=== PATIENT | male | born 1980 | race Caucasian/White ===

== ENCOUNTER 2017-04-30 11:00 | Inpatient (IN) | payer MEDICARE, MEDICAID ==
[2017-04-30 11:40] LABS: Urine Bilirubin Negative (Negative); Urine Glucose Negative (Negative); Urine Nitrite Negative (Negative)
[2017-04-30 11:42] LABS: Hematocrit 49 % (42-52); Hemoglobin 16.7 g/dl (14.0-18.0); Mean Corpuscular HGB Conc 34 g/dl (31-36); Mean Corpuscular Hemoglobin 29 pg (27-31); Mean Corpuscular Volume 85 fL (80-94); Mean Platelet Volume 10 um3 (7.4-10.4); Red Blood Count 5.71 10^6/ul (4.0-5.4); Red Cell Distribution Width 14 % (10.5-15); White Blood Count 7.3 10^3/ul (3.5-10.8)
[2017-04-30 11:49] LABS: Comments Flag Yes
[2017-04-30 11:57] LABS: ALT 17 U/L (7-52); AST 20 U/L (13-39); Albumin 4.9 g/dL (3.2-5.2); Alkaline Phosphatase 32 U/L (34-104); Anion Gap 6 mmol/L (2-11); BUN/Creatinine Ratio 14.4 (8-20); Blood Urea Nitrogen 16 mg/dL (6-24); CO2 Carbon Dioxide 29 mmol/L (22-32); Calcium 9.7 mg/dL (8.6-10.3); Chloride 101 mmol/L (101-111); EGFR African American 97.5 (>60); EGFR Non-African American 75.8 (>60); Globulin 3.6 g/dL (2-4); Glucose 107 mg/dL (70-100); Potassium 3.9 mmol/L (3.5-5.0); Sodium 136 mmol/L (133-145); Total Protein 8.5 g/dL (6.4-8.9)
[2017-04-30 11:58] LABS: Benzodiazepine Urine Screen None Detected (None Detect)
[2017-04-30 11:59] LABS: Acetaminophen < 15 mcg/mL; Alcohol < 10 mg/dL (<10); Salicylate < 2.50 mg/dL (<30)
[2017-04-30 12:09] LABS: TSH (Thyroid Stimulating Horm) 4.55 mcIU/mL (0.34-5.60)
[2017-04-30] MEDS ORDERED: Acetaminophen TAB* 325 MG PO PRN (15:59)
[2017-04-30] MEDS ORDERED: Al Hydrox/Mg Hydrox/Simet LIQ* 30 ML UDC PO PRN (15:59)
[2017-04-30] MEDS: Divalproex ER TAB(*) 500 MG PO SCH (16:43)
--- NOTE | 2017-04-30 18:52 | ED ---
Sergo Zaragoza Benjamin, scribed for Sourav Carrera MD on 04/30/17 at 1119 . Psychiatric Complaint - HPI Summary HPI Summary: 36yo male c/o feeling depressed and hearing voices intermittently. Pt has hx of schizoaffective disorder and bipolar. Pt also reports SI with thoughts of cutting his wrist. SI comes and goes. Has been having trouble sleeping and eating lately. Medication he takes include Depakote and abilify shot, but pt reports missing his meds a few times in the last couple of days. - History Of Current Complaint Chief Complaint: EDPsychosocial Time Seen by Provider: 04/30/17 11:09 Hx Obtained From: Patient Onset/Duration: Gradual Onset, Lasting Hours, Still Present Timing: Intermittent Episode Lasting Severity Initially: Moderate Severity Currently: Moderate Character: Depressed Aggravating Factor(s): Nothing Alleviating Factor(s): Nothing Associated Signs And Symptoms: Positive: Negative Related History: Positive For: Prior Psychiatric Issues - schizoaffective and bipolar Has Suicidal: Reports: Thoughts, With A Plan - cutting his wrist - Allergies/Home Medications Allergies/Adverse Reactions: Allergies Allergy/AdvReac Type Severity Reaction Status Date / Time Ziprasidone [From New] Allergy See Comment Verified 04/30/17 11:07 Home Medications: Home Medications Aripiprazole Lauroxil [Aristada] 882 mg IM MONTHLY 04/30/17 [History Confirmed 04/30/17] Divalproex ER TAB(*) [Depakote ER TAB(*)] 1,500 mg PO DAILY 04/30/17 [History Confirmed 04/30/17] PMH/Surg Hx/FS Hx/Imm Hx Endocrine/Hematology History: Denies: Hx Diabetes, Hx Thyroid Disease Cardiovascular History: Denies: Hx Hypertension Respiratory History: Denies: Hx Asthma, Hx Chronic Obstructive Pulmonary Disease (COPD) GI History: Denies: Hx Ulcer Musculoskeletal History: Reports: Hx Orthopedic Injury - R Humerus fracture Psychiatric History: Reports: Hx Schizophrenia - schizoaffective D/O, Hx Bipolar Disorder, Hx of Violent Episodes Against Others Comment Only: Hx Eating Disorder - uncertain - Surgical History Surgery Procedure, Year, and Place: Right Fifth Finger Tendon Repair Hx Anesthesia Reactions: No Infectious Disease History: Denies: Hx Clostridium Difficile, Hx Hepatitis, Hx Human Immunodeficiency Virus (HIV), Hx of Known/Suspected MRSA, Hx Shingles, Hx Tuberculosis, Hx Known/ Suspected VRE, Hx Known/Suspected VRSA, History Other Infectious Disease, Traveled Outside the [place] in Last 30 Days - Family History Known Family History: Negative: Blood Disorder - Social History Occupation: Unemployed Lives: With Family Alcohol Use: Occasionally Substance Use Type: Reports: None, Other Smoking Status (MU): Never Smoked Tobacco Review of Systems Constitutional: Negative Negative: Fever, Chills Eyes: Negative ENT: Negative Cardiovascular: Negative Negative: Chest Pain Negative: Shortness Of Breath Gastrointestinal: Negative Genitourinary: Negative Musculoskeletal: Negative Skin: Negative Neurological: Negative Positive: Depressed, Other - SI with plan All Other Systems Reviewed And Are Negative: Yes Physical Exam Triage Information Reviewed: Yes Vital Signs On Initial Exam: Initial Vitals Temp Pulse Resp BP Pulse Ox 98.2 F 72 16 158/105 100 04/30/17 11:02 04/30/17 11:02 04/30/17 11:02 04/30/17 11:02 04/30/17 11:02 Vital Signs Reviewed: Yes Appearance: Positive: Well-Appearing, No Pain Distress, Well-Nourished Skin: Positive: Warm, Skin Color Reflects Adequate Perfusion, Dry Head/Face: Positive: Normal Head/Face Inspection Eyes: Positive: Normal ENT: Positive: Normal ENT inspection Neck: Positive: Supple, Nontender Respiratory/Lung Sounds: Positive: Clear to Auscultation, Breath Sounds Present Cardiovascular: Positive: RRR. Negative: Murmur Abdomen Description: Positive: Nontender, Soft Bowel Sounds: Positive: Present Musculoskeletal: Positive: Strength/ROM Intact Neurological: Positive: Sensory/Motor Intact, Alert, Oriented to Person Place, Time Psychiatric: Positive: Affect/Mood Appropriate Diagnostics - Vital Signs Vital Signs Temp Pulse Resp BP Pulse Ox 04/30/17 11:02 98.2 F 72 16 158/105 100 - Laboratory Lab Results: Lab Results 04/30/17 04/30/17 04/30/17 Range/Units 11:20 11:20 11:25 WBC 7.3 (3.5-10.8) 10^3/ul RBC 5.71 H (4.0-5.4) 10^6/ul Hgb 16.7 (14.0-18.0) g/dl Hct 49 (42-52) % MCV 85 (80-94) fL MCH 29 (27-31) pg MCHC 34 (31-36) g/dl RDW 14 (10.5-15) % Plt Count 199 (150-450) 10^3/ul MPV 10 (7.4-10.4) um3 Neut % (Auto) 77.7 (38-83) % Lymph % (Auto) 16.1 L (25-47) % [place] % (Auto) 5.2 (1-9) % Eos % (Auto) 0.7 (0-6) % Baso % (Auto) 0.3 (0-2) % Absolute Neuts (auto) 5.6 (1.5-7.7) 10^3/ul Absolute Lymphs (auto) 1.2 (1.0-4.8) 10^3/ul Absolute Monos (auto) 0.4 (0-0.8) 10^3/ul Absolute Eos (auto) 0.1 (0-0.6) 10^3/ul Absolute Basos (auto) 0 (0-0.2) 10^3/ul Absolute Nucleated RBC 0.01 10^3/ul Nucleated RBC % 0.1 Sodium (133-145) mmol/L Potassium (3.5-5.0) mmol/L Chloride (101-111) mmol/L Carbon Dioxide (22-32) mmol/L Anion Gap (2-11) mmol/L BUN (6-24) mg/dL Creatinine (0.67-1.17) mg/dL Est GFR ( Amer) (>60) Est GFR (Non-Af Amer) (>60) BUN/Creatinine Ratio (8-20) Glucose (70-100) mg/dL Calcium (8.6-10.3) mg/dL Total Bilirubin (0.2-1.0) mg/dL AST (13-39) U/L ALT (7-52) U/L Alkaline Phosphatase (34-104) U/L Total Protein (6.4-8.9) g/dL Albumin (3.2-5.2) g/dL Globulin (2-4) g/dL Albumin/Globulin Ratio (1-3) TSH (0.34-5.60) mcIU/mL Urine Color Colorless Urine Appearance Clear Urine pH 8.0 (5-9) Ur Specific [place] 1.003 L (1.010-1.030) Urine Protein Negative (Negative) Urine Ketones Negative (Negative) Urine Blood Negative (Negative) Urine Nitrate Negative (Negative) Urine Bilirubin Negative (Negative) Urine Urobilinogen Negative (Negative) Ur Leukocyte Esterase Negative (Negative) Urine Glucose Negative (Negative) Salicylates (<30) mg/dL Urine Opiates Screen None detected (None Detect) Acetaminophen mcg/mL Ur Barbiturates Screen None detected (None Detect) Valproic Acid (50-100) mcg/mL Ur Phencyclidine Scrn None detected (None Detect) Ur Amphetamines Screen None detected (None Detect) U Benzodiazepines Scrn None detected (None Detect) Urine Cocaine Screen None detected (None Detect) U Cannabinoids Screen None detected (None Detect) Serum Alcohol (<10) mg/dL 04/30/17 Range/Units 11:25 WBC (3.5-10.8) 10^3/ul RBC (4.0-5.4) 10^6/ul Hgb (14.0-18.0) g/dl Hct (42-52) % MCV (80-94) fL MCH (27-31) pg MCHC (31-36) g/dl RDW (10.5-15) % Plt Count (150-450) 10^3/ul MPV (7.4-10.4) um3 Neut % (Auto) (38-83) % Lymph % (Auto) (25-47) % [place] % (Auto) (1-9) % Eos % (Auto) (0-6) % Baso % (Auto) (0-2) % Absolute Neuts (auto) (1.5-7.7) 10^3/ul Absolute Lymphs (auto) (1.0-4.8) 10^3/ul Absolute Monos (auto) (0-0.8) 10^3/ul Absolute Eos (auto) (0-0.6) 10^3/ul Absolute Basos (auto) (0-0.2) 10^3/ul Absolute Nucleated RBC 10^3/ul Nucleated RBC % Sodium 136 (133-145) mmol/L Potassium 3.9 (3.5-5.0) mmol/L Chloride 101 (101-111) mmol/L Carbon Dioxide 29 (22-32) mmol/L Anion Gap 6 (2-11) mmol/L BUN 16 (6-24) mg/dL Creatinine 1.11 (0.67-1.17) mg/dL Est GFR ( Amer) 97.5 (>60) Est GFR (Non-Af Amer) 75.8 (>60) BUN/Creatinine Ratio 14.4 (8-20) Glucose 107 H (70-100) mg/dL Calcium 9.7 (8.6-10.3) mg/dL Total Bilirubin 0.70 (0.2-1.0) mg/dL AST 20 (13-39) U/L ALT 17 (7-52) U/L Alkaline Phosphatase 32 L (34-104) U/L Total Protein 8.5 (6.4-8.9) g/dL Albumin 4.9 (3.2-5.2) g/dL Globulin 3.6 (2-4) g/dL Albumin/Globulin Ratio 1.4 (1-3) TSH 4.55 (0.34-5.60) mcIU/mL Urine Color Urine Appearance Urine pH (5-9) Ur Specific [place] (1.010-1.030) Urine Protein (Negative) Urine Ketones (Negative) Urine Blood (Negative) Urine Nitrate (Negative) Urine Bilirubin (Negative) Urine Urobilinogen (Negative) Ur Leukocyte Esterase (Negative) Urine Glucose (Negative) Salicylates < 2.50 (<30) mg/dL Urine Opiates Screen (None Detect) Acetaminophen < 15 mcg/mL Ur Barbiturates Screen (None Detect) Valproic Acid 74.0 (50-100) mcg/mL Ur Phencyclidine Scrn (None Detect) Ur Amphetamines Screen (None Detect) U Benzodiazepines Scrn (None Detect) Urine Cocaine Screen (None Detect) U Cannabinoids Screen (None Detect) Serum Alcohol < 10 (<10) mg/dL Result Diagrams: 04/30/17 11:25 04/30/17 11:25 Lab Statement: Any lab studies that have been ordered have been reviewed, and results considered in the medical decision making process. Course/Dx - Course Course Of Treatment: Reviewed pts medication and allergy lists. Blood pressure noted. Pt is medically cleared for [facility] evaluation at 12:31. - Differential Dx/Clinical Impression Provider Diagnosis: Bipolar 1 disorder, depressed Discharge - Discharge Plan Condition: Stable Disposition: ADMITTED TO [facility] The documentation as recorded by the prateekibSergo puckett Benjamin accurately reflects the service I personally performed and the decisions made by me, Sourav Carrera MD.
[2017-05-01] MEDS: Divalproex ER TAB(*) 500 MG PO SCH (08:16)
--- NOTE | 2017-05-01 22:32 | HP ---
PSYCHIATRIC HISTORY AND PHYSICAL: DATE OF ADMISSION: 04/30/17 JUSTIFICATION FOR ADMISSION: The patient is in need of 24-hour supervision and care secondary to suicidal ideations. CHIEF COMPLAINT: "I think the voices came from the [employer], they are telling me to do things." HISTORY OF PRESENT ILLNESS: The patient is a 36-year-old, single, white male with a history of schizoaffective disorder, who was brought in by his parents on a voluntary basis secondary to vague passive suicidal ideations. The patient apparently has a history of sexual misconduct in the form of masturbating in public and when he gets manic, he tends to have sexualized symptoms. Within several days of this admission, he got into trouble after texting a 16-year-old female neighbor a sexually inappropriate message. Currently, the patient endorses auditory hallucinations as well as thought broadcasting and thought insertion stating "I talk to the [employer] and they told me it was okay to ask my neighbor to contact me when she turns 19." He has been fairly recently experiencing manic symptoms. He indicates that he missed several days' worth of his Depakote because he likes the feeling of being manic. I did check a valproic acid level in the emergency room, which was therapeutic at 74. The patient does present with fair amount of insight stating "I want to be a good person, not a bad one." He acknowledges having thoughts of suicide as well as hurting others, but denies any specific plans or urges to act on these. He feels at this point that he just needs a little more support and counseling. His parents indicated in our emergency facility that they feel he needs more intensive treatment including a day treatment program or perhaps a job. Currently, the patient is living with his parents and have joint custody of his 9-year-old daughter. PAST PSYCHIATRIC HISTORY: The patient's last admission here at [facility] was in June of 2013, at which time, he was sent to [facility]. He also had a hospitalization at [facility] in 2008, which was similarly followed by transfer to [facility]. In addition, he did have a psychiatric admission at [facility] in November of 2008. Outpatient treatment is with Dr. Alejandro Steiner at [facility] and he sees his counselor, Zaid López, approximately once per month. The patient used to receive case management services at the clinic; however, his director of casework services retired several years ago and he has been without these services since. Past psychiatric medications include trials of Invega, Thorazine, Ativan, and Geodon. His past diagnosis is schizoaffective disorder, bipolar type. SUBSTANCE ABUSE HISTORY: The patient used to be heavy cannabis smoker, but he has not done this in 7 to 8 years. He denies any other drug use. He is a nonsmoker and does not abuse alcohol. PAST MEDICAL HISTORY: He has a history of hypogonadism for which he used to take testosterone injections. CURRENT MEDICATIONS: Include: 1. Abilify. 2. Aristada, he takes 882 mg once monthly. 3. His last injection was administered on 04/09/17, with the next being due on 05/07/17. Other medications include Depakote 1500 mg p.o. daily. SOCIAL HISTORY: The patient is the oldest of 4 children with 2 younger brothers and 1 sister. He was born in [place], but moved to this area when he was 6 years old. He did get his associate's degree. He is currently and has a 9-year- old daughter. Often, he focuses on weightlifting. He has not worked since 2014 when he was laid off from [employer] in [place], [place]. LEGAL HISTORY: Indicates that he has been arrested for trespassing and public lewdness. He does have a history of masturbating in public as well as conflict with police and threatening others. At times, he has had potential association with white [employer] groups and has owned knives, although he minimizes this at this time. REVIEW OF SYSTEMS: The patient denies headache or double vision. He denies sore throat, chest pain, cough, or difficulty breathing. He denies abdominal pain, nausea, vomiting, diarrhea, or constipation. He denies difficulty ambulating, rashes, enlarged lymph nodes, fevers, or change in weight. PHYSICAL EXAMINATION VITAL SIGNS: Blood pressure elevated at 152/76, heart rate is 65, respiratory rate 16, temperature 97.5 degrees Fahrenheit, oxygen saturations are 100% on room air. HEENT: Head is normocephalic, atraumatic. NECK: Supple. CHEST: Clear to auscultation bilaterally. CARDIAC: Exam reveals normal heart sounds. ABDOMEN: Soft and nontender. MUSCULOSKELETAL: Exam reveals full range of motion in all 4 extremities. NEUROLOGICAL: He is grossly intact. SKIN: Warm and dry. MENTAL STATUS EXAM: The patient is a young white male, who is muscular, well built. He is balding, with eye glasses. He is calm, cooperative, makes good eye contact. I do note at times he peers over to the side as though responding to internal stimuli, but otherwise speech has a normal rate, tone, and volume. Mood appears to be euthymic with a somewhat flattened affect. Thought process is linear and goal directed. Thought content is significant for evidence of paranoia. He denies suicidal or homicidal ideations currently, although he has had these recently of a passive nature. He is endorsing auditory hallucinations , but denies visual hallucinations. He is also endorsing thought broadcasting and thought insertion. Insight and judgment appeared to be fair given his voluntary willingness to come here for treatment. Cognitively, he is awake and alert with what would appear to be an average intellect. LABORATORY DATA: Complete blood count is within normal limits as is his complete metabolic panel. Urinalysis is within normal limits. Urine drug screen is negative for all substances tested. His therapeutic valproic acid level is 74.0. DIAGNOSES: [place] I: Schizoaffective disorder, bipolar type. [place] II: Deferred. [place] III: Hypogonadism. [place] IV: Moderate primary support stressors. [place] V: At this time is 40. IMPRESSION: The patient is a 36-year-old white male with a history of schizoaffective disorder, who arrives voluntarily having been brought in by his parents due to a recent increase in manic and psychotic symptoms culminating in event in which he inappropriately text messaged his underage next door neighbor suggesting a sexual tryst. My understanding is that his neighbor's family is quite upset about this, although it is not clear that he has had legal ramifications as of yet. He is presenting with paranoia, auditory hallucinations, depressed mood, and an interest in changing his medications. PLAN: The patient is admitted to the adult behavioral health unit where he was placed on q.15-minute checks for his own safety. He has already resumed Depakote 1500 mg daily. He is wanting to switch back to the brand name of Abilify and so we will start a trial tomorrow of Abilify Maintena 400 mg monthly. I put in a phone call to his psychiatrist, Dr. Alejandro Steiner, seeking collateral information and we would certainly want to speak to his family members as well. While the patient is here, he is certainly encouraged to avail himself of all milieu activities including group and individual psychotherapies. There is some indiction that his parents perhaps will not allow him to come home and in that event, we would seek supportive housing in the community. [id number]/[facility] #: [id number] MTDSaul
[2017-05-02] MEDS: Divalproex ER TAB(*) 500 MG PO SCH (08:21)
--- NOTE | 2017-05-02 14:31 | PN ---
Subjective - Subjective Service Type: 00564 Hosp care 15 min low complexity Subjective: Osito appears in good spirits today with a reduction in paranoia and AH as well as reduced thought insertion and broadcasting. He tolerated the switch to Abilify Maintaina this AM and feels his symptoms are diminishing. He is future- oriented, talking about going back to college to get a bachelor's degree, and asking if a case-manager beverage through the clinic could help him with this. He has been safe on all checks with no inappropriate comments or behaviors noted. He requests d/c to his parents' home tomorrow. Objective - Appearance Appearance: Well Developed/Nourished Dysmorphic Features: No Hygiene: Normal Grooming: Well Kept - Behavior Psychomotor Activities: Normal Exhibits Abnormal Movement: No - Attitude and Relatedness Attitude and Relatedness: Cooperative Eye Contact: Good - Speech Quality: Unpressured Latencies: Normal Quantity: Appropriate - Mood Patient's Decription of Mood: "Good" - Affect Observed Affect: Unvariable Affect Consistent with: Euthymia - Thought Process Patient's Thought Process: Coherent Thought Content: No Passive Wish, No Suicidal Planning, No Homicidal Ideation, No Paranoid Ideation - Sensorium Experiencing Hallucinations: No, Sensorium is Clear Type of Hallucinations: Visual: No, Auditory: No, Command: No - Level of Consciousness Level of Consciousness: Alert Orientation: Yes Intact, Yes Orientated to Time, Yes Orientated to Place, Yes Orientated to Person - Impulse Control Impulse Control: Intact - Insight and Judgement Insight and Judgement: Good - Group Participation Particating in Group Activities: Yes - Medication Management Medication Management Adherence: Yes Assessment - Assessment Merits Inpatient Hospitalization: Consolidate Improvements, Pending Safe DC Plan Inpatient DSM-IV Dx: Schizoaffective, bipolar type Clinical Impression: 36 y.o. , white male with a history of schizoaffective disorder self- referred to the ED due to increased psychosis and inappropriate sexual behavior in the community. Acting on behalf of stanley he allegedly sent a minor female neighbor an invitation to have a sexual encounter with him. Plan - Plan Treatment Plan: Name: OSITO FERNANDEZ Birthdate: 1980 [id number] We have changed aripiprazole Aristada back to aripiprazole Maintaina, giving him the first dose of 400mg IM this AM. Spoke with outpatient psychiatrist, Dr. David Steiner at [facility], who is in support of the treatment plan. Will likely d/c to his parents' home tomorrow, Saturday, 05/03. Continued Medication Management: Different Medication Medications: Current Medications Acetaminophen (Tylenol Tab*) 650 mg PO Q4H PRN PRN Reason: for pain; or Temp >101 F Al Hydrox/Mg Hydrox/Simethicone (Maalox Plus*) 30 ml PO Q4H PRN PRN Reason: INDIGESTION Aripiprazole (Denisse Maintena (Nf)) 400 mg IM Q28D [facility] Last Admin: 05/02/17 09:52 Dose: 400 mg Divalproex Sodium (Depakote Er Tab(*)) 1,500 mg PO DAILY [facility] Last Admin: 05/02/17 08:21 Dose: 1,500 mg - Discharge Plan Discharge Plan: Outpatient Follow Up Outpatient Program: [facility]
--- NOTE | 2017-05-02 15:57 | PN ---
[facility]: Group Therapy Note - Service Type Service Type: 20135 Group Psychotherapy - Group Participation Patient Participating in Group: Yes Level of Group Participation: Attentive, Spontaneously Participate Relatedness to Group: Well Related
[2017-05-03] MEDS: Divalproex ER TAB(*) 500 MG PO SCH (07:37)
[2017-05-03 08:52] VITALS: BP 116/74
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
== END 2017-05-03 14:30 | disposition home or self-care (01) | DRG 885 ==
LOC: ED 11:00 → BSU 16:31
PROVIDERS: ADMIT Psychiatry & Neurology Psychiatry; ATTEND Psychiatry & Neurology Psychiatry
PROC: GZHZZZZ Group Psychotherapy (ICD-10-PCS; principal; 2017-04-30)
DX: F25.0 Schizoaffective disorder, bipolar type (principal); E23.0 Hypopituitarism; R45.851 Suicidal ideations; Z88.8 Allergy status to other drugs, medicaments and biological substances; Z72.89 Other problems related to lifestyle; Z56.0 Unemployment, unspecified
CPT/HCPCS: 36415; 80053; 80164; 80307; 80320; 80329; 81003; 84443; 85025; 90853; 99222; 99231; 99238; A9270-GY; G0480

== ENCOUNTER 2018-03-11 20:21 | Emergency (ER) | payer MEDICARE, MEDICAID ==
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
[2018-03-11 21:38] LABS: ABS Basophils 0 10^3/ul (0-0.2); ABS Eosinophils 0.2 10^3/ul (0-0.6); ABS Lymphocytes 2.2 10^3/ul (1.0-4.8); ABS Monocytes 0.4 10^3/ul (0-0.8); ABS Neutrophils 3.5 10^3/ul (1.5-7.7); ABS Nucleated RBC 0 10^3/ul; Eosinophil % 3.5 % (0-6); Hematocrit 45 % (42-52); Hemoglobin 16.1 g/dl (14.0-18.0); Lymphocyte % 34.9 % (25-47); Mean Corpuscular HGB Conc 36 g/dl (31-36); Mean Corpuscular Hemoglobin 30 pg (27-31); Mean Corpuscular Volume 84 fL (80-94); Mean Platelet Volume 9.9 um3 (7.4-10.4); Nucleated Red Blood Cells % 0.2; Platelet Count 215 10^3/ul (150-450); Red Blood Count 5.37 10^6/ul (4.00-5.40); Red Cell Distribution Width 14 % (10.5-15); White Blood Count 6.4 10^3/ul (3.5-10.8)
[2018-03-11 21:55] LABS: EGFR Non-African American 74.6 (>60)
--- NOTE | 2018-03-12 01:11 | ED ---
Luzma Zaragoza Rebecca, scribed for Paulette Turner MD on 03/12/18 at 0059 . Progress - Progress Note Progress Note: Pt was signed out by Dr. Garcia, pending dispo, awaiting MHE. Course/Dx - Course Course Of Treatment: Pt was signed out by Dr. Garcia, pending dispo, awaiting MHE. Upon completion of MHE and consultation with Dr. Son, it has been determined that the pt can be D/C to home with Dx of unspecified depression. - Diagnoses Provider Diagnoses: Depression Discharge - Sign-Out/Discharge Documenting (check all that apply): Discharge/Admit/Transfer - Discharge, Receiving Sign-Out Receiving patient FROM: Nick Garcia - Discharge Plan Condition: Stable Disposition: HOME Referrals: Rosas Osborn MD [Primary Care Provider] - The documentation as recorded by the Luzma rudolph Rebecca accurately reflects the service I personally performed and the decisions made by Yue fernandes Abdul, MD.
[2018-03-12 01:25] VITALS: BP 137/95
== END 2018-03-12 01:23 | disposition home or self-care (01) ==
LOC: ED 20:21
DX: F32.9 Major depressive disorder, single episode, unspecified (principal); F43.9 Reaction to severe stress, unspecified
CPT/HCPCS: 36415; 80053; 80320; 80329; 84443; 85025; 99285; G0480

== ENCOUNTER 2018-05-09 11:13 | Emergency (ER) | payer MEDICARE, MEDICAID ==
[2018-05-09 12:07] VITALS: BP 134/92
--- NOTE | 2018-05-09 13:24 | UC ---
Back Pain HPI - HPI Summary HPI Summary: c/o low back pain ever since he started working out, initially had pain on legs and started leaning forward to avoid pain there, then felt strain in lower back as he lifted weights. Devin radiation of pain to legs, denies numbness, sphincter control intact. - History of Current Complaint Chief Complaint: UCBackPain Stated Complaint: LOW BACK INJURY Time Seen by Provider: 05/09/18 13:08 Hx Obtained From: Patient Onset/Duration: Sudden Onset, Lasting Days Timing: Constant Severity Initially: Moderate Severity Currently: Moderate Pain Intensity: 7 Character: Dull, Aching Aggravating Factor(s): Movement, Lifting, Bending Alleviating Factor(s): Rest, Position Associated Signs And Symptoms: Positive: Negative - Risk Factors AAA Risk Factors: Negative TAD Risk Factors: Negative Cauda Equina Risk Factors: Negative Epidural Abscess Risk Factors: Negative - Allergies/Home Medications Allergies/Adverse Reactions: Allergies Allergy/AdvReac Type Severity Reaction Status Date / Time ziprasidone [From [facility]] Allergy Unknown Verified 05/09/18 12:02 Reaction Details PMH/Surg Hx/FS Hx/Imm Hx Previously Healthy: Yes Psychological History: Bipolar Disorder, Other - schizoaffective disorder Other Psychological History: schizoaffective disorder - Surgical History Surgical History: Yes Surgery Procedure, Year, and Place: Right Fifth Finger Tendon Repair, ~2002, [place] - Family History Known Family History: Positive: None Negative: Blood Disorder - Social History Alcohol Use: None Alcohol Amount: "once every ccouple of weeks" Substance Use Type: None Smoking Status (MU): Never Smoked Tobacco - Immunization History Most Recent Influenza Vaccination: this fall of 2012, unable to recall specific date. Most Recent Tetanus Shot: unable to recall Most Recent Pneumonia Vaccination: unable to recall Review of Systems Musculoskeletal: Arthralgia, Myalgia All Other Systems Reviewed And Are Negative: Yes Physical Exam Triage Information Reviewed: Yes Appearance: Well-Appearing, No Pain Distress, Well-Nourished Vital Signs: Initial Vital Signs Temp 97.4 F 05/09/18 11:58 Pulse 64 05/09/18 11:58 Resp 14 05/09/18 11:58 BP 134/92 05/09/18 11:58 Pulse Ox 100 05/09/18 11:58 Vital Signs Reviewed: Yes Eyes: Positive: Conjunctiva Clear ENT: Positive: Hearing grossly normal, Pharynx normal, TMs normal Neck: Positive: Supple, Nontender Respiratory: Positive: Chest non-tender Cardiovascular: Positive: Pulses Normal, Brisk Capillary Refill Abdomen Description: Positive: Nontender Bowel Sounds: Positive: Present Musculoskeletal: Positive: Strength Intact, ROM Intact, No Edema, Other: - DTR LE symmetric and present, SLR negative, sensory intact Neurological: Positive: Muscle Tone Normal Back Pain Course/Dx - Course Course Of Treatment: discussed with patient supervised exercises, referral to PT , ibuprofen and tizanidine as needed for pain, appropriate hydration - Differential Dx/Diagnosis Provider Diagnoses: low back strain Discharge - Sign-Out/Discharge Documenting (check all that apply): Patient Departure All imaging exams completed and their final reports reviewed: No Studies - Discharge Plan Condition: Stable Disposition: HOME Prescriptions: Ibuprofen TAB* [Motrin TAB* 600 MG] 600 mg PO Q6H PRN #30 tab PRN Reason: Pain tiZANidine TAB* [Zanaflex TAB*] 2 mg PO TID PRN 10 Days #30 tab PRN Reason: Pain Patient Education Materials: Ibuprofen (By mouth), Tizanidine (By mouth), Low Back Strain (ED), Core Strengthening Exercises (GEN), Lower Back Exercises (ED) Referrals: Rosas Osborn MD [Primary Care Provider] - - Billing Disposition and Condition Condition: STABLE Disposition: Home
== END 2018-05-09 13:47 | disposition home or self-care (01) ==
LOC: UCCORT 11:13
DX: S39.012A Strain of muscle, fascia and tendon of lower back, initial encounter (principal); X50.0XXA Overexertion from strenuous movement or load, initial encounter; Y93.B3 Activity, free weights; Y92.9 Unspecified place or not applicable; Z88.8 Allergy status to other drugs, medicaments and biological substances
CPT/HCPCS: 99212; G0463

== ENCOUNTER 2018-06-16 13:23 | Emergency (ER) | payer MEDICARE, MEDICAID ==
--- OUTSIDE RECORDS SUMMARY | 2018-06-16 13:48 | XMS REPORT ---
:1980 External Reference #:[id number] Author Organization [employer] Address [address] [place] [address] [place] [address] Phone [phone] Care Team Providers Name Role Phone Rosas Osborn MD Care Team Information Media Manager Unavailable Rosas Osborn MD Primary Care Physician Unavailable Payers Type Date Identification Numbers Payment Provider Subscriber Medicare Primary Effective: Policy Number: Medicare Osito Ayala 2010 [id number] PayID: [id number] [address] [place] [address] [facility] Policy Number: [id number] Medicaid Osito Ayala Group Name: [id number] [address] PayID: [id number] [place] [address] Problems Date Description Provider Status Onset: 04/12/2009 Bipolar disorder Rosas Osborn M.D.,FACP Active Onset: 10/03/2011 Iron deficiency anemia Inocencia Booth, N.P. Active Onset: 10/03/2011 Vitamin D deficiency Inocencia Booth, N.P. Active Onset: 10/03/2011 Allergic rhinitis Inocencia Booth, N.P. Active Onset: 10/03/2011 Pure hyperglyceridemia Inocencia Booth, N.P. Active Onset: 11/05/2012 Testicular hypofunction Rosas Osborn M.D.,FACP Active Family History Date Family Member(s) Problem(s) Comments General Lung Cancer Social History Type Date Description Comments Lives With Family Occupation Unemployed Cigarette Use Never Smoked Cigarettes ETOH Use 01/01/2016 Denies alcohol use Recreational Drug Use Denies Drug Use Smoking Patient has never smoked General Hx Text 1 daughter, 6 yo Allergies, Adverse Reactions, Alerts Date Description Reaction Status Severity Comments 03/30/2008 NKDA active Medications Medication Date Status Form Strength Qnty SIG Indications Ordering Provider Ciclopirox 02/24 Active Cream 0.77% 30gm apply to Rosas Olamine /2017 affected Dell Osborn, area every M.D.,FACP day as needed mixed w/ topical steroid Triamcinolone 02/24 Active Cream 0.025% 80gm topical to Rosas Acetonide /2017 face/neck Dell Osborn, qd prn M.D.,FACP Depakote Active Tablets DR 500mg 3 tabs po q Unknown / morning Abilify Maintena Active Suspension 500-600mg 1 injection Unknown / Rec per month Vitamin D Active Tablets 1000Unit by mouth Unknown / everyday Mometasone 01/23 Hx Suspension 50mcg/Act 17gm 1 spray Rosas Furoate /2016 each Dell Osborn, - nostril qd M.D.,FACP 01/24 Androderm 04/22 Hx Patches 4mg/24HR 30uni topical qd 257.2 Rosas 24HR ts Dell Osborn, - Ernst.Dell,[facility] 04/27 3ML 10/28 Hx Misc 22G X 1" 6unit use weekly 257.2 Rosas Syringe/Needle /2012 3 ML s for Sav Mayer Wall - ashely Ortega,[facility] Luer-[place] 22GX1" 06/08 e Im injections 3ML 10/07 Hx Misc 22G X 1" 12uni use weekly 257.2 Rosas Syringe/Needle /2012 3 ML ts for Dell Osborn Thin Wall - testosteron Shannon,[facility] Luer-[place] 22GX1" 10/07 e Im injections 3ML Luer-[place] 10/07 Hx Misc 21G X 1" 12uni im q 2 257.2 Rosas Syringe 20G /2012 3 ML ts weeks for Dell Osborn, X 1" - Ashely Ortega,[facility] 10/28 e injections Testosterone 10/03 Hx Oil 200mg/ml 10ml 1.5 ml im 257.2 [place] Cypionate /2012 q2wks Viridiana Andres M.D. 06/08 Testosterone 10/02 Hx Oil 100mg/ml 2ml 1 ml im q2 257.2 Rosas Cypionate /2012 weeks. Viridiana Mayer M.D.,[facility] 10/03 2-3ML 10/02 Hx Misc 3ml 12uni with needle 257.2 Rosas Syringe/Luer /2012 ts 18 gauge Dell Osborn, Lock Tip - 2x/mon Ernst.Dell,[facility] 10/07 Androderm 09/03 Hx Patches 4mg/24HR 30uni topical qd 257.2 24HR ts Viridiana Mayer M.D.,[facility] 11/05 Axiron 09/01 Hx Solution 30mg/Act 60dos 1 pump each 257.2 es underarm qd Viridiana Mayer M.D.,[facility] 09/03 Fluticasone 10/03 Hx Suspension 50mcg/Act 16gm Inhale 2 477.9 Inocencia Propionate sprays into [place]-[facility] - nostril atson, 09/01 daily in N.P. /2011 each nostril for allergic rhinitis Pramipexole 12/20 Hx Tablets 0.25mg 60tab take 1 to 2 333.94 Rosas Dihydrochloride /2010 s tablets at Dell Osborn, - bedtime if M.DPrimo,[facility] 10/03 needed Invega 07/28 Hx Tablets ER 9mg po qd 24HR Viridiana Mayer M.D.,[facility] 08/04 Mirapex 07/28 Hx Tablets 0.25mg 60tab take one to 333.94 Rosas s two tablet Dell Osborn, - at bedtime M.DPrimo,[facility] 12/20 as needed Invega 03/30 Hx Tablets ER ? 1 po qAM Rosas 24HR Viridiana Mayer M.D.,[facility] 07/28 Viagra 03/30 Hx Tablets 50mg 3tabs 1 po prn 607.84 Viridiana Mayer M.D.,[facility] 10/03 Vitamin D 01/23 Hx Capsules 400Unit 60cap 1 po bid s Viridiana Mayer M.D.,[facility] 09/01 Risperdal 09/20 Hx Tablets 3mg 1 po qpm Viridiana Mayer M.D.,[facility] 03/30 Depakote 05/[address] 250mg 2 po in evening Viridiana Mayer M.D.,[facility] 08/04 Depakote 05/[address] 500mg 3 po @ 6pm 300.00 nightly Viridiana Mayer M.D.,[facility] 10/03 Risperdal 05/04 Hx Tablets 4mg 30tab by mouth at s 8PM daily Viridiana Mayer M.D.,[facility] 09/20 Depakote ER 05/04 Hx Tablets ER 250mg 30tab 1 tab PO 24HR s q6pm with Dell Osborn - 500x3 Shannon,[facility] 05/10 depakote Lexapro 07/14 Hx Tablets 10mg 30tab 1 PO Every 300.00 s Day Viridiana Mayer M.D.,[facility] 04/12 samples Risperdal Hx Tablets 30tab 1 po at 6PM Unknown /0000 s - 05/04 Depakote ER Hx Tablets ER 500mg 90tab 3 tabs PO 300.00 24HR s at 6PM Viridiana Mayer M.D.,[facility] 05/10 Testosterone 00 Hx Injections - 06/12 Invega Sustenna Hx Suspension 117mg/0.7 Im every 4 Unknown /0000 5ML weeks. - 06/07 Paxil Hx Tablets 40mg 1 po qd Unknown / - 06/07 Abilify Hx Tablets 20mg 30tab 1 by mouth / s every day - 12/18 Vitamin D 00/ Hx Liquid 400Unit/M Unknown /0000 L - 02/24 Immunizations CPT Code Status Date Vaccine Lot # [id number] Given 05/20/2016 Flu Vaccine [place] [id number] Given 06/07/2014 Influenza Virus Vaccine, Quadrivalent, Split, [id number] Preservative Free [id number] Given 06/12/2013 Flu Vaccine Split Virus Preservative Free For [id number] Indiv 3Yr Older [id number] Given 09/01/2012 Fluvirin Im 3Yrs And Older [id number] Q2038 Given 07/26/2011 Fluzone Vaccine 20137 Given 07/21/2010 Influenza Virus 3Yrs & Over [id number] Vital Signs Date Vital Result Comment 05/21/2018 Height 69 inches 5'9" Weight 203.00 lb Heart Rate 64 /min BP Systolic Sitting 120 mmHg BP Diastolic Sitting 88 mmHg O2 % BldC Oximetry 99 % BMI (Body Mass Index) 30.0 kg/m2 02/24/2018 Height 69 inches 5'9" Weight 207.00 lb Heart Rate 64 /min BP Systolic Sitting 126 mmHg BP Diastolic Sitting 80 mmHg Body Temperature 96.0 F O2 % BldC Oximetry 98 % BMI (Body Mass Index) 30.6 kg/m2 11/20/2017 Weight 216.25 lb Heart Rate 68 /min BP Systolic 130 mmHg BP Diastolic 85 mmHg Body Temperature 98.9 F O2 % BldC Oximetry 98 % 01/23/2017 Weight 209.38 lb Heart Rate 72 /min BP Systolic Sitting 150 mmHg BP Diastolic Sitting 100 mmHg BP Systolic Recheck 148 mmHg BP Diastolic Recheck 95 mmHg Body Temperature 97.1 F O2 % BldC Oximetry 99 % 12/19/2015 Height 68.5 inches 5'8.50" Weight 208.25 lb Heart Rate 60 /min BP Systolic Sitting 139 mmHg BP Diastolic Sitting 83 mmHg Body Temperature 97.0 F O2 % BldC Oximetry 99 % BMI (Body Mass Index) 31.2 kg/m2 10/10/2015 Height 68.5 inches 5'8.50" Weight 208.00 lb Heart Rate 56 /min BP Systolic 117 mmHg BP Diastolic 68 mmHg Body Temperature 97.2 F O2 % BldC Oximetry 100 % BMI (Body Mass Index) 31.2 kg/m2 06/21/2014 Height 68.5 inches 5'8.50" Weight 213.50 lb Heart Rate 72 /min BP Systolic Sitting 128 mmHg BP Diastolic Sitting 84 mmHg Body Temperature 97.5 F BMI (Body Mass Index) 32.0 kg/m2 06/07/2014 Height 69 inches 5'9" Weight 222.25 lb Heart Rate 88 /min BP Systolic Sitting 160 mmHg BP Diastolic Sitting 80 mmHg Body Temperature 97.7 F O2 % BldC Oximetry 98 % BMI (Body Mass Index) 32.8 kg/m2 04/22/2014 Height 69 inches 5'9" Weight 211.00 lb Heart Rate 108 /min BP Systolic Sitting 134 mmHg BP Diastolic Sitting 88 mmHg Body Temperature 96.9 F BMI (Body Mass Index) 31.2 kg/m2 03/17/2014 Height 69 inches 5'9" Weight 205.00 lb Heart Rate 80 /min BP Systolic Sitting 126 mmHg BP Diastolic Sitting 80 mmHg BMI (Body Mass Index) 30.3 kg/m2 06/12/2013 Weight 188.50 lb Heart Rate 86 /min BP Systolic Sitting 170 mmHg BP Diastolic Sitting 82 mmHg 12/31/2012 Height 69 inches 5'9" Weight 200.50 lb Heart Rate 80 /min BP Systolic Sitting 118 mmHg BP Diastolic Sitting 74 mmHg BMI (Body Mass Index) 29.6 kg/m2 11/05/2012 Height 68.5 inches 5'8.50" Weight 201.00 lb Heart Rate 88 /min BP Systolic Sitting 122 mmHg BP Diastolic Sitting 84 mmHg BMI (Body Mass Index) 30.1 kg/m2 10/02/2012 Weight 204.00 lb Heart Rate 76 /min BP Systolic Sitting 146 mmHg BP Diastolic Sitting 86 mmHg 09/01/2012 Height 68.50 inches 5'8.50" Weight 195.00 lb BMI (Body Mass Index) 29.2 kg/m2 10/03/2011 Height 68.50 inches 5'8.50" Weight 220.00 lb Heart Rate 89 /min BP Systolic Sitting 135 mmHg BP Diastolic Sitting 95 mmHg Body Temperature 96.1 F BMI (Body Mass Index) 33.0 kg/m2 09/01/2010 Weight 248.00 lb Heart Rate 90 /min BP Systolic Sitting 132 mmHg BP Diastolic Sitting 86 mmHg 07/28/2010 Weight 240.00 lb Heart Rate 80 /min BP Systolic Sitting 140 mmHg BP Diastolic Sitting 90 mmHg 03/30/2010 Weight 234.00 lb Heart Rate 80 /min BP Systolic Sitting 136 mmHg BP Diastolic Sitting 82 mmHg 01/23/2010 Weight 241.00 lb Heart Rate 80 /min BP Systolic 136 mmHg BP Diastolic 80 mmHg 09/20/2009 Weight 232.00 lb Heart Rate 76 /min BP Systolic Sitting 115 mmHg BP Diastolic Sitting 75 mmHg 08/03/2009 Weight 221.00 lb Heart Rate 70 /min BP Systolic Sitting 130 mmHg BP Diastolic Sitting 90 mmHg 05/04/2009 Weight 213.00 lb Heart Rate 90 /min BP Systolic Sitting 120 mmHg BP Diastolic Sitting 70 mmHg 04/12/2009 Weight 197.50 lb Heart Rate 130 /min BP Systolic Sitting 142 mmHg BP Diastolic Sitting 80 mmHg Respiratory Rate 24 /min 07/14/2008 Height 69 inches 5'9" Weight 182.00 lb Heart Rate 68 /min BP Systolic Sitting 128 mmHg BP Diastolic Sitting 76 mmHg BMI (Body Mass Index) 26.9 kg/m2 03/30/2008 Height 69 inches 5'9" Weight 173.00 lb Heart Rate 68 /min BP Systolic Sitting 164 mmHg BP Diastolic Sitting 80 mmHg BMI (Body Mass Index) 25.5 kg/m2 Results Test Date Test Result H/L Range Note CBC Auto Diff 03/11/2018 White Blood Count 6.4 10^3/uL 3.5-10.8 Red Blood Count 5.37 10^6/uL 4.00-5.40 Hemoglobin 16.1 g/dL 14.0-18.0 Hematocrit 45 % 42-52 Mean Corpuscular Volume 84 fL 80-94 Mean Corpuscular Hemoglobin 30 pg 27-31 Mean Corpuscular HGB Conc 36 g/dL 31-36 Red Cell Distribution Width 14 % 10.5-15 Platelet Count 215 10^3/uL 150-450 Mean Platelet Volume 9.9 um3 7.4-10.4 Abs Neutrophils 3.5 10^3/uL 1.5-7.7 Abs Lymphocytes 2.2 10^3/uL 1.0-4.8 Abs Monocytes 0.4 10^3/uL 0-0.8 Abs Eosinophils 0.2 10^3/uL 0-0.6 Abs Basophils 0 10^3/uL 0-0.2 Abs Nucleated RBC 0 10^3/uL Granulocyte % 54.4 % 38-83 Lymphocyte % 34.9 % 25-47 Monocyte % 6.7 % 0-7 Eosinophil % 3.5 % 0-6 Basophil % 0.5 % 0-2 Nucleated Red Blood Cells % 0.2 Comp Metabolic Panel 03/11/2018 Sodium 139 mmol/L 135-145 Chloride 102 mmol/L 101-111 Co2 Carbon Dioxide 30 mmol/L 22-32 Glucose 101 mg/dL High 70-100 Blood Urea Nitrogen 14 mg/dL 6-24 Creatinine 1.12 mg/dL 0.67-1.17 BUN/Creatinine Ratio 12.5 8-20 Calcium 9.6 mg/dL 8.6-10.3 Total Protein 7.8 g/dL 6.4-8.9 Albumin 4.5 g/dL 3.2-5.2 Globulin 3.3 g/dL 2-4 Albumin/Globulin Ratio 1.4 1-3 Total Bilirubin 0.40 mg/dL 0.2-1.0 Alkaline Phosphatase 34 U/L 34-104 Alt 18 U/L 7-52 Egfr Non- 74.6 >60 Egfr 90.3 >60 1 Potassium TNP mmol/L 3.5-5.0 2 Anion Gap 7 mmol/L 2-11 Ast TNP U/L 13-39 3 Laboratory test finding 03/11/2018 Acetaminophen < 15 g/mL 4 Alcohol < 10 mg/dL <10 Salicylate < 2.50 mg/dL <30 TSH (Thyroid Stim Horm) 2.87 mcIU/mL 0.34-5.60 Urinalysis Profile 04/30/2017 Urine Color Colorless Urine Appearance Clear Urine Specific [place] 1.003 Low 1.010-1.030 Urine pH 8.0 5-9 Urine Urobilinogen Negative Negative Urine Ketones Negative Negative Urine Protein Negative Negative Urine Leukocytes Negative Negative Urine Blood Negative Negative Urine Nitrite Negative Negative Urine Bilirubin Negative Negative Urine Glucose Negative Negative Urine Drug SCR ED & 04/30/2017 Amphetamine Ur Screen None Detected None Detect Pain Clinic Barbiturates Urine Screen None Detected None Detect Benzodiazepine Urine Screen None Detected None Detect Urine Cannabinoids Screen None Detected None Detect Urine Cocaine Screen None Detected None Detect Urine Opiates Screen None Detected None Detect Urine Phencyclidine Screen None Detected None Detect 5 Comp Metabolic Panel 04/30/2017 Sodium 136 mmol/L 133-145 Potassium 3.9 mmol/L 3.5-5.0 Chloride 101 mmol/L 101-111 Co2 Carbon Dioxide 29 mmol/L 22-32 Anion Gap 6 mmol/L 2-11 Glucose 107 mg/dL High 70-100 Blood Urea Nitrogen 16 mg/dL 6-24 Creatinine 1.11 mg/dL 0.67-1.17 BUN/Creatinine Ratio 14.4 8-20 Calcium 9.7 mg/dL 8.6-10.3 Total Protein 8.5 g/dL 6.4-8.9 Albumin 4.9 g/dL 3.2-5.2 Globulin 3.6 g/dL 2-4 Albumin/Globulin Ratio 1.4 1-3 Total Bilirubin 0.70 mg/dL 0.2-1.0 Alkaline Phosphatase 32 U/L Low 34-104 Alt 17 U/L 7-52 Ast 20 U/L 13-39 Egfr Non- 75.8 >60 Egfr 97.5 >60 6 Laboratory test finding 04/30/2017 Valproic Acid (Depakene) 74.0 g/mL 50-100 Acetaminophen < 15 g/mL 7 Alcohol < 10 mg/dL <10 Salicylate < 2.50 mg/dL <30 TSH (Thyroid Stim Horm) 4.55 mcIU/mL 0.34-5.60 CBC Auto Diff 04/30/2017 White Blood Count 7.3 10^3/uL 3.5-10.8 Red Blood Count 5.71 10^6/uL High 4.0-5.4 Hemoglobin 16.7 g/dL 14.0-18.0 Hematocrit 49 % 42-52 Mean Corpuscular Volume 85 fL 80-94 Mean Corpuscular Hemoglobin 29 pg 27-31 Mean Corpuscular HGB Conc 34 g/dL 31-36 Red Cell Distribution Width 14 % 10.5-15 Platelet Count 199 10^3/uL 150-450 Mean Platelet Volume 10 um3 7.4-10.4 Abs Neutrophils 5.6 10^3/uL 1.5-7.7 Abs Lymphocytes 1.2 10^3/uL 1.0-4.8 Abs Monocytes 0.4 10^3/uL 0-0.8 Abs Eosinophils 0.1 10^3/uL 0-0.6 Abs Basophils 0 10^3/uL 0-0.2 Abs Nucleated RBC 0.01 10^3/uL Granulocyte % 77.7 % 38-83 Lymphocyte % 16.1 % Low 25-47 Monocyte % 5.2 % 1-9 Eosinophil % 0.7 % 0-6 Basophil % 0.3 % 0-2 Nucleated Red Blood Cells % 0.1 Testosterone Free & Total 12/19/2015 Free Testosterone ng/dl 11.4 ng/dL 4.85-19.0 8 Testosterone 367 ng/dL 240-950 9 CBC Auto Diff 12/19/2015 White Blood Count 5.4 10^3/uL 3.5-10.8 Red Blood Count 5.30 10^6/uL 4.0-5.4 Hemoglobin 15.8 g/dL 14.0-18.0 Hematocrit 46 % 42-52 Mean Corpuscular Volume 86 fL 80-94 Mean Corpuscular Hemoglobin 30 pg 27-31 Mean Corpuscular HGB Conc 35 g/dL 31-36 Red Cell Distribution Width 14 % 10.5-15 Platelet Count 208 10^3/uL 150-450 Mean Platelet Volume 10 um3 7.4-10.4 Abs Neutrophils 3.3 10^3/uL 1.5-7.7 Abs Lymphocytes 1.5 10^3/uL 1.0-4.8 Abs Monocytes 0.5 10^3/uL 0-0.8 Abs Eosinophils 0.2 10^3/uL 0-0.6 Abs Basophils 0 10^3/uL 0-0.2 Abs Nucleated RBC 0 10^3/uL Granulocyte % 60.0 % 38-83 Lymphocyte % 27.3 % 25-47 Monocyte % 8.8 % 1-9 Eosinophil % 3.5 % 0-6 Basophil % 0.4 % 0-2 Nucleated Red Blood Cells % 0.1 FSH And LH 12/19/2015 FSH (Follicle Stim Hormone) 2.4 mIU/mL 1-20 LH (Lutenizing Hormone) 3.0 ?IU/mL 2-12 Laboratory test finding 09/06/2014 Testosterone 341.52 ng/dL 240-950 Laboratory test finding 06/21/2014 Testosterone 247.99 ng/dL 240-950 10 , 11 Comp Metabolic Panel 06/21/2014 Sodium 136 mmol/L 133-145 10 Potassium 4.2 mmol/L 3.7-5.6 10 Chloride 101 mmol/L 101-111 10 Co2 Carbon Dioxide 29 mmol/L 22-32 10 Anion Gap 6 mmol/L 2-11 10 Glucose 86 mg/dL 70-100 10 Blood Urea Nitrogen 13 mg/dL 6-24 10 Creatinine 0.91 mg/dL 0.67-1.17 10 BUN/Creatinine Ratio 14.3 8-20 10 Calcium 9.6 mg/dL 8.6-10.3 10 Total Protein 7.4 g/dL 6.4-8.9 10 Albumin 4.3 g/dL 3.2-5.2 10 Globulin 3.1 g/dL 2-4 10 Albumin/Globulin Ratio 1.4 1-3 10 Total Bilirubin 0.40 mg/dL 0.2-1.0 10 Alkaline Phosphatase 38 U/L 34-104 10 Alt 17 U/L 7-52 10 Ast 15 U/L 13-39 10 Egfr Non- 97.2 >60 10 Egfr 125.0 >60 10, 12 CBC With Manual Diff 06/21/2014 White Blood Count 6.0 10^3/uL 4.8-10.8 10 Red Blood Count 4.72 10^6/uL 4.0-5.4 10 Hemoglobin 13.8 g/dL Low 14.0-18.0 10 Hematocrit 40 % Low 42-52 10 Mean Corpuscular Volume 84 fL 80-94 10 Mean Corpuscular Hemoglobin 29 pg 27-31 10 Mean Corpuscular HGB Conc 35 g/dL 31-36 10 Red Cell Distribution Width 13 % 10.5-15 10 Platelet Count 269 10^3/uL 150-450 10 Mean Platelet Volume 9 um3 7.4-10.4 10 Abs Neutrophils 3.7 10^3/uL 1.5-7.7 10 Abs Lymphocytes 1.6 10^3/uL 1.0-4.8 10 Abs Monocytes 0.6 10^3/uL 0-0.8 10 Abs Eosinophils 0.1 10^3/uL 0-0.6 10 Abs Basophils 0 10^3/uL 0-0.2 10 Abs Nucleated RBC 0 10^3/uL 10 Neutrophil % 66 % 38-83 10 Band % 1 % 0-8 10 Lymphocytes % 20 % Low 25-47 10 Monocytes % 12 % 0-13 10 Eosinophils % 1 % 0-6 10 RBC Morphology Normal Normal 10 Laboratory test finding 06/21/2014 PSA Screening 0.764 ng/mL 0-4.000 10 , 13 LDL Cholesterol Direct 52 mg/dL 10, 14 Valproic Acid 52 g/mL 50.0-100.0 10, 15 Lipid Profile (Trig/Chol/HDL) 06/21/2014 Triglycerides 207 mg/dL 10, 16 Cholesterol 98 mg/dL 10, 17 HDL Cholesterol 24.6 mg/dL 10, 18 LDL Cholesterol 32 mg/dL 10, 19 Laboratory test finding 04/09/2014 Testosterone 258.44 ng/dL 240-950 Throat-Beta Strept 01/25/2014 Throat Beta Strep Culture (SEE NOTE) 20 Urinalysis 06/25/2013 Urine Color Yellow Urine Appearance Clear Urine Specific [place] 1.022 1.010-1.030 Urine Esterase Negative Negative Urine Nitrate Negative Negative Urine Urobilinogen Negative E.U./dL Negative Urine Protein Negative mg/dL Negative Urine pH 7.0 5-9 Urine Blood Negative Negative Urine Ketones Negative mg/dL Negative Urine Bilirubin Negative Negative Urine Glucose Negative mg/dL Negative Laboratory test finding 06/25/2013 Acetaminophen < 10 g/mL Low 10-30 21 Alcohol < 10 mg/dL Less Than 10 22 Salicylate < 4.0 Less Than 30 TSH (Thyroid Stimulating Horm) 4.47 miu/mL 0.34-5.60 Comp Metabolic Panel 06/25/2013 Sodium 138 mmol/L 133-145 Potassium 3.5 mmol/L 3.5-5.0 Chloride 106 mmol/L 101-111 Co2 Carbon Dioxide 26.0 mmol/L 22-32 Anion Gap 6.0 mmol/L 2-11 Glucose 97 mg/dL 70-100 Blood Urea Nitrogen 27 mg/dL High 6-24 Creatinine 1.00 mg/dL 0.50-1.40 BUN/Creatinine Ratio 27.0 High 8-20 Calcium 9.1 mg/dL 8.1-9.9 Total Protein 6.8 g/dL 6.2-8.1 Albumin 3.9 g/dL 3.6-5.4 Globulin 2.9 g/dL 2-4 Albumin/Globulin Ratio 1.3 1-3 Total Bilirubin 0.5 mg/dL 0.4-1.5 Alkaline Phosphatase 39 U/L 30-110 Alt 26 U/L 14-54 Ast 26 U/L 12-42 Egfr Non- 87.7 >60 Egfr 112.8 >60 23 Urine Drug SCR ED & 06/25/2013 Amphetamine Ur Screen None Detected None Detect Pain Clinic Barbiturates Urine Screen None Detected None Detect Benzodiazepine Urine Screen None Detected None Detect Urine Cannabinoids Screen None Detected None Detect Urine Cocaine Screen None Detected None Detect Urine Opiates Screen None Detected None Detect Urine Phencyclidine Screen None Detected None Detect 24 CBC Auto Diff 06/25/2013 White Blood Count 7.5 10^3/uL 4.8-10.8 Red Blood Count 5.26 10^6/uL 4.0-5.4 Hemoglobin 15.7 g/dL 14.0-18.0 Hematocrit 45 % 42-52 Mean Corpuscular Volume 86 fL 80-94 Mean Corpuscular Hemoglobin 30 pg 27-31 Mean Corpuscular HGB Conc 35 g/dL 31-36 Red Cell Distribution Width 15 % 10.5-15 Platelet Count 223 10^3/uL 150-450 Mean Platelet Volume 10 um3 7.4-10.4 Abs Neutrophils 4.3 10^3/uL 1.5-7.7 Abs Lymphocytes 2.1 10^3/uL 1.0-4.8 Abs Monocytes 0.8 10^3/uL 0-0.8 Abs Eosinophils 0.2 10^3/uL 0-0.6 Abs Basophils 0 10^3/uL 0-0.2 Abs Nucleated RBC 0 10^3/uL Granulocyte % 57.4 % 38-83 Lymphocyte % 28.2 % 25-47 Monocyte % 11.1 % High 1-9 Eosinophil % 3.0 % 0-6 Basophil % 0.3 % 0-2 Nucleated Red Blood Cells % 0 CBC Auto Diff 01/23/2013 White Blood Count 9.6 10^3/uL 4.8-10.8 Red Blood Count 5.39 10^6/uL 4.0-5.4 Hemoglobin 15.2 g/dL 14.0-18.0 Hematocrit 45 % 42-52 Mean Corpuscular Volume 83 fL 80-94 Mean Corpuscular Hemoglobin 28 pg 27-31 Mean Corpuscular HGB Conc 34 g/dL 31-36 Red Cell Distribution Width 15 % 10.5-15 Platelet Count 295 10^3/uL 150-450 Mean Platelet Volume 9 um3 7.4-10.4 Abs Neutrophils 6.4 10^3/uL 1.5-7.7 Abs Lymphocytes 1.8 10^3/uL 1.0-4.8 Abs Monocytes 1.0 10^3/uL High 0-0.8 Abs Eosinophils 0.3 10^3/uL 0-0.6 Abs Basophils 0 10^3/uL 0-0.2 Abs Nucleated RBC 0 10^3/uL Manual Differential 01/23/2013 Neutrophil % 76 % 38-83 Band % 5 % 0-8 Lymphocytes % 12 % Low 25-47 Monocytes % 7 % 0-13 RBC Morphology Normal Normal Liver Function Panel 01/23/2013 Total Protein 7.1 g/dL 6.2-8.1 Albumin 3.9 g/dL 3.6-5.4 Globulin 3.2 g/dL 2-4 Albumin/Globulin Ratio 1.2 1-3 Total Bilirubin 0.5 mg/dL 0.4-1.5 Direct Bilirubin 0.1 mg/dL 0.1-0.5 Indirect Bilirubin 0.4 mg/dL 0.3-1.0 Alkaline Phosphatase 55 U/L 30-110 Alt 50 U/L 14-54 Ast 37 U/L 12-42 Laboratory test finding 01/23/2013 Testosterone 543.9 ng/dL 175-781 Laboratory test finding 12/31/2012 Hepatitis C Antibody Nonreactive Nonreactive Liver Function Panel 12/31/2012 Total Protein 7.4 g/dL 6.2-8.1 Albumin 4.2 g/dL 3.6-5.4 Globulin 3.2 g/dL 2-4 Albumin/Globulin Ratio 1.3 1-3 Total Bilirubin 0.8 mg/dL 0.4-1.5 Direct Bilirubin 0.1 mg/dL 0.1-0.5 Indirect Bilirubin 0.7 mg/dL 0.3-1.0 Alkaline Phosphatase 59 U/L 30-110 Alt 39 U/L 14-54 Ast 35 U/L 12-42 Hepatitis B Mahesh AB 12/31/2012 Hepatitis B Surface AB Nonreactive Nonreactive Titer Hep B Surf AB Index < 0.10 25 Laboratory test finding 12/31/2012 Hepatitis B Surface Nonreactive Nonreactive Antigen Testosterone 405.4 ng/dL 175-781 Laboratory test finding 11/03/2012 PSA Screening 0.6 ng/mL 0-4.0 26 Testosterone 268.3 ng/dL 175-781 27 CBC Auto Diff 11/03/2012 White Blood Count 6.9 10^3/uL 4.8-10.8 Red Blood Count 5.29 10^6/uL 4.0-5.4 Hemoglobin 15.3 g/dL 14.0-18.0 Hematocrit 45 % 42-52 Mean Corpuscular Volume 85 fL 80-94 Mean Corpuscular Hemoglobin 29 pg 27-31 Mean Corpuscular HGB Conc 34 g/dL 31-36 Red Cell Distribution Width 14 % 10.5-15 Platelet Count 197 10^3/uL 150-450 Mean Platelet Volume 10 um3 7.4-10.4 Abs Neutrophils 4.5 10^3/uL 1.5-7.7 Abs Lymphocytes 1.6 10^3/uL 1.0-4.8 Abs Monocytes 0.7 10^3/uL 0-0.8 Abs Eosinophils 0.2 10^3/uL 0-0.6 Abs Basophils 0 10^3/uL 0-0.2 Abs Nucleated RBC 0.01 10^3/uL Granulocyte % 64.6 % 38-83 Lymphocyte % 23.1 % Low 25-47 Monocyte % 9.6 % High 1-9 Eosinophil % 2.4 % 0-6 Basophil % 0.3 % 0-2 Nucleated Red Blood Cells % 0.1 Lipid Profile (Trig/Chol/HDL) 11/03/2012 Triglycerides 97 mg/dL 40-200 Cholesterol 142 mg/dL Less than 200 HDL Cholesterol 37 mg/dL Low 40-60 28 Cholesterol/HDL Ratio 3.8 Average 1-4.44 LDL Cholesterol 85.6 mg/dL Less Than 100 29 Liver Function Panel 11/03/2012 Total Protein 7.3 g/dL 6.2-8.1 Albumin 4.3 g/dL 3.6-5.4 Globulin 3.0 g/dL 2-4 Albumin/Globulin Ratio 1.4 1-3 Total Bilirubin 0.8 mg/dL 0.4-1.5 Direct Bilirubin 0.1 mg/dL 0.1-0.5 Indirect Bilirubin 0.7 mg/dL 0.3-1.0 Alkaline Phosphatase 46 U/L 30-110 Alt 53 U/L 14-54 Ast 54 U/L High 12-42 Laboratory test finding 09/30/2012 Testosterone 293.0 ng/dL 175-781 HIV 1/2 AB Evaluation 09/01/2012 HIV 1 2 Antibody Nonreactive Nonreactive 30 CBC W/Electronic Diff 02/02/2011 White Blood Count 5.8 CUMM 4.8-10.8 Red Cell Count 4.67 CUMM 4.6-6.2 Hemoglobin 13.5 g/dL Low 14.0-18.0 Hematocrit 39 % Low 42-52 Mean Corpuscular Volume 84 um3 80-94 Mean Corpuscular Hemoglob 29 pg 27-31 Mean Corpuscular HGB Cone 34 g/dL 32-36 Redcell Distribution WDTH 14 % 10.5-15 Platelet Count 230 CUMM 150-450 Mean Platelet Volume 9.6 um3 7.4-10.4 Gran % 57.5 % 38-83 Lymph % 26.5 % 25-47 Mononuclear % 11.6 % High 1-9 Eosinophil % 4.0 % 0-6 Basophil % 0.4 % 0-2 Abs Lymphs 1.5 1.0-4.8 Abs Mononuclear 0.7 0-0.8 Absolute Neutrophil Count 3.3 1.5-7.7 Abs Eosinophils 0.2 0-0.6 Abs Basophils 0 0-0.2 Lipid Panel 02/02/2011 Triglyceride 362 mg/dL High 40-200 Cholesterol 154 mg/dL Less Than 200 31 High Density Lipoprotein 23 mg/dL Low 40-60 32 Cholesterol/HDL Ratio 6.70 AVERAGE High 1-4.97 Low Density Lipoprotein 59 mg/dL Less Than 100 33 Laboratory test finding 02/02/2011 Valproic Acid 19.8 g/mL Low 50-100 34 (Depakene) CMP Panel 02/02/2011 Sodium 138 mmol/L 135-145 Potassium 4.7 mmol/L 3.5-5.0 Chloride 105 mmol/L 101-111 Co2 (Carbon Dioxide) 27.0 mmol/L 22-32 Anion Gap 6.0 mmol/L 2-11 35 Glucose 77 mg/dL 70-100 BUN 9 mg/dL 6-24 Creatinine 0.90 mg/dL 0.50-1.40 One Over Creatinine 1.10 BUN/Creatinine Ratio 10.0 8-20 Calcium 9.7 mg/dL 8.1-9.9 Total Protein 7.5 GM/DL 6.2-8.1 Albumin 3.9 GM/DL 3.6-5.4 Globulin 3.6 GM/DL 2-4 Albumin/Globulin Ratio 1.1 1-3 Bilirubin Total 0.8 mg/dL 0.4-1.5 36 Alkaline Phosphatase 48 U/L 39-117 Alt (SGPT) 109 U/L High 17-63 Ast (Sgot) 55 U/L High 12-42 eGFR Non- 100.5 > 60 eGFR 129.2 > 60 37 CBC With Electronic Diff 07/25/2010 White Blood Count 6.7 CUMM 4.8-10.8 Red Cell Count 4.46 CUMM Low 4.6-6.2 Hemoglobin 13.1 g/dL Low 14.0-18.0 Hematocrit 37 % Low 42-52 Mean Corpuscular Volume 84 um3 80-94 Mean Corpuscular Hemoglob 29 pg 27-31 Mean Corpuscular HGB Cone 35 g/dL 32-36 Redcell Distribution WDTH 14 % 10.5-15 Platelet Count 225 CUMM 150-450 Mean Platelet Volume 7.8 um3 7.4-10.4 Gran % 60.6 % 38-83 Lymph % 23.2 % Low 25-47 Mononuclear % 12.7 % High 1-9 Eosinophil % 3.2 % 0-6 Basophil % 0.3 % 0-2 Abs Lymphs 1.5 1.0-4.8 Abs Mononuclear 0.8 0-0.8 Absolute Neutrophil Count 4.0 1.5-7.7 Abs Eosinophils 0.2 0-0.6 Abs Basophils 0 0-0.2 Comp Metabolic Panel 07/25/2010 Sodium 135 mmol/L 135-145 Potassium 3.8 mmol/L 3.5-5.0 Chloride 104 mmol/L 101-111 Co2 (Carbon Dioxide) 27.0 mmol/L 22-32 Anion Gap 4.0 mmol/L 2-11 38 Glucose 93 mg/dL 70-100 39 BUN 9 mg/dL 6-24 Creatinine 0.90 mg/dL 0.50-1.40 One Over Creatinine 1.10 BUN/Creatinine Ratio 10.0 8-20 Calcium 9.5 mg/dL 8.1-9.9 Total Protein 7.1 GM/DL 6.2-8.1 Albumin 3.8 GM/DL 3.6-5.4 Globulin 3.3 GM/DL 2-4 Albumin/Globulin Ratio 1.2 1-3 Bilirubin Total 0.7 mg/dL 0.4-1.5 40 Alkaline Phosphatase 48 U/L 39-117 Alt (SGPT) 63 U/L 17-63 Ast (Sgot) 32 U/L 12-42 eGFR Non- 107.6 > 60 eGFR 130.2 > 60 41 Vitamin D, 25 Hydroxy 07/25/2010 25-Hydroxy Vitamin D2 <4.0 ng/mL () 25-Hydroxy Vitamin D3 36 ng/mL () 25-Hydroxy Vitamin D Total 36 ng/mL () 42 Iron & Iron Binding Capacity 07/25/2010 Iron Total 58 g/dL 45-182 Unsaturated Iron Binding 260 g/dL Total Iron Binding Capacity 318 g/dL 250-450 % Iron Saturation 18 % 15-55 Laboratory test finding 04/25/2010 Valproic Acid (Depakene) 53.3 g/mL 50-100 43 Vitamin D, 25 Hydroxy 09/23/2009 25-Hydroxy Vitamin D2 <4.0 ng/mL () 44 25-Hydroxy Vitamin D3 22 ng/mL () 44 25-Hydroxy Vitamin D Total 22 ng/mL () 44, 45 Vitamin B12 And Folate Serum 09/23/2009 Vitamin B12 534 pg/mL 180-914 44 Folic Acid 10.2 NG/ML 2-16 44 Laboratory test finding 09/23/2009 Glucose 81 mg/dL 70-100 44, 46 Valproic Acid (Depakene) 98.2 g/mL 50-100 44, 47 Lipid Profile (Trig/Chol/HDL) 09/23/2009 Triglyceride 286 mg/dL High 40- 200 44 Cholesterol 185 mg/dL Less Than 200 44, 48 High Density Lipoprotein 20 mg/dL Low 40-60 44, 49 Cholesterol/HDL Ratio 9.25 AVERAGE High 1-4.97 44 Low Density Lipoprotein 108 mg/dL High Less Than 100 44, 50 Laboratory test finding 09/23/2009 Syphilis IgG NON-REACTIVE Nonreactive 44, 51 Laboratory test finding 05/10/2009 Glucose 81 mg/dL 70-100 52 Lipid Profile 05/10/2009 Triglyceride 203 mg/dL High 40-200 (Trig/Chol/HDL) Cholesterol 182 mg/dL Less Than 200 53 High Density Lipoprotein 25 mg/dL Low 40-60 54 Cholesterol/HDL Ratio 7.28 AVERAGE High 1-4.97 Low Density Lipoprotein 116 mg/dL High Less Than 100 55 Liver Function Panel 05/10/2009 Total Protein 7.1 GM/DL 6.2-8.1 Albumin 3.8 GM/DL 3.6-5.4 Globulin 3.3 GM/DL 2-4 Albumin/Globulin Ratio 1.2 1-3 Bilirubin Total 0.6 mg/dL 0.4-1.5 56 Bilirubin Direct 0.0 mg/dL Low 0.1-0.5 Indirect Bilirubin (SEE NOTE) mg/dL 0.1-0.75 57 Alkaline Phosphatase 40 U/L 39-117 Alt (SGPT) 53 U/L 17-63 Ast (Sgot) 33 U/L 12-42 Laboratory test 05/10/2009 Valproic Acid 98.0 g/mL 50-100 58 finding (Depakene) DS3 09/17/2008 Amphetamines Urine NONE DETECTED None Detect Screen Barbituates Urine Screen NONE DETECTED None Detect Benzodiazepine Ur Screen NONE DETECTED None Detect Cannabinoid Urine Screen NONE DETECTED None Detect Cocaine Metabolites Urine NONE DETECTED None Detect Opiates Urine Screen NONE DETECTED None Detect PCP Urine Screen NONE DETECTED None Detect 59 CBC With Manual Diff Stat 09/17/2008 White Blood Count 8.9 CUMM 4.8-10.8 Red Cell Count 5.24 CUMM 4.6-6.2 Hemoglobin 15.3 g/dL 14.0-18.0 Hematocrit 43 % 42-52 Mean Corpuscular Volume 82 um3 80-94 Mean Corpuscular Hemoglob 29 pg 27-31 Mean Corpuscular HGB Cone 35 g/dL 32-36 Redcell Distribution WDTH 13 % 10.5-15 Platelet Count 306 CUMM 150-450 Mean Platelet Volume 8.5 um3 7.4-10.4 Polysegmented Neutrophil 76 % 38-83 Lymphocyte 13 % Low 25-47 Monocyte 11 % 0-13 Absolute Neutrophil Count 6.7 RBC Morphology NORMAL Laboratory test finding 09/17/2008 Alcohol Stat < 10.0 mg/dL None Detected 60 TSH 2.16 MIU/ML 0.34-5.60 Basic Metabolic Panel Stat 09/17/2008 Sodium 136 mmol/L 135-145 Potassium 3.9 mmol/L 3.5-5.0 Chloride 107 mmol/L 101-111 Co2 (Carbon Dioxide) 24.0 mmol/L 22-32 Anion Gap 5.0 mmol/L 2-11 61 Glucose 99 mg/dL 70-100 62 BUN 10 mg/dL 6-24 Creatinine 0.90 mg/dL 0.50-1.40 One Over Creatinine 1.10 BUN/Creatinine Ratio 11.1 8-20 Calcium 9.6 mg/dL 8.1-9.9 63 1 Because ethnic data is not always readily available, this report includes an eGFR for both -Americans and non- Americans. The National Kidney Disease Education Program (NKDEP) does not endorse the use of the MDRD equation for patients that are not between the ages of 18 and 70, are , have extremes of body size, muscle mass, or nutritional status, or are non- or non-. According to the National Kidney Foundation, irrespective of diagnosis, the stage of the disease is based on the level of kidney function: Stage Description GFR(mL/min/1.73 m(2)) 1 Kidney damage with normal or decreased GFR 90 2 Kidney damage with mild decrease in GFR 60-89 3 Moderate decrease in GFR 30-59 4 Severe decrease in GFR 15-29 5 Kidney failure <15 (or dialysis) 2 Specimen hemolyzed, spoke to Lucie for recollect. 3 Specimen hemolyzed, spoke to Lucie for recollect. 4 Therapeutic concentration: <50 ug/mL Toxic concentration: >120 ug/mL 5 The urine specimen was tested at the listed cutoffs: Drug class test level (ng/mL) Amphetamines 500 Barbiturates 200 Benzodiazepine metabolites 200 Cocaine metabolites 150 Cannabinoids 50 Opiates 300 Pcp 25 Specimen was received without chain of custody. Results should be used for medical purposes only. 6 Because ethnic data is not always readily available, this report includes an eGFR for both -Americans and non- Americans. The National Kidney Disease Education Program (NKDEP) does not endorse the use of the MDRD equation for patients that are not between the ages of 18 and 70, are , have extremes of body size, muscle mass, or nutritional status, or are non- or non-. According to the National Kidney Foundation, irrespective of diagnosis, the stage of the disease is based on the level of kidney function: Stage Description GFR(mL/min/1.73 m(2)) 1 Kidney damage with normal or decreased GFR 90 2 Kidney damage with mild decrease in GFR 60-89 3 Moderate decrease in GFR 30-59 4 Severe decrease in GFR 15-29 5 Kidney failure <15 (or dialysis) 7 Therapeutic concentration: <50 ug/mL Toxic concentration: >120 ug/mL 8 ADDITIONAL INFORMATION Testing performed by [facility]. 9 ADDITIONAL INFORMATION Testing performed by Liquid Chromatography-Tandem Mass Spectrometry (LC-MS/MS). Test Performed by: [address] [address] Human Resources Operations Specialist: Trino Eugene II, M.D., Ph.D. 10 FASTING 10 HOUR 11 FASTING 10 HOUR 12 Because ethnic data is not always readily available, this report includes an eGFR for both -Americans and non- Americans. The National Kidney Disease Education Program (NKDEP) does not endorse the use of the MDRD equation for patients that are not between the ages of 18 and 70, are , have extremes of body size, muscle mass, or nutritional status, or are non- or non-. According to the National Kidney Foundation, irrespective of diagnosis, the stage of the disease is based on the level of kidney function: Stage Description GFR(mL/min/1.73 m(2)) 1 Kidney damage with normal or decreased GFR 90 2 Kidney damage with mild decrease in GFR 60-89 3 Moderate decrease in GFR 30-59 4 Severe decrease in GFR 15-29 5 Kidney failure <15 (or dialysis) 13 Serum levels of PSA measured using the [employer] [place] DXI Hybritech immunoassay should not be interpreted as absolute evidence of the presence or absence of disease. The PSA value should be used in conjunction with other pertinent clinical diagnostic procedures. The values obtained with different assay methods or kits cannot be used interchangeably. 14 Desirable <100 Near Optimal 100-129 Borderline high 130-159 High 160-189 Very High >189 15 FASTING 10 HOUR 16 Desirable <150 Borderline high 150-199 High 200-499 Very High >500 17 Desirable <200 Borderline high 200-239 High >239 18 Low <40 Desirable: 40-60 High: >60 19 Desirable <100 Near Optimal 100-129 Borderline high 130-159 High 160-189 Very High >189 20 RUN DATE: 01/28/14 [facility] LAB LIVE PAGE 1 RUN TIME: [address] [place] [address] Specimen Inquiry Name: OSITO AYALA : [address]: Ani Knutson MD Acct: [id number] Unit: [id number] AGE: 33 Location: [facility] Re01/25/14 SEX: M Status: DEP ER SPEC: [id number] MELANIE: 01/25/[address] [facility] [address]: Ani Knutson MD REQ: [id number] RECD: 01/26/14 STATUS: KULDEEP MEYER DR: Rosas Osborn MD _ SOURCE: THROAT SPDESC: ORDERED: Throat Beta Str Procedure Result Verified Site Throat Beta Strep Culture Final 01/28/14- 0858 ML Negative For Group A Beta Streptococcus END OF REPORT * ML=Testing performed at Main Lab DEPARTMENT OF PATHOLOGY, [address] [place] [address] John Fowler M.D. Director [facility] # [id number] 21 Toxic levels: greater than 150 mcg/ml @ 4hr post ingest Greater than 50 mcg/ml @ 12hr post ingest The detection limit for acetaminophen is 10.0 mcg/ml . Values less than 10.0 mcg/ml cannot be accurately measured. 22 The detection limit for Ethanol is 10.0 mg/dl . Values less than 10.0 mg/dl cannot be accurately measured. 23 Because ethnic data is not always readily available, this report includes an eGFR for both -Americans and non- Americans. The National Kidney Disease Education Program (NKDEP) does not endorse the use of the MDRD equation for patients that are not between the ages of 18 and 70, are , have extremes of body size, muscle mass, or nutritional status, or are non- or non-. According to the National Kidney Foundation, irrespective of diagnosis, the stage of the disease is based on the level of kidney function: Stage Description GFR(mL/min/1.73 m(2)) 1 Kidney damage with normal or decreased GFR 90 2 Kidney damage with mild decrease in GFR 60-89 3 Moderate decrease in GFR 30-59 4 Severe decrease in GFR 15-29 5 Kidney failure <15 (or dialysis) 24 The urine specimen was tested at the listed cutoffs: Drug class test level (ng/ml) Amphetamines 300 Barbituates 200 Benzodiazepine metabolites 200 Cocaine metabolites 300 Cannabinoids 25 Opiates 200 Pcp 25 This is a screening procedure. Positive results are not confirmed. Specimen was received without chain of custody. Results should be used for medical purposes only. 25 The World Health Organization (WHO) Hepatitis B Immunoglobulin 1st International Reference Preparation (1976): The accepted criteria for immunity to HBV is anti-HBs activity greater than or equal to 10 mIU/mL. An Index Value of 1.00 is equivalent to 10 mIU/mL. Samples with an Index Value of 1.00 or greater are considered reactive (protective) in accordance with the CDC guidelines. 26 Serum levels of PSA measured using the [employer] DXI Hybritech immunoassay should not be interpreted as absolute evidence of the presence or absence of disease. The PSA value should be used in conjunction with other pertinent clinical diagnostic procedures. A PSA value in the range of 0.1 to 0.6 ng/ml is indeterminate if being used as an indicator of recurrent or residual disease. The values obtained with different assay methods or kits cannot be used interchangeably. 27 PT IS FASTING 28 HDL Interpretation: Undesirable: High Risk: Less than 40 MG/DL Desirable: Low Risk: Greater than 60 MG/DL 29 LDL Interpretation: Low Risk Optimal Level: LDL Less than 100 MG/DL Near or Above Optimal: LDL 100-129 MG/DL Borderline High Risk: LDL 130-159 MG/DL High Risk: LDL 160-189 MG/DL Very High Risk: LDL Greater than 189 MG/DL 30 It is recognized that currently available assays for the detection of antibodies to HIV-1 and/or HIV-2 may not detect all infected individuals. HIV antibodies may be undetectable in some stages of the infection and in some clinical conditions. The performance of this assay has not been established for populations of infants or children. Assayed by Chemiluminescence Microparticle Immunoassay on the Siemens Advia Centaur CP. Values obtained with different methods or kits cannot be used interchangeably.The diagnostic specificity of the ADVIA Centaur 1/O/2 Enhanced assay in the low risk population was 99.90% (6052/6058) with a 95% confidence interval of 99.78 to 99.96%. 31 CHOLESTEROL INTERPRETATION: Desirable: Less than 200 MG/DL Borderline-High Risk: 200-239 MG/DL High-Risk: 240 MG/DL and over 32 HDL INTERPRETATION: Undesirable: High Risk: Less than 40 MG/DL Desirable: Low Risk: Greater than 60 MG/DL 33 LDL INTERPRETATION: Low Risk Optimal Level: LDL Less than 100 MG/DL Near or Above Optimal: LDL 100-129 MG/DL Borderline High Risk: LDL 130-159 MG/DL High Risk: LDL 160-189 MG/DL Very High Risk: LDL Greater than 189 MG/DL 34 The detection limit for VALPROIC ACID is 10.0 mcg/ml . Values less than 10.0 mcg/ml cannot be accurately measured. . 35 Anion gap measurement may be of limited value in the presence of any alkalosis, especially in a combined acid base disorder. . 36 A metabolite of Naproxen, O-desmethylnaproxen, has been shown to interfere with the Jendrassik-Birney method for measuring total bilirubin. Samples from patients who have taken Naproxen have shown spurious elevation in total bilirubin levels. 37 Because ethnic data is not always readily available, this report includes an eGFR for both -Americans and non- Americans. The National Kidney Disease Education Program (NKDEP) does not endorse the use of the MDRD equation for patients that are not between the ages of 18 and 70, are , have extremes of body size, muscle mass, or nutritional status, or are non- or non-. According to the National Kidney Foundation, irrespective of diagnosis, the stage of the disease is based on the level of kidney function: Stage Description GFR(mL/min/1.73 m(2)) 1 Kidney damage with normal or decreased GFR 90 2 Kidney damage with mild decrease in GFR 60-89 3 Moderate decrease in GFR 30-59 4 Severe decrease in GFR 15-29 5 Kidney failure <15 (or dialysis) 38 Anion gap measurement may be of limited value in the presence of any alkalosis, especially in a combined acid base disorder. . 39 Note change in reference range as of 05/06/08. The change was based on recommendations from the [place] [employer]. 40 A metabolite of Naproxen, O-desmethylnaproxen, has been shown to interfere with the Jendrassik-Francine method for measuring total bilirubin. Samples from patients who have taken Naproxen have shown spurious elevation in total bilirubin levels. 41 Because ethnic data is not always readily available, this report includes an eGFR for both -Americans and non- Americans. The National Kidney Disease Education Program (NKDEP) does not endorse the use of the MDRD equation for patients that are not between the ages of 18 and 70, are , have extremes of body size, muscle mass, or nutritional status, or are non- or non-. According to the National Kidney Foundation, irrespective of diagnosis, the stage of the disease is based on the level of kidney function: Stage Description GFR(mL/min/1.73 m(2)) 1 Kidney damage with normal or decreased GFR 90 2 Kidney damage with mild decrease in GFR 60-89 3 Moderate decrease in GFR 30-59 4 Severe decrease in GFR 15-29 5 Kidney failure <15 (or dialysis) 42 -- REFERENCE VALUE -- 25-HYDROXY D TOTAL (D2+D3) Optimum levels in the normal population are 25-80 Test Performed by: [facility] Dpt of Lab Med and Pathology [address] [place] [address] Human Resources Operations Specialist: Waqar Arredondo III, M.D. 43 The detection limit for VALPROIC ACID is 10.0 mcg/ml . Values less than 10.0 mcg/ml cannot be accurately measured. . 44 FASTING 45 Interpretation: 10-24 (mild to moderate deficiency) -- REFERENCE VALUE -- 25-HYDROXY D TOTAL (D2+D3) Optimum levels in the normal population are 25-80 Test Performed by: [facility] D[facility] of Lab Med and Pathology [address] [place] [address] Human Resources Operations Specialist: Waqar Arredondo III, M.D. 46 Note change in reference range as of 05/06/08. The change was based on recommendations from the [place] [employer]. 47 The detection limit for VALPROIC ACID is 10.0 mcg/ml . Values less than 10.0 mcg/ml cannot be accurately measured. . 48 CHOLESTEROL INTERPRETATION: Desirable: Less than 200 MG/DL Borderline-High Risk: 200-239 MG/DL High-Risk: 240 MG/DL and over 49 HDL INTERPRETATION: Undesirable: High Risk: Less than 40 MG/DL Desirable: Low Risk: Greater than 60 MG/DL 50 LDL INTERPRETATION: Low Risk Optimal Level: LDL Less than 100 MG/DL Near or Above Optimal: LDL 100-129 MG/DL Borderline High Risk: LDL 130-159 MG/DL High Risk: LDL 160-189 MG/DL Very High Risk: LDL Greater than 189 MG/DL 51 Warning: A positive result is not useful for establishing a diagnosis of syphilis. In most situations, such a result may reflect a prior treated infection; a negative result can exclude a diagnosis of syphilis except for incubating or early primary disease. 52 Note change in reference range as of 05/06/08. The change was based on recommendations from the [place] [employer]. 53 CHOLESTEROL INTERPRETATION: Desirable: Less than 200 MG/DL Borderline-High Risk: 200-239 MG/DL High-Risk: 240 MG/DL and over 54 HDL INTERPRETATION: Undesirable: High Risk: Less than 40 MG/DL Desirable: Low Risk: Greater than 60 MG/DL 55 LDL INTERPRETATION: Low Risk Optimal Level: LDL Less than 100 MG/DL Near or Above Optimal: LDL 100-129 MG/DL Borderline High Risk: LDL 130-159 MG/DL High Risk: LDL 160-189 MG/DL Very High Risk: LDL Greater than 189 MG/DL 56 A metabolite of Naproxen, O-desmethylnaproxen, has been shown to interfere with the Jendralfredik-Francine method for measuring total bilirubin. Samples from patients who have taken Naproxen have shown spurious elevation in total bilirubin levels. 57 UNABLE TO CALCULATE IND.BILI D.BILI IS <0.1 58 The detection limit for VALPROIC ACID is 10.0 mcg/ml . Values less than 10.0 mcg/ml cannot be accurately measured. . 59 THE URINE SPECIMEN WAS TESTED AT THE LISTED CUTOFFS: DRUG CLASS TEST LEVEL (NG/ML) AMPHETAMINES 300 BARBITUATES 200 BENZODIAZEPINE METABOLITES 200 COCAINE METABOLITES 300 CANNABINOIDS 25 OPIATES 200 PCP 25 THIS IS A SCREENING PROCEDURE. POSITIVE RESULTS ARE NOT CONFIRMED. SPECIMEN WAS RECEIVED WITHOUT CHAIN OF CUSTODY. RESULTS SHOULD BE USED FOR MEDICAL PURPOSES ONLY. . 60 The detection limit for ETHANOL is 10.0 mg/dl . Values less than 10.0 mg/dl cannot be accurately measured. . 61 Anion gap measurement may be of limited value in the presence of any alkalosis, especially in a combined acid base disorder. . 62 Note change in reference range as of 05/06/08. The change was based on recommendations from the [place] [employer]. 63 Please note change in reference range effective 08 . Procedures Date CPT Code Description Status 07/01/2013 53141 ECHO Transthorasic Realtime 2D W Doppler & Color Flow Completed Hosp Encounters Type Date Location Provider CPT E/M Dx Office Visit 02/24/2018 10:10a [facility] Rosas Osborn, [address] L21.9 - [place] Praful Ortega,FACP Office Visit 11/20/2017 3:40p [facility] Dom Bubba, [facility] [address] E66.[address] Z13.220 Office Visit 01/23/2017 3:00p [facility] Rosas Osborn, [address]97[address] J34.2 - [place] Praful Ortega,FACP I10 D50.8 Office Visit 12/19/2015 8:50a [facility] Rosas Osborn, 18309 E29.1 - [place] Praful Ortega,FACP F31.81 Office Visit 10/10/2015 1:00p [facility] Crow Andres, 16201 M25.561 - Ephraim Ortega Office Visit 06/21/2014 2:00p [facility] Rosas Osborn, 77197 257.2 - Ephraim Ortega,FACP 296.89 272.0 V76.44 Office Visit 06/07/2014 4:00p [facility] Rosas Osborn, 53805 257.2 - Ephraim Ortega,FACP 783.1 v04.81 Office Visit 04/22/2014 4:00p [facility] Rosas Osborn, 33743 257.2 - Ephraim Ortega,FACP Office Visit 03/17/2014 2:30p [facility] Jennifer Mahoney, [address] 842.13 [facility] 06/12/2013 3:00p [facility] Yashira Bettencourt, N.P. 7[address] 296.89 - [place] 257.2 v04.81 Office Visit 12/31/2012 1:00p [facility] Rosas Osborn, 23295 257.2 - Ephraim Ortega,FACP 573.3 Office Visit 11/05/2012 9:10a [facility] Rosas Osborn, 20591 257.2 - Ephraim Ortega,FACP 573.3 Office Visit 10/07/2012 9:50a [facility] - Nurse Visit [place] [address] 257.2 [place] Office Visit 10/02/2012 2:40p [facility] - Rosas Osborn, 56128 257.2 Ephraim Ortega,FACP 472.0 Office Visit 09/01/2012 3:00p [facility] Rosas Osborn, 70727 257.2 - Ephraim Ortega,FACP V58.83 v04.81 Office Visit 10/03/2011 1:00p [facility] Inocencia Booth, 96488 V70.8 [facility] [place] 296.89 280.9 268.9 477.9 272.1 Office Visit 09/01/2010 1:40p DO Not Use [facility], 23801 680.3 [place] M.Saul.,FACP Office Visit 07/28/2010 10:40a DO Not Use [facility], 99307 333.94 [facility] M.D.,FACP 268.9 280.9 Office Visit 03/30/2010 9:40a DO Not Use [facility], 23995 786.59 [facility] M.Saul.,FACP 327.27 296.89 607.84 Office Visit 01/23/2010 9:40a DO Not Use [facility], 70667 812.40 [facility] M.Saul.,FACP 268.9 Office Visit 09/20/2009 9:40a DO Not Use [facility], 84845 780.93 [facility] M.D.,FACP 278.00 Office Visit 08/03/2009 11:40a DO Not Use [facility], 69395 278.00 [place] M.D.,FACP 296.62 Office Visit 05/04/2009 3:00p DO Not Use [facility], 94353 296.62 [facility] M.D.,FACP 812.21 278.00 Office Visit 04/12/2009 11:20a DO Not Use [facility], 01586 723.1 [place] M.Saul.,FACP 296.89 Office Visit 07/14/2008 3:00p DO Not Use [facility], 64417 300.00 [place] M.D.,FACP 297.8 Office Visit 03/30/2008 2:00p DO Not Use [facility] [address] 847.0 [facility] 300.00 Plan of Care Future Appointment(s):08/01/2018 10:20 am - Rosas Osborn M.D.,FACP at [facility] - [address]05/21/2018 - Crow Andres M.D.M54.5 Low back painNew Therapy:Physical Therapy
--- NOTE | 2018-06-16 15:13 | ED ---
Medical Screening - HPI Summary HPI Summary: Pt has been taking testosterone x 3 weeks and wants advice on how to wean down as he doesn't want to take this any longer. Admits to mood swings, mild acne and has had chest pain but none this week and not now. BP was elevated in triage and he admits he's anxious to be here. Denies REEDER, change in vision, CP, SOB, fatigue, sweating, nausea, arm pain. Follows w/ both Rosas Cardenas and another PCP at [facility] who he does not recall. Has not contacted either of them - was afraid to contact Dr. Cardenas as he was dx'd w/ low testosterone in the past and they had a disagreement about his treatment plan. - History of Current Complaint Chief Complaint: EDSubstanceAbuse Stated Complaint: SUBSTANCE WITHDRAWL Time Seen by Provider: 06/16/18 14:20 PMH/Surg Hx/FS Hx/Imm Hx Previously Healthy: Yes Endocrine/Hematology History: Reports: Other Endocrine/Hematological Disorders - on testosterone for recreational use Denies: Hx Diabetes, Hx Thyroid Disease Cardiovascular History: Denies: Hx Hypertension Respiratory History: Denies: Hx Asthma, Hx Chronic Obstructive Pulmonary Disease (COPD) GI History: Denies: Hx Ulcer Musculoskeletal History: Reports: Hx Orthopedic Injury - R Humerus fracture Sensory History: Reports: Hx Contacts or Glasses Denies: Hx Cataracts, Hx Deafness, Hx Hearing Aid Opthamlomology History: Reports: Hx Contacts or Glasses Denies: Hx Cataracts Psychiatric History: Reports: Hx Schizophrenia - schizoaffective D/O, Hx Bipolar Disorder, Hx of Violent Episodes Against Others Comment Only: Hx Eating Disorder - uncertain - Surgical History Surgery Procedure, Year, and Place: Right Fifth Finger Tendon Repair, ~2002, [place] Hx Anesthesia Reactions: No Infectious Disease History: No Infectious Disease History: Denies: Hx Clostridium Difficile, Hx Hepatitis, Hx Human Immunodeficiency Virus (HIV), Hx of Known/Suspected MRSA, Hx Shingles, Hx Tuberculosis, Hx Known/ Suspected VRE, Hx Known/Suspected VRSA, History Other Infectious Disease, Traveled Outside the [place] in Last 30 Days - Family History Known Family History: Positive: None Negative: Blood Disorder - Social History Alcohol Use: Occasionally Alcohol Amount: "once every couple of weeks" Substance Use Type: Reports: Marijuana Hx Tobacco Use: No Smoking Status (MU): Never Smoked Tobacco Review of Systems Constitutional: Negative Negative: Fatigue Cardiovascular: Negative Negative: Palpitations, Chest Pain Respiratory: Negative Negative: Shortness Of Breath Positive: no symptoms reported Musculoskeletal: Negative Skin: Negative Neurological: Negative Positive: Anxious All Other Systems Reviewed And Are Negative: Yes Physical Exam Triage Information Reviewed: Yes Vital Signs On Initial Exam: Initial Vitals Temp Pulse Resp BP Pulse Ox 98.5 F 72 20 165/102 99 06/16/18 13:30 06/16/18 13:30 06/16/18 13:30 06/16/18 13:30 06/16/18 13:30 Vital Signs Reviewed: Yes Appearance: Positive: Well-Appearing, No Pain Distress, Well-Nourished Skin: Positive: Warm, Skin Color Reflects Adequate Perfusion, Dry - no acne Head/Face: Positive: Normal Head/Face Inspection Eyes: Positive: Normal, EOMI, Conjunctiva Clear ENT: Positive: Normal ENT inspection, Hearing grossly normal, Pharynx normal - mucosa moist Respiratory/Lung Sounds: Positive: Clear to Auscultation, Breath Sounds Present Cardiovascular: Positive: Normal, RRR, S1, S2 Musculoskeletal: Positive: Normal, Strength/ROM Intact Neurological: Positive: Normal, Sensory/Motor Intact, Alert, Oriented to Person Place, Time, CN Intact II-III Psychiatric: Positive: Normal Diagnostics - Vital Signs Vital Signs Temp Pulse Resp BP Pulse Ox 06/16/18 13:30 98.5 F 72 20 165/102 99 - Laboratory Lab Statement: Any lab studies that have been ordered have been reviewed, and results considered in the medical decision making process. Course/Dx - Diagnoses Provider Diagnoses: Long-term current use of testosterone cypionate, Hypertension Discharge - Sign-Out/Discharge Documenting (check all that apply): Patient Departure - Discharge Plan Condition: Stable Disposition: HOME Referrals: Rosas Osborn MD [Primary Care Provider] - [facility] [Outside] Additional Instructions: It is important that you follow-up with your PCP this week to discuss tapering down your testosterone. Call today to schedule an appointment. If you cannot get an appointment this week with your PCP, Call [facility] for a quick follow-up appointment and then link back into your PCP. *If in the meantime you develop chest pain, shortness of breath, jaw pain, fatigue, sweating, arm pain, headache, change in vision, return to the ED - Billing Disposition and Condition Condition: STABLE Disposition: Home
[2018-06-16 15:36] VITALS: BP 143/97
== END 2018-06-16 15:35 | disposition home or self-care (01) ==
LOC: ED 13:23
DX: I10 Essential (primary) hypertension (principal); Z79.890 Hormone replacement therapy
CPT/HCPCS: 99281

== ENCOUNTER 2018-10-24 19:29 | Emergency (ER) | payer MEDICARE, MEDICAID ==
[2018-10-24 20:13] LABS: ABS Basophils 0 10^3/ul (0-0.2); ABS Eosinophils 0.2 10^3/ul (0-0.6); ABS Monocytes 0.6 10^3/ul (0-0.8); ABS Neutrophils 5.7 10^3/ul (1.5-7.7); ABS Nucleated RBC 0 10^3/ul; Eosinophil % 2.6 %; Hematocrit 43 % (42-52); Hemoglobin 15.1 g/dl (14.0-18.0); Lymphocyte % 23.1 %; Mean Corpuscular HGB Conc 35 g/dl (31-36); Mean Corpuscular Hemoglobin 30 pg (27-31); Mean Corpuscular Volume 85 fL (80-94); Mean Platelet Volume 9.7 fL (7.4-10.4); Nucleated Red Blood Cells % 0.3; Platelet Count 227 10^3/ul (150-450); Red Cell Distribution Width 14 % (10.5-15); White Blood Count 8.6 10^3/ul (3.5-10.8)
[2018-10-24 20:25] LABS: Urine Appearance Clear; Urine Bilirubin Negative (Negative); Urine Blood Negative (Negative); Urine Color Straw; Urine Glucose Negative (Negative); Urine Ketones Negative (Negative); Urine Nitrite Negative (Negative); Urine Protein Negative (Negative); Urine Specific Gravity 1.013 (1.010-1.030); Urine Urobilinogen Negative (Negative)
[2018-10-24 20:34] LABS: ALT 22 U/L (7-52); AST 22 U/L (13-39); Albumin 4.5 g/dL (3.2-5.2); Albumin/Globulin Ratio 1.7 (1-3); Alkaline Phosphatase 34 U/L (34-104); Anion Gap 5 mmol/L (2-11); Blood Urea Nitrogen 23 mg/dL (6-24); CO2 Carbon Dioxide 28 mmol/L (22-32); Calcium 9.7 mg/dL (8.6-10.3); Chloride 105 mmol/L (101-111); Globulin 2.7 g/dL (2-4); Glucose 87 mg/dL (70-100); Potassium 4.3 mmol/L (3.5-5.0); Sodium 138 mmol/L (135-145); Total Protein 7.2 g/dL (6.4-8.9)
[2018-10-24 20:35] LABS: Acetaminophen < 15 mcg/mL; Alcohol < 10 mg/dL (<10); Salicylate < 2.50 mg/dL (<30)
[2018-10-24 20:45] LABS: Barbiturates Urine Screen None Detected (None Detect); Benzodiazepine Urine Screen None Detected (None Detect); Urine Cannabinoids Screen None Detected (None Detect)
[2018-10-24 20:49] LABS: TSH (Thyroid Stimulating Horm) 2.12 mcIU/mL (0.34-5.60)
[2018-10-24 21:04] LABS: BUN/Creatinine Ratio 17.6 (8-20); EGFR African American 74.9 (>60); EGFR Non-African American 61.9 (>60)
--- NOTE | 2018-10-24 21:23 | ED ---
Psychiatric Complaint - HPI Summary HPI Summary: Patient is a 38 y/o M presenting to ED with complaints of possible manic episode , depression. He states that he had a manic episode two days ago and is concerned that another episode is starting. He also notes that he feels unwelcomed at home by his parents and his neighbors (patient lives with his parents). He states, "I just don't feel good mentally." He reports that he had SI with a plan a day ago, no SI, no HI at present. PMHx of bipolar disorder, schizoaffective disorder. Patient is on depakote, claims that he did not take his medication during one of these past days. He also notes that he gets abilify shots monthly, last dosage was 10/16/18. No PMHx, no PSHx, no cigarette, drugs, alcohol usage. FMHx of HTN and CA. Per triage, "States he has been hearing voices again, denies that the voices are telling him to hurt himself or others. States he has been having thoughts of hurting himself when he had his manic episode a couple of nights ago." On triage, associated severity is rated 5 /10, nothing is noted to aggravate/alleviate Sx. Home medications and allergies are reviewed. - History Of Current Complaint Chief Complaint: EDMentalHealth Time Seen by Provider: 10/24/18 19:42 Hx Obtained From: Patient Onset/Duration: Still Present Timing: Constant Severity Currently: Moderate - 5/10 Character: Manic, Depressed Aggravating Factor(s): Nothing Alleviating Factor(s): Nothing Has Suicidal: Denies: Thoughts - at present Has Homicidal: Denies: Thoughts - at present - Allergies/Home Medications Allergies/Adverse Reactions: Allergies Allergy/AdvReac Type Severity Reaction Status Date / Time ziprasidone [From New] Allergy Unknown Verified 07/30/18 17:48 Reaction Details PMH/Surg Hx/FS Hx/Imm Hx Endocrine/Hematology History: Denies: Hx Diabetes, Hx Thyroid Disease Cardiovascular History: Denies: Hx Hypertension Respiratory History: Denies: Hx Asthma, Hx Chronic Obstructive Pulmonary Disease (COPD) GI History: Denies: Hx Ulcer Musculoskeletal History: Reports: Hx Orthopedic Injury - R Humerus fracture Sensory History: Reports: Hx Contacts or Glasses Denies: Hx Cataracts, Hx Deafness, Hx Hearing Aid Opthamlomology History: Reports: Hx Contacts or Glasses Denies: Hx Cataracts Psychiatric History: Reports: Hx Schizophrenia - schizoaffective D/O, Hx Bipolar Disorder, Hx of Violent Episodes Against Others Comment Only: Hx Eating Disorder - uncertain - Surgical History Surgery Procedure, Year, and Place: Right Fifth Finger Tendon Repair, ~2002, [place] Hx Anesthesia Reactions: No Infectious Disease History: No Infectious Disease History: Denies: Hx Clostridium Difficile, Hx Hepatitis, Hx Human Immunodeficiency Virus (HIV), Hx of Known/Suspected MRSA, Hx Shingles, Hx Tuberculosis, Hx Known/ Suspected VRE, Hx Known/Suspected VRSA, History Other Infectious Disease, Traveled Outside the US in Last 30 Days - Family History Known Family History: Positive: Cardiac Disease, Hypertension Negative: Diabetes, Blood Disorder - Social History Alcohol Use: Occasionally Alcohol Amount: "once every ccouple of weeks" Substance Use Type: Reports: None Hx Tobacco Use: No Smoking Status (MU): Never Smoked Tobacco Type: eCigarettes Review of Systems Negative: Fever - on vitals, temp is 98.2 F Psychological: Other - possible manic episode, no SI, no HI Positive: Depressed All Other Systems Reviewed And Are Negative: Yes Physical Exam - Summary Physical Exam Summary: VITAL SIGNS: Reviewed. GENERAL: Patient is a well-developed and nourished male who is lying comfortable in the stretcher. Patient is not in any acute respiratory distress. HEAD AND FACE: No signs of trauma. No ecchymosis, hematomas or skull depressions. No sinus tenderness. EYES: PERRLA, EOMI x 2, No injected conjunctiva, no nystagmus. EARS: Hearing grossly intact. Ear canals and tympanic membranes are within normal limits. MOUTH: Oropharynx within normal limits. NECK: Supple, trachea is midline, no adenopathy, no JVD, no carotid bruit, no c- spine tenderness, neck with full ROM. CHEST: Symmetric, no tenderness at palpation LUNGS: Clear to auscultation bilaterally. No wheezing or crackles. CVS: Regular rate and rhythm, S1 and S2 present, no murmurs or gallops appreciated. ABDOMEN: Soft, non-tender. No signs of distention. No rebound no guarding, and no masses palpated. Bowel sounds are normal. EXTREMITIES: FROM in all major joints, no edema, no cyanosis or clubbing. NEURO: Alert and oriented x 3. No acute neurological deficits. Speech is normal and follows commands. SKIN: Dry and warm PSYCH: Depressed, quiet, and denies any suicidal thoughts or plan. No homicidal thoughts or plan. No signs of psychosis or pressure speech. No tangential speech. Triage Information Reviewed: Yes Vital Signs On Initial Exam: Initial Vitals Temp Pulse Resp BP Pulse Ox 98.2 F 71 18 162/96 100 10/24/18 19:33 10/24/18 19:33 10/24/18 19:33 10/24/18 19:33 10/24/18 19:33 Vital Signs Reviewed: Yes Diagnostics - Vital Signs Vital Signs Temp Pulse Resp BP Pulse Ox 10/24/18 19:33 98.2 F 71 18 162/96 100 - Laboratory Lab Results: Lab Results 10/24/18 10/24/18 10/24/18 Range/Units 19:59 19:59 20:15 WBC 8.6 (3.5-10.8) 10^3/ul RBC 5.10 (4.00-5.40) 10^6/ul Hgb 15.1 (14.0-18.0) g/dl Hct 43 (42-52) % MCV 85 (80-94) fL MCH 30 (27-31) pg MCHC 35 (31-36) g/dl RDW 14 (10.5-15) % Plt Count 227 (150-450) 10^3/ul MPV 9.7 (7.4-10.4) fL Neut % (Auto) 66.9 % Lymph % (Auto) 23.1 % [place]uther[place] % (Auto) 7.0 % Eos % (Auto) 2.6 % Baso % (Auto) 0.4 % Absolute Neuts (auto) 5.7 (1.5-7.7) 10^3/ul Absolute Lymphs (auto) 2.0 (1.0-4.8) 10^3/ul Absolute Monos (auto) 0.6 (0-0.8) 10^3/ul Absolute Eos (auto) 0.2 (0-0.6) 10^3/ul Absolute Basos (auto) 0 (0-0.2) 10^3/ul Absolute Nucleated RBC 0 10^3/ul Nucleated RBC % 0.3 Sodium 138 (135-145) mmol/L Potassium 4.3 (3.5-5.0) mmol/L Chloride 105 (101-111) mmol/L Carbon Dioxide 28 (22-32) mmol/L Anion Gap 5 (2-11) mmol/L BUN 23 (6-24) mg/dL Creatinine 1.31 H (0.67-1.17) mg/dL Est GFR ( Amer) 74.9 (>60) Est GFR (Non-Af Amer) 61.9 (>60) BUN/Creatinine Ratio 17.6 (8-20) Glucose 87 (70-100) mg/dL Calcium 9.7 (8.6-10.3) mg/dL Total Bilirubin 0.40 (0.2-1.0) mg/dL AST 22 (13-39) U/L ALT 22 (7-52) U/L Alkaline Phosphatase 34 (34-104) U/L Total Protein 7.2 (6.4-8.9) g/dL Albumin 4.5 (3.2-5.2) g/dL Globulin 2.7 (2-4) g/dL Albumin/Globulin Ratio 1.7 (1-3) TSH 2.12 (0.34-5.60) mcIU/mL Urine Color Straw Urine Appearance Clear Urine pH 6.0 (5-9) Ur Specific [place] 1.013 (1.010-1.030) Urine Protein Negative (Negative) Urine Ketones Negative (Negative) Urine Blood Negative (Negative) Urine Nitrate Negative (Negative) Urine Bilirubin Negative (Negative) Urine Urobilinogen Negative (Negative) Ur Leukocyte Esterase Negative (Negative) Urine Glucose Negative (Negative) Salicylates < 2.50 (<30) mg/dL Urine Opiates Screen (None Detect) Acetaminophen < 15 mcg/mL Ur Barbiturates Screen (None Detect) Ur Phencyclidine Scrn (None Detect) Ur Amphetamines Screen (None Detect) U Benzodiazepines Scrn (None Detect) Urine Cocaine Screen (None Detect) U Cannabinoids Screen (None Detect) Serum Alcohol < 10 (<10) mg/dL 10/24/18 Range/Units 20:15 WBC (3.5-10.8) 10^3/ul RBC (4.00-5.40) 10^6/ul Hgb (14.0-18.0) g/dl Hct (42-52) % MCV (80-94) fL MCH (27-31) pg MCHC (31-36) g/dl RDW (10.5-15) % Plt Count (150-450) 10^3/ul MPV (7.4-10.4) fL Neut % (Auto) % Lymph % (Auto) % [place] % (Auto) % Eos % (Auto) % Baso % (Auto) % Absolute Neuts (auto) (1.5-7.7) 10^3/ul Absolute Lymphs (auto) (1.0-4.8) 10^3/ul Absolute Monos (auto) (0-0.8) 10^3/ul Absolute Eos (auto) (0-0.6) 10^3/ul Absolute Basos (auto) (0-0.2) 10^3/ul Absolute Nucleated RBC 10^3/ul Nucleated RBC % Sodium (135-145) mmol/L Potassium (3.5-5.0) mmol/L Chloride (101-111) mmol/L Carbon Dioxide (22-32) mmol/L Anion Gap (2-11) mmol/L BUN (6-24) mg/dL Creatinine (0.67-1.17) mg/dL Est GFR ( Amer) (>60) Est GFR (Non-Af Amer) (>60) BUN/Creatinine Ratio (8-20) Glucose (70-100) mg/dL Calcium (8.6-10.3) mg/dL Total Bilirubin (0.2-1.0) mg/dL AST (13-39) U/L ALT (7-52) U/L Alkaline Phosphatase (34-104) U/L Total Protein (6.4-8.9) g/dL Albumin (3.2-5.2) g/dL Globulin (2-4) g/dL Albumin/Globulin Ratio (1-3) TSH (0.34-5.60) mcIU/mL Urine Color Urine Appearance Urine pH (5-9) Ur Specific [place] (1.010-1.030) Urine Protein (Negative) Urine Ketones (Negative) Urine Blood (Negative) Urine Nitrate (Negative) Urine Bilirubin (Negative) Urine Urobilinogen (Negative) Ur Leukocyte Esterase (Negative) Urine Glucose (Negative) Salicylates (<30) mg/dL Urine Opiates Screen None detected (None Detect) Acetaminophen mcg/mL Ur Barbiturates Screen None detected (None Detect) Ur Phencyclidine Scrn None detected (None Detect) Ur Amphetamines Screen None detected (None Detect) U Benzodiazepines Scrn None detected (None Detect) Urine Cocaine Screen None detected (None Detect) U Cannabinoids Screen None detected (None Detect) Serum Alcohol (<10) mg/dL Result Diagrams: 10/24/18 19:59 10/24/18 19:59 Lab Statement: Any lab studies that have been ordered have been reviewed, and results considered in the medical decision making process. Course/Dx - Course Assessment/Plan: Patient is a 38 y/o M presenting to ED with complaints of possible manic episode, depression. He states that he had a manic episode two days ago and is concerned that another episode is starting. He also notes that he feels unwelcomed at home by his parents and his neighbors (patient lives with his parents). He states, "I just don't feel good mentally." He reports that he had SI with a plan a day ago, no SI, no HI at present. PMHx of bipolar disorder, schizoaffective disorder. Patient is on depakote, claims that he did not take his medication during one of these past days. He also notes that he gets abilify shots monthly, last dosage was 10/16/18. No PMHx, no PSHx, no cigarette, drugs, alcohol usage. FMHx of HTN and CA. Blood work w/o a significant abnormality. He is medically cleared. He is awaiting for a MHE. Patient is hemodynamically stable and A+O x 3. Patient will be signed out to Dr. Turner at shift change. - Differential Dx/Clinical Impression Differential Diagnosis/HQI/PQRI: Positive: Anxiety, Depression, Suicidal Ideation Provider Diagnosis: Bipolar disorder Discharge - Sign-Out/Discharge Documenting (check all that apply): Sign-Out Patient Signing out patient TO: Paulette Turner - Discharge Plan Condition: Stable Disposition: HOME Patient Education Materials: Bipolar Disorder (DC) Forms: *Gen. Provider Communication Referrals: No Primary Care Phys,NOPCP [Primary Care Provider] - - Billing Disposition and Condition Condition: STABLE - Attestation Statements Document Initiated by Scribe: Yes Documenting Scribe: ALESHA MIRANDA Provider For Whom Scribe is Documenting (Include Credential): BELTRAN THURMAN MD Scribe Attestation: I, ALESHA MIRANDA , scribed for BELTRAN THURMAN MD on 10/25/18 at 1051. Scribe Documentation Reviewed: Yes Provider Attestation: The documentation as recorded by the prateekibALESHA puckett accurately reflects the service I personally performed and the decisions made by me, BELTRAN THURMAN MD Status of Scribe Document: Viewed
[2018-10-25 01:28] VITALS: BP 149/76
--- NOTE | 2018-10-25 01:50 | ED ---
Progress - Consult/PCP Time Called: 22:00 Course/Dx - Course Course Of Treatment: Patient was signed out by Dr. Keenan at end of shift, pending MHE. Patient, per Dr. Son (Psych), will be diagnosed with bipolar disorder and discharged. Patient is agreeable to this plan. - Diagnoses Provider Diagnoses: Bipolar disorder Discharge - Sign-Out/Discharge Documenting (check all that apply): Patient Departure - Discharge Plan Condition: Stable Disposition: HOME Patient Education Materials: Bipolar Disorder (DC) Forms: *Gen. Provider Communication Referrals: No Primary Care Phys,NOPCP [Primary Care Provider] - - Attestation Statements Document Initiated by Scribe: Yes Documenting Scribe: Narayan Bird Provider For Whom Scribe is Documenting (Include Credential): Paulette Turner MD Scribe Attestation: Narayan Zaragoza, scribed for Paulette Turner MD on 10/25/18 at 0150. Status of Scribe Document: Ready
== END 2018-10-25 01:27 | disposition home or self-care (01) ==
LOC: ED 19:29
DX: F31.9 Bipolar disorder, unspecified (principal)
CPT/HCPCS: 36415; 80053; 80307; 80320; 80329; 81003; 84443; 85025; 99285; G0480

== ENCOUNTER 2019-02-15 21:25 | Emergency (ER) | payer MEDICARE, MEDICAID ==
--- NOTE | 2019-02-15 22:10 | ED ---
Medical Screening - HPI Summary HPI Summary: Patient complains of depression and intermittent SI 2 weeks. Patient states he lives with his parents as they help take care of his daughter, but he does not like living with them. States increased SI yesterday and today. Negative plan, has not take action on SI. Denies EtOH or record for additional drug use today. Denies any symptoms of illness or pain. - History of Current Complaint Chief Complaint: EDMentalHealth Stated Complaint: MHE PER PT Time Seen by Provider: 02/15/19 21:50 Onset/Duration: Started Days Ago Severity: moderate PMH/Surg Hx/FS Hx/Imm Hx Endocrine/Hematology History: Denies: Hx Diabetes, Hx Thyroid Disease Cardiovascular History: Denies: Hx Hypertension Respiratory History: Denies: Hx Asthma, Hx Chronic Obstructive Pulmonary Disease (COPD) GI History: Denies: Hx Ulcer History: Denies: Hx Dialysis Musculoskeletal History: Reports: Hx Orthopedic Injury - R Humerus fracture Sensory History: Reports: Hx Contacts or Glasses Denies: Hx Cataracts, Hx Deafness, Hx Hearing Aid Opthamlomology History: Reports: Hx Contacts or Glasses Denies: Hx Cataracts EENT History: Denies: Hx Deafness Neurological History: Denies: Hx Dementia Psychiatric History: Reports: Hx Schizophrenia - schizoaffective D/O, Hx Bipolar Disorder, Hx of Violent Episodes Against Others Comment Only: Hx Eating Disorder - uncertain - Surgical History Surgery Procedure, Year, and Place: Right Fifth Finger Tendon Repair, ~2002, [place] Hx Anesthesia Reactions: No Infectious Disease History: No Infectious Disease History: Denies: Hx Clostridium Difficile, Hx Hepatitis, Hx Human Immunodeficiency Virus (HIV), Hx of Known/Suspected MRSA, Hx Shingles, Hx Tuberculosis, Hx Known/ Suspected VRE, Hx Known/Suspected VRSA, History Other Infectious Disease, Traveled Outside the [place] in Last 30 Days - Family History Known Family History: Positive: None, Cardiac Disease, Hypertension Negative: Diabetes, Blood Disorder - Social History Alcohol Use: Occasionally Alcohol Amount: "once every ccouple of weeks" Substance Use Type: Reports: None Hx Tobacco Use: No Smoking Status (MU): Never Smoked Tobacco Type: eCigarettes Review of Systems Constitutional: Negative Eyes: Negative ENT: Negative Cardiovascular: Negative Respiratory: Negative Gastrointestinal: Negative Genitourinary: Negative Musculoskeletal: Negative Skin: Negative Neurological: Negative Positive: Depressed All Other Systems Reviewed And Are Negative: Yes Physical Exam Triage Information Reviewed: Yes Vital Signs On Initial Exam: Initial Vitals Temp Pulse Resp BP Pulse Ox 98.0 F 70 16 159/98 97 02/15/19 21:26 02/15/19 21:26 02/15/19 21:26 02/15/19 21:26 02/15/19 21:26 Vital Signs Reviewed: Yes Appearance: Positive: Well-Appearing Skin: Positive: Warm, Skin Color Reflects Adequate Perfusion Head/Face: Positive: Normal Head/Face Inspection Eyes: Positive: Normal ENT: Positive: Normal ENT inspection Neck: Positive: Supple Respiratory/Lung Sounds: Positive: Clear to Auscultation Cardiovascular: Positive: Normal Abdomen Description: Positive: Nontender Musculoskeletal: Positive: Normal Neurological: Positive: Normal Psychiatric: Positive: Normal AVPU Assessment: Alert - Eugenie Coma Scale Best Eye Response: 4 - Spontaneous Best Motor Response: 6 - Obeys Commands Best Verbal Response: 5 - Oriented Coma Scale Total: 15 Diagnostics - Vital Signs Vital Signs Temp Pulse Resp BP Pulse Ox 02/15/19 21:26 98.0 F 70 16 159/98 97 - Laboratory Result Diagrams: 02/15/19 22:05 02/15/19 22:05 Lab Statement: Any lab studies that have been ordered have been reviewed, and results considered in the medical decision making process. Course/Dx - Course Course Of Treatment: Patient complains of depression and intermittent SI 2 weeks. Patient states he lives with his parents as they help take care of his daughter, but he does not like living with them. States increased SI yesterday and today. Negative plan, has not take action on SI. Denies EtOH or record for additional drug use today. Denies any symptoms of illness or pain. Vital signs within normal limits. Labs unremarkable. - Diagnoses Provider Diagnoses: Adjustment disorder Discharge - Sign-Out/Discharge Documenting (check all that apply): Sign-Out Patient Signing out patient TO: Sourav Pandya Patient Received Moderate/Deep Sedation with Procedure: No - Discharge Plan Condition: Stable Disposition: HOME Patient Education Materials: Stress (ED) Referrals: [facility] [Outside] Additional Instructions: Per completion of a mental health evaluation, you are cleared for release and do not require inpatient psychiatric hospitalization at this time. Please go to nearest emergency room or call 911 if safety concerns arise or condition worsens. You need to follow up with outpatient counseling services: [facility] [phone] [place] [id number] Walk-in hours are Saturday - Saturday, 9am - 2:30pm. Important Phone Numbers: [facility] ph:[phone] Suicide Prevention and Crisis Services ph:[phone] National Suicide Prevention Lifeline ph:926-682-EWHL (8699) [facility] ph:[phone] [facility] ph:[phone] Alcohol and Drug [facility] Recovery Operator ([facility]) ph:[phone] Alcoholics Anonymous ph:[phone] [facility] ph:[phone] [place] [employer] ph:[phone] - Billing Disposition and Condition Condition: STABLE Disposition: Home
[2019-02-15 22:13] LABS: ABS Eosinophils 0.3 10^3/ul (0-0.6); ABS Lymphocytes 2.4 10^3/ul (1.0-4.8); ABS Monocytes 0.6 10^3/ul (0-0.8); ABS Neutrophils 3.8 10^3/ul (1.5-7.7); Eosinophil % 4.3 %; Hematocrit 44 % (42-52); Hemoglobin 15.2 g/dL (14.0-18.0); Lymphocyte % 33.3 %; Mean Corpuscular HGB Conc 34 g/dL (31-36); Mean Corpuscular Hemoglobin 29 pg (27-31); Mean Corpuscular Volume 85 fL (80-94); Mean Platelet Volume 9.4 fL (7.4-10.4); Nucleated Red Blood Cells % 0.1; Platelet Count 228 10^3/uL (150-450); Red Cell Distribution Width 14 % (10.5-15); White Blood Count 7.2 10^3/uL (3.5-10.8)
[2019-02-15 22:14] LABS: Urine Appearance Clear; Urine Bilirubin Negative (Negative); Urine Blood Negative (Negative); Urine Color Yellow; Urine Glucose Negative (Negative); Urine Ketones Trace (Negative); Urine Nitrite Negative (Negative); Urine Protein Negative (Negative); Urine Specific Gravity 1.012 (1.010-1.030); Urine Urobilinogen Negative (Negative)
[2019-02-15 22:29] LABS: ALT 23 U/L (7-52); AST 19 U/L (13-39); Albumin 4.3 g/dL (3.2-5.2); Albumin/Globulin Ratio 1.5 (1-3); Alkaline Phosphatase 36 U/L (34-104); Anion Gap 6 mmol/L (2-11); BUN/Creatinine Ratio 12.6 (8-20); Blood Urea Nitrogen 13 mg/dL (6-24); CO2 Carbon Dioxide 28 mmol/L (22-32); Calcium 9.3 mg/dL (8.6-10.3); Chloride 104 mmol/L (101-111); EGFR African American 98.9 (>60); EGFR Non-African American 81.7 (>60); Globulin 2.8 g/dL (2-4); Glucose 107 mg/dL (70-100); Potassium 3.8 mmol/L (3.5-5.0); Sodium 138 mmol/L (135-145); Total Protein 7.1 g/dL (6.4-8.9)
[2019-02-15 22:31] LABS: Urine Benzodiazepine Screen None Detected (None Detect); Urine Opiates Screen None Detected (None Detect)
--- OUTSIDE RECORDS SUMMARY | 2019-02-15 22:32 | XMS REPORT | Continuity of Care Document ---
:1980 External Reference #:[id number] Author Name Josseline Sharp Care Team Providers Name Role Phone Charles Forrester NP Primary Care Physician Unavailable Payers Date Identification Numbers Payment Provider Subscriber Effective: 2010 Policy Number: [id number] Medicare Osito Fernandez PayID: [id number] [address] [place] [address] Policy Number: [id number] Medicaid Osito Fernandez Group Name: [id number] [address] PayID: [id number] [place] [address] Advance Directives Description No Information Available Problems Active Problems Provider Date Bipolar disorder Rosas Osborn M.D.,FACP Onset: 04/12/2009 Iron deficiency anemia Inocencia Booth, N.P. Onset: 10/03/2011 Vitamin D deficiency Inocencia Booth, N.P. Onset: 10/03/2011 Allergic rhinitis Inocencia Booth, N.P. Onset: 10/03/2011 Pure hyperglyceridemia Inocencia Booth, N.P. Onset: 10/03/2011 Testicular hypofunction Rosas Osborn M.D.,FACP Onset: 11/05/2012 Family History Date Family Member(s) Observation Comments General Lung Cancer Mother Hypertension Siblings 3 2 brothers 1 brother with Hypertension. , 1 sister Social History Type Date Description Comments Sex Unknown Lives With Family Occupation Unemployed Tobacco Use Start: Unknown Never Smoked Cigarettes ETOH Use Occasionally consumes every couple of alcohol weeks Tobacco Use Start: Unknown Patient has never pt vaped for aprox smoked 3 months and has since quit. Recreational Drug Use Sporadically uses Marijuana Smoking Status Reviewed: 01/23/19 Patient has never pt vaped for aprox smoked 3 months and has since quit. Exercise Type/Frequency Exercises regularly weight lifting and running daily. Allergies, Adverse Reactions, Alerts Description No Known Drug Allergies Medications Active Medications SIG Qnty Indications Ordering Provider Date Depakote 12/08/18 reports Unknown 500mg Tablets taking 2 per day. 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 Ibuprofen 1 by mouth three 90tabs M76.821 Armando Dukes 07/31/2018 - 800mg Tablets times a day w aditi Baltazar MD 12/07/2018 as needed pain and swelling Ciclopirox Olamine apply to affected 30gm Rosas Sharpe 02/24/2018 - 0.77% area every day as [place]on, 07/31/2018 Cream needed mixed w/ Shannon,FACP topical steroid Triamcinolone topical to 80gm Rosas Sharpe 02/24/2018 - Acetonide face/neck qd prn [place]on, 07/31/2018 0.025% Cream Ernst.DPrimo,FACP Mometasone Furoate 1 spray each 17gm Rosas Sharpe 01/23/2017 - nostril qd [place], 01/24/2017 50mcg/Act Suspension Ernst.Dell,FACP Androderm topical qd 30units 257.2 Rosas Sharpe 04/22/2014 - 4mg/24HR [place], 04/27/2014 Patches 24HR Shannon,FACP 3ML Syringe/Needle use weekly for 6units 257.2 Rosas Sharpe 10/28/2012 - Thin Wall [place] testosterone Afton, 06/08/2013 22GX1" Im injections M.Dell,FACP 22G X 1" 3 ML Misc 3ML Syringe/Needle use weekly for 12units 257.2 Rosas Sharpe 10/07/2012 - Thin Wall Lu[place] testosterone Afton, 10/07/2012 22GX1" Im injections Shannon,FACP 22G X 1" 3 ML Misc 3ML Luer-[place] Syringe im q 2 weeks for 12units 257.2 Rosas Sharpe 2012 - 20G X 1" Testosterone Afton, 10/28/2012 21G X 1" 3 ML injections Shannon,FACP Misc Testosterone Cypionate 1.5 ml im q2wks 10ml 257.2 [place] 10/03/2012 - Shannon Andres 06/08/2013 200mg/ml Oil Testosterone Cypionate 1 ml im q2 weeks. 2ml 257.2 Rosas Sharpe 2012 - [place], 10/03/2012 100mg/ml Oil Shannon,FACP 2-3ML Syringe/Luer with needle 18 12units 257.2 Rosas Sharpe 10/02/2012 - Lock Tip gauge 2x/mon Afton, 10/07/2012 3ml Misc Shannon,FACP Androderm topical qd 30units 257.2 Rosas Sharpe 09/03/2012 - 4mg/24HR [place]on, 11/05/2012 Patches 24HR Shannon,FACP Axiron 1 pump each 60doses 257.2 Rosas Sharpe 09/01/2012 - 30mg/Act Solution underarm qd [place]on, 09/03/2012 Shannon,FACP Fluticasone Propionate Inhale 2 sprays 16gm 477.9 Inocencia 10/03/2011 - into nostril daily [place] 09/01/2012 50mcg/Act Suspension in each nostril n, N.P. for allergic rhinitis Pramipexole take 1 to 2 60tabs 333.94 Rosas Sharpe 12/20/2010 - Dihydrochloride tablets at bedtime Afton, 10/03/2011 0.25mg if needed Shannon,FACP Tablets Invega po qd Rosas Sharpe 07/28/2010 - 9mg Tablets ER [place]on, 08/04/2013 24HR Shannon,FACP Mirapex take one to two 60tabs 333.94 Rosas Sharpe 07/28/2010 - 0.25mg Tablets tablet at bedtime Anurag, 12/20/2010 as needed Shannon,FACP Invega 1 po qAM Rosas Sharpe 03/30/2010 - ? Tablets ER 24HR Anurag, 07/28/2010 Shannon,FACP Viagra 1 po prn 3tabs 607.84 Rosas Sharpe 03/30/2010 - 50mg Tablets Anurag, 10/03/2011 Shannon,FACP Vitamin D 1 po bid 60caps Rosas Sharpe 01/23/2010 - 400Unit Anurag, 09/01/2012 Capsules Shannon,FACP Risperdal 1 po qpm Rosas Sharpe 09/20/2009 - 3mg Tablets Anurag, 03/30/2010 Shannon,FACP Depakote 2 po in evening Rosas Sharpe 05/10/2009 - 250mg Tablets DR Osborn, 08/04/2013 Shannon,FACP Depakote 3 po @ 6pm nightly 300.00 Rosas Sharpe 05/10/2009 - 500mg Tablets DR Osborn, 10/03/2011 Shannon,FACP Depakote ER 1 tab PO q6pm with 30tabs Rosas Sharpe 05/04/2009 - 250mg Tablets 500x3 depak[address] Osborn, 05/10/2009 ER 24HR Shannon,FACP Risperdal by mouth at 8PM 30tabs Rosas Sharpe 05/04/2009 - 4mg Tablets daily Anurag, 09/20/2009 Shannon,FACP Lexapro 1 PO Every Day 30tabs 300.00 Rosas Sharpe 07/14/2008 - 10mg Tablets Anurag, 04/12/2009 samples Shannon,FACP Risperdal 1 po at 6PM 30tabs Unknown - Tablets 05/04/2009 Depakote ER 3 tabs PO at 6PM 90tabs 300.00 Rossa Sharpe - 500mg Tablets nightly [place]on, 05/10/2009 ER 24HR Shannon,FACP Testosterone Unknown - Injections 06/12/2013 Invega Sustenna Im every 4 weeks. Unknown - 06/07/2014 117mg/0.75ML Suspension Paxil 1 po qd Unknown - 40mg Tablets 06/07/2014 Abilify 1 by mouth every 30tabs Unknown - 20mg Tablets day 12/19/2015 Vitamin D Unknown - 400Unit/ML 02/24/2018 Liquid Vitamin D by mouth everyday Unknown - 1000Unit 12/07/2018 Tablets Immunizations CPT Code Status Date Vaccine Lot # [id number] Given 09/19/2018 Influ Vacc Quadrivalent Preser/Antibiotic Free Im Use [id number] Given 05/20/2016 Flu Vaccine NOS [id number] Given 06/07/2014 Influenza Virus Vaccine, Quadrivalent, Split, [id number] Preservative Free [id number] Given 06/12/2013 Flu Vaccine Split Virus Preservative Free For [id number] Indiv 3Yr Older Q2037 Given 09/01/2012 Fluvirin Im 3Yrs And Older [id number] Given 07/26/2011 Fluzone Vaccine 66053 Given 07/21/2010 Influenza Virus 3Yrs & Over [id number] Vital Signs Date Vital Result Comment 01/23/2019 4:15pm Height 68.0 inches 5'8" Weight 206.00 lb Heart Rate 70 /min BP Systolic 133 mmHg BP Diastolic 84 mmHg Body Temperature 97.8 F O2 % BldC Oximetry 99 % BMI (Body Mass Index) 31.3 kg/m2 12/08/2018 4:24pm Height 68.0 inches 5'8" Weight 209.50 lb Heart Rate 83 /min BP Systolic 144 mmHg BP Diastolic 93 mmHg Body Temperature 97.3 F O2 % BldC Oximetry 97 % BMI (Body Mass Index) 31.9 kg/m2 07/31/2018 10:57am Height 68.0 inches 5'8" Weight 214.00 lb BP Systolic 130 mmHg BP Diastolic 100 mmHg Pain Level 6 BMI (Body Mass Index) 32.5 kg/m2 06/24/2018 7:35am Height 69 inches 5'9" Weight 214.00 lb w/ shoes Heart Rate 74 /min BP Systolic Sitting 138 mmHg BP Diastolic Sitting 91 mmHg BMI (Body Mass Index) 31.6 kg/m2 06/18/2018 8:21am Height 69 inches 5'9" Weight 214.00 lb Heart Rate 69 /min BP Systolic Sitting 128 mmHg BP Diastolic Sitting 76 mmHg O2 % BldC Oximetry 97 % BMI (Body Mass Index) 31.6 kg/m2 05/21/2018 9:55am Height 69 inches 5'9" Weight 203.00 lb Heart Rate 64 /min BP Systolic Sitting 120 mmHg BP Diastolic Sitting 88 mmHg O2 % BldC Oximetry 99 % BMI (Body Mass Index) 30.0 kg/m2 02/24/2018 10:07am Height 69 inches 5'9" Weight 207.00 lb Heart Rate 64 /min BP Systolic Sitting 126 mmHg BP Diastolic Sitting 80 mmHg Body Temperature 96.0 F O2 % BldC Oximetry 98 % BMI (Body Mass Index) 30.6 kg/m2 11/20/2017 4:15pm Weight 216.25 lb Heart Rate 68 /min BP Systolic 130 mmHg BP Diastolic 85 mmHg Body Temperature 98.9 F O2 % BldC Oximetry 98 % 01/23/2017 3:02pm Weight 209.38 lb Heart Rate 72 /min BP Systolic Sitting 150 mmHg BP Diastolic Sitting 100 mmHg BP Systolic Recheck 148 mmHg BP Diastolic Recheck 95 mmHg Body Temperature 97.1 F O2 % BldC Oximetry 99 % 12/19/2015 8:33am Height 68.5 inches 5'8.50" Weight 208.25 lb Heart Rate 60 /min BP Systolic Sitting 139 mmHg BP Diastolic Sitting 83 mmHg Body Temperature 97.0 F O2 % BldC Oximetry 99 % BMI (Body Mass Index) 31.2 kg/m2 10/10/2015 12:55pm Height 68.5 inches 5'8.50" Weight 208.00 lb Heart Rate 56 /min BP Systolic 117 mmHg BP Diastolic 68 mmHg Body Temperature 97.2 F O2 % BldC Oximetry 100 % BMI (Body Mass Index) 31.2 kg/m2 06/21/2014 2:07pm Height 68.5 inches 5'8.50" Weight 213.50 lb Heart Rate 72 /min BP Systolic Sitting 128 mmHg BP Diastolic Sitting 84 mmHg Body Temperature 97.5 F BMI (Body Mass Index) 32.0 kg/m2 06/07/2014 3:45pm Height 69 inches 5'9" Weight 222.25 lb Heart Rate 88 /min BP Systolic Sitting 160 mmHg BP Diastolic Sitting 80 mmHg Body Temperature 97.7 F O2 % BldC Oximetry 98 % BMI (Body Mass Index) 32.8 kg/m2 04/22/2014 3:16pm Height 69 inches 5'9" Weight 211.00 lb Heart Rate 108 /min BP Systolic Sitting 134 mmHg BP Diastolic Sitting 88 mmHg Body Temperature 96.9 F BMI (Body Mass Index) 31.2 kg/m2 03/17/2014 2:30pm Height 69 inches 5'9" Weight 205.00 lb Heart Rate 80 /min BP Systolic Sitting 126 mmHg BP Diastolic Sitting 80 mmHg BMI (Body Mass Index) 30.3 kg/m2 06/12/2013 3:06pm Weight 188.50 lb Heart Rate 86 /min BP Systolic Sitting 170 mmHg BP Diastolic Sitting 82 mmHg 12/31/2012 1:04pm Height 69 inches 5'9" Weight 200.50 lb Heart Rate 80 /min BP Systolic Sitting 118 mmHg BP Diastolic Sitting 74 mmHg BMI (Body Mass Index) 29.6 kg/m2 11/05/2012 8:58am Height 68.5 inches 5'8.50" Weight 201.00 lb Heart Rate 88 /min BP Systolic Sitting 122 mmHg BP Diastolic Sitting 84 mmHg BMI (Body Mass Index) 30.1 kg/m2 10/02/2012 2:57pm Weight 204.00 lb Heart Rate 76 /min BP Systolic Sitting 146 mmHg BP Diastolic Sitting 86 mmHg 09/01/2012 2:46pm Height 68.50 inches 5'8.50" Weight 195.00 lb BMI (Body Mass Index) 29.2 kg/m2 10/03/2011 1:02pm Height 68.50 inches 5'8.50" Weight 220.00 lb Heart Rate 89 /min BP Systolic Sitting 135 mmHg BP Diastolic Sitting 95 mmHg Body Temperature 96.1 F BMI (Body Mass Index) 33.0 kg/m2 09/01/2010 1:48pm Weight 248.00 lb Heart Rate 90 /min BP Systolic Sitting 132 mmHg BP Diastolic Sitting 86 mmHg 07/28/2010 10:38am Weight 240.00 lb Heart Rate 80 /min BP Systolic Sitting 140 mmHg BP Diastolic Sitting 90 mmHg 03/30/2010 10:00am Weight 234.00 lb Heart Rate 80 /min BP Systolic Sitting 136 mmHg BP Diastolic Sitting 82 mmHg 01/23/2010 9:45am Weight 241.00 lb Heart Rate 80 /min BP Systolic 136 mmHg BP Diastolic 80 mmHg 09/20/2009 9:42am Weight 232.00 lb Heart Rate 76 /min BP Systolic Sitting 115 mmHg BP Diastolic Sitting 75 mmHg 08/03/2009 11:46am Weight 221.00 lb Heart Rate 70 /min BP Systolic Sitting 130 mmHg BP Diastolic Sitting 90 mmHg 05/04/2009 2:50pm Weight 213.00 lb Heart Rate 90 /min BP Systolic Sitting 120 mmHg BP Diastolic Sitting 70 mmHg 04/12/2009 11:30am Weight 197.50 lb Heart Rate 130 /min BP Systolic Sitting 142 mmHg BP Diastolic Sitting 80 mmHg Respiratory Rate 24 /min 07/14/2008 3:14pm Height 69 inches 5'9" Weight 182.00 lb Heart Rate 68 /min BP Systolic Sitting 128 mmHg BP Diastolic Sitting 76 mmHg BMI (Body Mass Index) 26.9 kg/m2 03/30/2008 2:10pm Height 69 inches 5'9" Weight 173.00 lb Heart Rate 68 /min BP Systolic Sitting 164 mmHg BP Diastolic Sitting 80 mmHg BMI (Body Mass Index) 25.5 kg/m2 Results Test Date Facility Test Result H/L Range Note CBC Auto Diff 10/24/2018 [facility] White Blood 8.6 10^3/uL N 3.5-10.[address] [place] [address] [phone] Red Blood Count 5.10 10^6/uL N 4.00-5.40 Hemoglobin 15.1 g/dL N 14.0-18.0 Hematocrit 43 % N 42-52 Mean Corpuscular Volume 85 fL N 80-94 Mean Corpuscular Hemoglobin 30 pg N 27-31 Mean Corpuscular HGB Conc 35 g/dL N 31-36 Red Cell Distribution Width 14 % N 10.5-15 Platelet Count 227 10^3/uL N 150-450 Mean Platelet Volume 9.7 fL N 7.4-10.4 Abs Neutrophils 5.7 10^3/uL N 1.5-7.7 Abs Lymphocytes 2.0 10^3/uL N 1.0-4.8 Abs Monocytes 0.6 10^3/uL N 0-0.8 Abs Eosinophils 0.2 10^3/uL N 0-0.6 Abs Basophils 0 10^3/uL N 0-0.2 Abs Nucleated RBC 0 10^3/uL Granulocyte % 66.9 % Lymphocyte % 23.1 % Monocyte % 7.0 % Eosinophil % 2.6 % Basophil % 0.4 % Nucleated Red Blood Cells % 0.3 Urinalysis Profile 10/24/2018 [facility] Urine Color Straw [address] [place] [address] [phone] Urine Appearance Clear Urine Specific Walker 1.013 N 1.010-1.030 Urine pH 6.0 N 5-9 Urine Urobilinogen Negative Negative Urine Ketones Negative Negative Urine Protein Negative Negative Urine Leukocytes Negative Negative Urine Blood Negative Negative Urine Nitrite Negative Negative Urine Bilirubin Negative Negative Urine Glucose Negative Negative Urine Drug 10/24/2018 [facility] Amphetamine Ur None Detected None Detect SCR ED [address] [place] [address] [phone] Barbiturates Urine Screen None Detected None Detect Benzodiazepine Urine Screen None Detected None Detect Urine Cannabinoids Screen None Detected None Detect Urine Cocaine Screen None Detected None Detect Urine Opiates Screen None Detected None Detect Urine Phencyclidine Screen None Detected None Detect 1 Comp Metabolic Panel 10/24/2018 [facility] Sodium 138 mmol/L N 135-145 [address] [place] [address] [phone] Potassium 4.3 mmol/L N 3.5-5.0 Chloride 105 mmol/L N 101-111 Co2 Carbon Dioxide 28 mmol/L N 22-32 Anion Gap 5 mmol/L N 2-11 Glucose 87 mg/dL N 70-100 Blood Urea Nitrogen 23 mg/dL N 6-24 Calcium 9.7 mg/dL N 8.6-10.3 Total Protein 7.2 g/dL N 6.4-8.9 Albumin 4.5 g/dL N 3.2-5.2 Globulin 2.7 g/dL N 2-4 Albumin/Globulin Ratio 1.7 N 1-3 Total Bilirubin 0.40 mg/dL N 0.2-1.0 Alkaline Phosphatase 34 U/L N 34-104 Alt 22 U/L N 7-52 Ast 22 U/L N 13-39 Creatinine 1.31 mg/dL High 0.67-1.17 BUN/Creatinine Ratio 17.6 N 8-20 Egfr Non- 61.9 >60 Egfr 74.9 >60 2 Laboratory test 10/24/2018 [facility] Acetaminophen < 15 g/mL [address] [place] [address] [phone] Alcohol < 10 mg/dL N <10 Salicylate < 2.50 mg/dL <30 TSH (Thyroid Stim Horm) 2.12 mcIU/mL N 0.34-5.60 Laboratory test 06/24/2018 [facility] Testosterone 458.97 N 240-[address] Total ng/[place] [address] [phone] CBC Auto Diff 06/24/2018 [facility] White Blood Count 6.7 N 3.5-10.[address] 10^3/[place] [address] [phone] Red Blood Count 5.45 10^6/uL High 4.00-5.40 Hemoglobin 16.1 g/dL N 14.0-18.0 Hematocrit 47 % N 42-52 Mean Corpuscular Volume 86 fL N 80-94 Mean Corpuscular Hemoglobin 30 pg N 27-31 Mean Corpuscular HGB Conc 34 g/dL N 31-36 Red Cell Distribution Width 14 % N 10.5-15 Platelet Count 242 10^3/uL N 150-450 Mean Platelet Volume 9.2 um3 N 7.4-10.4 Abs Neutrophils 4.2 10^3/uL N 1.5-7.7 Abs Lymphocytes 1.6 10^3/uL N 1.0-4.8 Abs Monocytes 0.7 10^3/uL N 0-0.8 Abs Eosinophils 0.2 10^3/uL N 0-0.6 Abs Basophils 0 10^3/uL N 0-0.2 Abs Nucleated RBC 0 10^3/uL Granulocyte % 63.1 % N 38-83 Lymphocyte % 24.0 % Low 25-47 Monocyte % 9.9 % High 0-7 Eosinophil % 2.5 % N 0-6 Basophil % 0.5 % N 0-2 Nucleated Red Blood Cells % 0.1 Laboratory test 06/24/2018 [facility] Prolactin 3.0 ng/mL N 1.0-20.[address] [place] [address] [phone] TSH (Thyroid Stim Horm) 4.26 mcIU/mL N 0.34-5.60 Vitamin D Total 25(Oh) 31.7 ng/mL N 20-50 FSH And LH 06/24/2018 [facility] FSH (Follicle < 0.2 mIU/mL Low 1-[address] Stim Hormone) [place] [address] [phone] LH (Lutenizing Hormone) < 0.2 mcIU/mL Low 2-12 CBC Auto Diff 03/11/2018 [facility] White Blood 6.4 10^3/uL N 3.5-10.[address] [place] [address] [phone] Red Blood Count 5.37 10^6/uL N 4.00-5.40 Hemoglobin 16.1 g/dL N 14.0-18.0 Hematocrit 45 % N 42-52 Mean Corpuscular Volume 84 fL N 80-94 Mean Corpuscular Hemoglobin 30 pg N 27-31 Mean Corpuscular HGB Conc 36 g/dL N 31-36 Red Cell Distribution Width 14 % N 10.5-15 Platelet Count 215 10^3/uL N 150-450 Mean Platelet Volume 9.9 um3 N 7.4-10.4 Abs Neutrophils 3.5 10^3/uL N 1.5-7.7 Abs Lymphocytes 2.2 10^3/uL N 1.0-4.8 Abs Monocytes 0.4 10^3/uL N 0-0.8 Abs Eosinophils 0.2 10^3/uL N 0-0.6 Abs Basophils 0 10^3/uL N 0-0.2 Abs Nucleated RBC 0 10^3/uL Granulocyte % 54.4 % N 38-83 Lymphocyte % 34.9 % N 25-47 Monocyte % 6.7 % N 0-7 Eosinophil % 3.5 % N 0-6 Basophil % 0.5 % N 0-2 Nucleated Red Blood Cells % 0.2 Comp Metabolic Panel 03/11/2018 [facility] Sodium 139 mmol/L N 135-[address] [place] [address] [phone] Chloride 102 mmol/L N 101-111 Co2 Carbon Dioxide 30 mmol/L N 22-32 Glucose 101 mg/dL High 70-100 Blood Urea Nitrogen 14 mg/dL N 6-24 Creatinine 1.12 mg/dL N 0.67-1.17 BUN/Creatinine Ratio 12.5 N 8-20 Calcium 9.6 mg/dL N 8.6-10.3 Total Protein 7.8 g/dL N 6.4-8.9 Albumin 4.5 g/dL N 3.2-5.2 Globulin 3.3 g/dL N 2-4 Albumin/Globulin Ratio 1.4 N 1-3 Total Bilirubin 0.40 mg/dL N 0.2-1.0 Alkaline Phosphatase 34 U/L N 34-104 Alt 18 U/L N 7-52 Egfr Non- 74.6 >60 Egfr 90.3 >60 4 Potassium TNP mmol/L 3.5-5.0 5 Anion Gap 7 mmol/L N 2-11 Ast TNP U/L 13-39 6 Laboratory test 03/11/2018 [facility] Acetaminophen < 15 g/mL 7 finding [address] [place] [address] [phone] Alcohol < 10 mg/dL N <10 Salicylate < 2.50 mg/dL <30 TSH (Thyroid Stim Horm) 2.87 mcIU/mL N 0.34-5.60 Urinalysis Profile 04/30/2017 [facility] Urine Color Colorless N [address] [place] [address] [phone] Urine Appearance Clear N Urine Specific Walker 1.003 Low 1.010-1.030 Urine pH 8.0 N 5-9 Urine Urobilinogen Negative N Negative Urine Ketones Negative N Negative Urine Protein Negative N Negative Urine Leukocytes Negative N Negative Urine Blood Negative N Negative Urine Nitrite Negative N Negative Urine Bilirubin Negative N Negative Urine Glucose Negative N Negative Urine Drug 04/30/2017 [facility] Amphetamine Ur None Detected N None Detect SCR ED & [address] [place] [address] [phone] Barbiturates Urine Screen None Detected N None Detect Benzodiazepine Urine Screen None Detected N None Detect Urine Cannabinoids Screen None Detected N None Detect Urine Cocaine Screen None Detected N None Detect Urine Opiates Screen None Detected N None Detect Urine Phencyclidine Screen None Detected N None Detect 8 Comp Metabolic Panel 04/30/2017 [facility] Sodium 136 mmol/L N 133-145 [address] [place] [address] [phone] Potassium 3.9 mmol/L N 3.5-5.0 Chloride 101 mmol/L N 101-111 Co2 Carbon Dioxide 29 mmol/L N 22-32 Anion Gap 6 mmol/L N 2-11 Glucose 107 mg/dL High 70-100 Blood Urea Nitrogen 16 mg/dL N 6-24 Creatinine 1.11 mg/dL N 0.67-1.17 BUN/Creatinine Ratio 14.4 N 8-20 Calcium 9.7 mg/dL N 8.6-10.3 Total Protein 8.5 g/dL N 6.4-8.9 Albumin 4.9 g/dL N 3.2-5.2 Globulin 3.6 g/dL N 2-4 Albumin/Globulin Ratio 1.4 N 1-3 Total Bilirubin 0.70 mg/dL N 0.2-1.0 Alkaline Phosphatase 32 U/L Low 34-104 Alt 17 U/L N 7-52 Ast 20 U/L N 13-39 Egfr Non- 75.8 N >60 Egfr 97.5 N >60 9 Laboratory test 04/30/2017 [facility] Valproic Acid 74.0 g/mL N 50-[address] (Depakene) [place] [address] [phone] Acetaminophen < 15 g/mL N 10 Alcohol < 10 mg/dL N <10 Salicylate < 2.50 mg/dL N <30 TSH (Thyroid Stim Horm) 4.55 mcIU/mL N 0.34-5.60 CBC Auto Diff 04/30/2017 [facility] White Blood 7.3 10^3/uL N 3.5-10.[address] [place] [address] [phone] Red Blood Count 5.71 10^6/uL High 4.0-5.4 Hemoglobin 16.7 g/dL N 14.0-18.0 Hematocrit 49 % N 42-52 Mean Corpuscular Volume 85 fL N 80-94 Mean Corpuscular Hemoglobin 29 pg N 27-31 Mean Corpuscular HGB Conc 34 g/dL N 31-36 Red Cell Distribution Width 14 % N 10.5-15 Platelet Count 199 10^3/uL N 150-450 Mean Platelet Volume 10 um3 N 7.4-10.4 Abs Neutrophils 5.6 10^3/uL N 1.5-7.7 Abs Lymphocytes 1.2 10^3/uL N 1.0-4.8 Abs Monocytes 0.4 10^3/uL N 0-0.8 Abs Eosinophils 0.1 10^3/uL N 0-0.6 Abs Basophils 0 10^3/uL N 0-0.2 Abs Nucleated RBC 0.01 10^3/uL N Granulocyte % 77.7 % N 38-83 Lymphocyte % 16.1 % Low 25-47 Monocyte % 5.2 % N 1-9 Eosinophil % 0.7 % N 0-6 Basophil % 0.3 % N 0-2 Nucleated Red Blood Cells % 0.1 N Testosterone 12/19/2015 [facility] Free 11.4 N 4.85-19.0 11 Free & Total [address] Testosterone ng/[place] [address] ng/dl [phone] Testosterone 367 ng/dL N 240-950 12 CBC Auto Diff 12/19/2015 [facility] White Blood 5.4 10^3/uL N 3.5-10.[address] [place] [address] [phone] Red Blood Count 5.30 10^6/uL N 4.0-5.4 Hemoglobin 15.8 g/dL N 14.0-18.0 Hematocrit 46 % N 42-52 Mean Corpuscular Volume 86 fL N 80-94 Mean Corpuscular Hemoglobin 30 pg N 27-31 Mean Corpuscular HGB Conc 35 g/dL N 31-36 Red Cell Distribution Width 14 % N 10.5-15 Platelet Count 208 10^3/uL N 150-450 Mean Platelet Volume 10 um3 N 7.4-10.4 Abs Neutrophils 3.3 10^3/uL N 1.5-7.7 Abs Lymphocytes 1.5 10^3/uL N 1.0-4.8 Abs Monocytes 0.5 10^3/uL N 0-0.8 Abs Eosinophils 0.2 10^3/uL N 0-0.6 Abs Basophils 0 10^3/uL N 0-0.2 Abs Nucleated RBC 0 10^3/uL N Granulocyte % 60.0 % N 38-83 Lymphocyte % 27.3 % N 25-47 Monocyte % 8.8 % N 1-9 Eosinophil % 3.5 % N 0-6 Basophil % 0.4 % N 0-2 Nucleated Red Blood Cells % 0.1 N FSH And LH 12/19/2015 [facility] FSH (Follicle Stim 2.4 mIU/mL N 1-[address] Hormone) [place] [address] [phone] LH (Lutenizing Hormone) 3.0 ?IU/mL N 2-12 Laboratory test 09/06/2014 [facility] Testosterone 341.52 N 240-[address] ng/[place] [address] [phone] Laboratory test 06/21/2014 [facility] Testosterone 247.99 N 240-950 13, [address] ng/[place] [address] [phone] Comp Metabolic 06/21/2014 [facility] Sodium 136 mmol/L N 133- [address] [place] [address] [phone] Potassium 4.2 mmol/L N 3.7-5.6 Chloride 101 mmol/L N 101-111 Co2 Carbon Dioxide 29 mmol/L N 22-32 Anion Gap 6 mmol/L N 2-11 Glucose 86 mg/dL N 70-100 Blood Urea Nitrogen 13 mg/dL N 6-24 Creatinine 0.91 mg/dL N 0.67-1.17 BUN/Creatinine Ratio 14.3 N 8-20 Calcium 9.6 mg/dL N 8.6-10.3 Total Protein 7.4 g/dL N 6.4-8.9 Albumin 4.3 g/dL N 3.2-5.2 Globulin 3.1 g/dL N 2-4 Albumin/Globulin Ratio 1.4 N 1-3 Total Bilirubin 0.40 mg/dL N 0.2-1.0 Alkaline Phosphatase 38 U/L N 34-104 Alt 17 U/L N 7-52 Ast 15 U/L N 13-39 Egfr Non- 97.2 N >60 Egfr 125.0 N >60 15 CBC With 06/21/2014 [facility] White Blood 6.0 10^3/uL N 4.8- 10.8 Manual Diff [address] [place] [address] [phone] Red Blood Count 4.72 10^6/uL N 4.0-5.4 Hemoglobin 13.8 g/dL Low 14.0-18.0 Hematocrit 40 % Low 42-52 Mean Corpuscular Volume 84 fL N 80-94 Mean Corpuscular Hemoglobin 29 pg N 27-31 Mean Corpuscular HGB Conc 35 g/dL N 31-36 Red Cell Distribution Width 13 % N 10.5-15 Platelet Count 269 10^3/uL N 150-450 Mean Platelet Volume 9 um3 N 7.4-10.4 Abs Neutrophils 3.7 10^3/uL N 1.5-7.7 Abs Lymphocytes 1.6 10^3/uL N 1.0-4.8 Abs Monocytes 0.6 10^3/uL N 0-0.8 Abs Eosinophils 0.1 10^3/uL N 0-0.6 Abs Basophils 0 10^3/uL N 0-0.2 Abs Nucleated RBC 0 10^3/uL N Neutrophil % 66 % N 38-83 Band % 1 % N 0-8 Lymphocytes % 20 % Low 25-47 Monocytes % 12 % N 0-13 Eosinophils % 1 % N 0-6 RBC Morphology Normal N Normal Laboratory test 06/21/2014 [facility] PSA Screening 0.764 ng/mL N 0-4.000 16 finding [address] [place] [address] [phone] LDL Cholesterol Direct 52 mg/dL N 17 Valproic Acid 52 g/mL N 50.0-100.0 18 Lipid Profile 06/21/2014 [facility] Triglycerides 207 mg/dL N 19 (Trig/Chol/HDL) [address] [place] [address] [phone] Cholesterol 98 mg/dL N 20 HDL Cholesterol 24.6 mg/dL N 21 LDL Cholesterol 32 mg/dL N 22 Laboratory 04/09/2014 [facility] Testosterone 258.44 N 240- 950 test finding [address] ng/[place] [address] [phone] Throat-Beta 01/25/2014 [facility] Throat Beta Strep (SEE NOTE) [address] [place] [address] [phone] Laboratory 06/25/2013 [facility] Acetaminophen < 10 Low 10-30 24 test finding [address] g/[place] [address] [phone] Alcohol < 10 mg/dL Less Than 10 25 Salicylate < 4.0 Less Than 30 TSH (Thyroid Stimulating Horm) 4.47 miu/mL 0.34-5.60 Comp Metabolic Panel 06/25/2013 [facility] Sodium 138 mmol/L 133-[address] [place] [address] [phone] Potassium 3.5 mmol/L 3.5-5.0 Chloride 106 mmol/L [...] Egfr Non- 87.7 >60 Egfr 112.8 >60 26 Urine Drug 06/25/2013 [facility] Amphetamine Ur None Detected None Detect SCR ED & [address] [place] [address] [phone] Barbiturates Urine Screen None Detected None Detect Benzodiazepine Urine Screen None Detected None Detect Urine Cannabinoids Screen None Detected None Detect Urine Cocaine Screen None Detected None Detect Urine Opiates Screen None Detected None Detect Urine Phencyclidine Screen None Detected None Detect 27 CBC Auto Diff 06/25/2013 [facility] White Blood 7.5 10^3/uL 4.8-10.[address] [place] [address] [phone] Red Blood Count 5.26 10^6/uL 4.0-5.4 Hemoglobin [...] 0-2 Nucleated Red Blood Cells % 0 Urinalysis 06/25/2013 [facility] Urine Color Yellow [address] [place] [address] [phone] Urine Appearance Clear Urine Specific Walker 1.022 1.010-1.030 Urine Esterase Negative Negative Urine Nitrate Negative Negative Urine Urobilinogen Negative E.U./dL Negative Urine Protein Negative mg/dL Negative Urine pH 7.0 5-9 Urine Blood Negative Negative Urine Ketones Negative mg/dL Negative Urine Bilirubin Negative Negative Urine Glucose Negative mg/dL Negative Laboratory test 01/23/2013 [facility] Testosterone 543.9 ng/dL 175-781 finding [address] [place] [address] [phone] Liver Function 01/23/2013 [facility] Total Protein 7.1 g/dL 6.2-8.1 Panel [address] [place] [address] [phone] Albumin 3.9 g/dL 3.6-5.4 Globulin 3.2 g/dL 2-4 Albumin/Globulin Ratio 1.2 1-3 Total Bilirubin 0.5 mg/dL 0.4-1.5 Direct Bilirubin 0.1 mg/dL 0.1-0.5 Indirect Bilirubin 0.4 mg/dL 0.3-1.0 Alkaline Phosphatase 55 U/L 30-110 Alt 50 U/L 14-54 Ast 37 U/L 12-42 CBC Auto Diff 01/23/2013 [facility] White Blood 9.6 10^3/uL 4.8-10.[address] [place] [address] [phone] Red Blood Count 5.39 10^6/uL 4.0-5.4 Hemoglobin [...] Nucleated RBC 0 10^3/uL Manual Differential 01/23/2013 [facility] Neutrophil % 76 % 38-83 [address] [place] [address] [phone] Band % 5 % 0-8 Lymphocytes % 12 % Low 25-47 Monocytes % 7 % 0-13 RBC Morphology Normal Normal Laboratory 12/31/2012 [facility] Hepatitis C Nonreactive Nonreactive test finding [address] [place] [address] [phone] Liver Function 12/31/2012 [facility] Total Protein 7.4 g/dL 6.2-8.1 Panel [address] [place] [address] [phone] Albumin 4.2 g/dL 3.6-5.4 Globulin 3.2 g/dL 2-4 Albumin/Globulin Ratio 1.3 1-3 Total Bilirubin 0.8 mg/dL 0.4-1.5 Direct Bilirubin 0.1 mg/dL 0.1-0.5 Indirect Bilirubin 0.7 mg/dL 0.3-1.0 Alkaline Phosphatase 59 U/L 30-110 Alt 39 U/L 14-54 Ast 35 U/L 12-42 Hepatitis B 12/31/2012 [facility] Hepatitis B Nonreactive Nonreactive Mahesh AB Titer [address] [place] [address] [phone] Hep B Surf AB Index < 0.10 28 Laboratory 12/31/2012 [facility] Hepatitis B Nonreactive Nonreactive test finding [address] [place] [address] Antigen [phone] Testosterone 405.4 ng/dL 175-781 CBC Auto Diff 11/03/2012 [facility] White Blood 6.9 10^3/uL 4.8-10.[address] [place] [address] [phone] Red Blood Count 5.29 10^6/uL 4.0-5.4 Hemoglobin [...] Red Blood Cells % 0.1 Lipid Profile 11/03/2012 [facility] Triglycerides 97 mg/dL 40 -200 (Trig/Chol/HDL) [address] [place] [address] [phone] Cholesterol 142 mg/dL Less than 200 HDL Cholesterol 37 mg/dL Low 40-60 29 Cholesterol/HDL Ratio 3.8 Average 1-4.44 LDL Cholesterol 85.6 mg/dL Less Than 100 30 Liver Function 11/03/2012 [facility] Total Protein 7.3 g/dL 6.2-8.1 Panel [address] [place], [place] [phone] Albumin 4.3 g/dL 3.6-5.4 Globulin 3.0 g/dL 2-4 Albumin/Globulin Ratio 1.4 1-3 Total Bilirubin 0.8 mg/dL 0.4-1.5 Direct Bilirubin 0.1 mg/dL 0.1-0.5 Indirect Bilirubin 0.7 mg/dL 0.3-1.0 Alkaline Phosphatase 46 U/L 30-110 Alt 53 U/L 14-54 Ast 54 U/L High 12-42 Laboratory test 11/03/2012 [facility] PSA Screening 0.6 ng/mL 0-4.0 [address] [place], [place] [id number] [phone] Testosterone 268.3 ng/dL 175-781 32 Laboratory 09/30/2012 [facility] Testosterone 293.0 ng/dL 175 -781 test finding [address] [place] [address] [phone] HIV 1/2 AB 09/01/2012 [facility] HIV 1 2 Nonreactive Nonreactive [address] [place] [address] [phone] CBC 02/02/2011 [facility] White Blood 5.8 CUMM 4.8-10.8 W/Electronic [address] [place] [address] [phone] Red Cell Count 4.67 CUMM 4.6-6.2 Hemoglobin [...] Abs Basophils 0 0-0.2 Lipid Panel 02/02/2011 [facility] Triglyceride 362 mg/dL High 40-[address] [place] [address] [phone] Cholesterol 154 mg/dL Less Than 200 34 High Density Lipoprotein 23 mg/dL Low 40-60 35 Cholesterol/HDL Ratio 6.70 AVERAGE High 1-4.97 Low Density Lipoprotein 59 mg/dL Less Than 100 36 Laboratory test 02/02/2011 [facility] Valproic Acid 19.8 Low 50-[address] (Depakene) g/[place] [address] [phone] CMP Panel 02/02/2011 [facility] Sodium 138 mmol/L 135-[address] [place] [address] [phone] Potassium 4.7 mmol/L 3.5-5.0 Chloride 105 mmol/L 101-111 Co2 (Carbon Dioxide) 27.0 mmol/L 22-32 Anion Gap 6.0 mmol/L 2-11 38 Glucose 77 mg/dL 70-100 BUN 9 mg/dL 6-24 Creatinine 0.90 mg/dL 0.50-1.40 One Over Creatinine 1.10 BUN/Creatinine Ratio 10.0 8-20 Calcium 9.7 mg/dL 8.1-9.9 Total Protein 7.5 GM/DL 6.2-8.1 Albumin 3.9 GM/DL 3.6-5.4 Globulin 3.6 GM/DL 2-4 Albumin/Globulin Ratio 1.1 1-3 Bilirubin Total 0.8 mg/dL 0.4-1.5 39 Alkaline Phosphatase 48 U/L 39-117 Alt (SGPT) 109 U/L High 17-63 Ast (Sgot) 55 U/L High 12-42 eGFR Non- 100.5 > 60 eGFR 129.2 > 60 40 CBC With 07/25/2010 [facility] White Blood 6.7 CUMM 4.8-10.8 Electronic Diff [address] [place] [address] [phone] Red Cell Count 4.46 CUMM Low 4.6-6.2 [...] Basophils 0 0-0.2 Comp Metabolic Panel 07/25/2010 [facility] Sodium 135 mmol/L 135-[address] [place] [address] [phone] Potassium 3.8 mmol/L 3.5-5.0 Chloride 104 mmol/L 101-111 Co2 (Carbon Dioxide) 27.0 mmol/L 22-32 Anion Gap 4.0 mmol/L 2-11 41 Glucose 93 mg/dL 70-100 42 BUN 9 mg/dL 6-24 Creatinine 0.90 mg/dL 0.50-1.40 One Over Creatinine 1.10 BUN/Creatinine Ratio 10.0 8-20 Calcium 9.5 mg/dL 8.1-9.9 Total Protein 7.1 GM/DL 6.2-8.1 Albumin 3.8 GM/DL 3.6-5.4 Globulin 3.3 GM/DL 2-4 Albumin/Globulin Ratio 1.2 1-3 Bilirubin Total 0.7 mg/dL 0.4-1.5 43 Alkaline Phosphatase 48 U/L 39-117 Alt (SGPT) 63 U/L 17-63 Ast (Sgot) 32 U/L 12-42 eGFR Non- 107.6 > 60 eGFR 130.2 > 60 44 Vitamin D, 25 07/25/2010 [facility] 25-Hydroxy Vitamin <4.0 ng/ mL () Hydroxy [address] [place] [address] [phone] 25-Hydroxy Vitamin D3 36 ng/mL () 25-Hydroxy Vitamin D Total 36 ng/mL () 45 Iron & Iron Binding 07/25/2010 [facility] Iron Total 58 g/dL 45-[address] [place] [address] [phone] Unsaturated Iron Binding 260 g/dL Total Iron Binding Capacity 318 g/dL 250-450 % Iron Saturation 18 % 15-55 Laboratory test 04/25/2010 [facility] Valproic Acid 53.3 g/mL 50-[address] (Depakene) [place] [address] [phone] Vitamin B12 And 09/23/2009 [facility] Vitamin B12 534 pg/mL 180-914 47 Folate Serum [address] [place] [address] [phone] Folic Acid 10.2 NG/ML 2-16 Vitamin D, 25 09/23/2009 [facility] 25-Hydroxy Vitamin <4.0 ng/ mL () Hydroxy [address] [place] [address] [phone] 25-Hydroxy Vitamin D3 22 ng/mL () 25-Hydroxy Vitamin D Total 22 ng/mL Abnormal () 48 Laboratory test finding 09/23/2009 [facility] Glucose 81 mg/dL 70-100 49 [address] [place] [address] [phone] Valproic Acid (Depakene) 98.2 g/mL 50-100 50 Lipid Profile 09/23/2009 [facility] Triglyceride 286 mg/dL High 40-200 (Trig/Chol/HDL) [address] [place] [address] [phone] Cholesterol 185 mg/dL Less Than 200 51 High Density Lipoprotein 20 mg/dL Low 40-60 52 Cholesterol/HDL Ratio 9.25 AVERAGE High 1-4.97 Low Density Lipoprotein 108 mg/dL High Less Than 100 53 Laboratory 09/23/2009 [facility] Syphilis IgG NON-REACTIVE Nonreactive [address] [place], [place] [address] [phone] Laboratory 05/10/2009 [facility] Glucose 81 mg/dL 70-100 55 test finding [address] [place] [address] [phone] Lipid 05/10/2009 [facility] Triglyceride 203 mg/dL High 40- [address] (Trig/Chol/[place] [address] DL) [phone] Cholesterol 182 mg/dL Less Than 200 56 High Density Lipoprotein 25 mg/dL Low 40-60 57 Cholesterol/HDL Ratio 7.28 AVERAGE High 1-4.97 Low Density Lipoprotein 116 mg/dL High Less Than 100 58 Liver Function 05/10/2009 [facility] Total Protein 7.1 GM/DL 6.2-8.[address] [place] [address] [phone] Albumin 3.8 GM/DL 3.6-5.4 Globulin 3.3 GM/DL 2-4 Albumin/Globulin Ratio 1.2 1-3 Bilirubin Total 0.6 mg/dL 0.4-1.5 59 Bilirubin Direct 0.0 mg/dL Low 0.1-0.5 Indirect Bilirubin (SEE NOTE) mg/dL 0.1-0.75 60 Alkaline Phosphatase 40 U/L 39-117 Alt (SGPT) 53 U/L 17-63 Ast (Sgot) 33 U/L 12-42 Laboratory 05/10/2009 [facility] Valproic Acid 98.0 g/mL 50 -[address] (Depakene) [place] [address] [phone] DS3 09/17/2008 [facility] Amphetamines NONE None [address] Urine [place] [address] [phone] Barbituates Urine Screen NONE DETECTED None Detect Benzodiazepine Ur Screen NONE DETECTED None Detect Cannabinoid Urine Screen NONE DETECTED None Detect Cocaine Metabolites Urine NONE DETECTED None Detect Opiates Urine Screen NONE DETECTED None Detect PCP Urine Screen NONE DETECTED None Detect 62 CBC With Manual 09/17/2008 [facility] White Blood 8.9 CUMM 4.8-10.[address] [place] [address] [phone] Red Cell Count 5.24 CUMM 4.6-6.2 Hemoglobin [...] Count 6.7 RBC Morphology NORMAL Laboratory test 09/17/2008 [facility] Alcohol Stat < 10.0 None Detected [address] mg/[place] [address] [phone] TSH 2.16 MIU/ML 0.34-5.60 Basic Metabolic Panel 09/17/2008 [facility] Sodium 136 mmol/L 135-[address] [place] [address] [phone] Potassium 3.9 mmol/L 3.5-5.0 Chloride 107 mmol/L 101-111 Co2 (Carbon Dioxide) 24.0 mmol/L 22-32 Anion Gap 5.0 mmol/L 2-11 64 Glucose 99 mg/dL 70-100 65 BUN 10 mg/dL 6-24 Creatinine 0.90 mg/dL 0.50-1.40 One Over Creatinine 1.10 BUN/Creatinine Ratio 11.1 8-20 Calcium 9.6 mg/dL 8.1-9.9 66 1 The urine specimen was tested at the listed cutoffs: Drug class test level (ng/mL) Amphetamines 500 Barbiturates 200 Benzodiazepine metabolites 200 Cocaine metabolites 150 Cannabinoids 50 Opiates 300 Pcp 25 Specimen was received without chain of custody. Results should be used for medical purposes only. 2 Because ethnic data is not always readily [...] 15-29 5 Kidney failure <15 (or dialysis) 3 Therapeutic concentration: <50 ug/mL Toxic concentration: >120 ug/mL 4 Because ethnic data is not always readily [...] 15-29 5 Kidney failure <15 (or dialysis) 5 Specimen hemolyzed, spoke to Lucie for recollect. 6 Specimen hemolyzed, spoke to Lucie for recollect. 7 Therapeutic concentration: <50 ug/mL Toxic concentration: >120 ug/mL 8 The urine specimen was tested at the listed cutoffs: Drug class test level (ng/mL) Amphetamines 500 Barbiturates 200 Benzodiazepine metabolites 200 Cocaine metabolites 150 Cannabinoids 50 Opiates 300 Pcp 25 Specimen was received without chain of custody. Results should be used for medical purposes only. 9 Because ethnic data is not always readily [...] 15-29 5 Kidney failure <15 (or dialysis) 10 Therapeutic concentration: <50 ug/mL Toxic concentration: >120 ug/mL 11 ADDITIONAL INFORMATION Testing performed by [facility]. 12 ADDITIONAL INFORMATION Testing performed by Liquid Chromatography-Tandem Mass Spectrometry (LC-MS/MS). Test Performed by: [address] [address] Calculus Tutor: Trino Eugene II, M.D., Ph.D. 13 FASTING 10 HOUR 14 FASTING 10 HOUR 15 Because ethnic data is not always readily [...] 15-29 5 Kidney failure <15 (or dialysis) 16 Serum levels of PSA measured using the [employer] DXI Hybritech immunoassay should not be interpreted as absolute evidence of the presence or absence of disease. The PSA value should be used in conjunction with other pertinent clinical diagnostic procedures. The values obtained with different assay methods or kits cannot be used interchangeably. 17 Desirable <100 Near Optimal 100-129 Borderline high 130-159 High 160-189 Very High >189 18 FASTING 10 HOUR 19 Desirable <150 Borderline high 150-199 High 200-499 Very High >500 20 Desirable <200 Borderline high 200-239 High >239 21 Low <40 Desirable: 40-60 High: >60 22 Desirable <100 Near Optimal 100-129 Borderline high 130-159 High 160-189 Very High >189 23 RUN DATE: 01/28/14 [facility] LAB LIVE PAGE 1 RUN TIME: [address] [place] [id number] Specimen Inquiry Name: OSITO FERNANDEZ : [address]: Ani Knutson MD Acct: [id number] Unit: [id number] AGE: 33 Location: [facility] Re01/25/14 SEX: M Status: DEP ER SPEC: [id number] MELANIE: 01/25/[address] [facility] [address]: Ani Knutson MD REQ: [id number] RECD: 01/26/14 STATUS: KULDEEP MEYER DR: Rosas Osborn MD _ SOURCE: THROAT SPDESC: ORDERED: Throat Beta Str Procedure Result Verified Site Throat Beta Strep Culture Final 01/28/14- 0858 ML Negative For Group A Beta Streptococcus END OF REPORT * ML=Testing performed at Main Lab DEPARTMENT OF PATHOLOGY, [address] [place] [address] John Fowler M.D. Director [facility] # [id number] 24 Toxic levels: greater than 150 mcg/ml @ 4hr post ingest Greater than 50 mcg/ml @ 12hr post ingest The detection limit for acetaminophen is 10.0 mcg/ml . Values less than 10.0 mcg/ml cannot be accurately measured. 25 The detection limit for Ethanol is 10.0 mg/dl . Values less than 10.0 mg/dl cannot be accurately measured. 26 Because ethnic data is not always readily [...] 15-29 5 Kidney failure <15 (or dialysis) 27 The urine specimen was tested at the listed cutoffs: Drug class test level (ng/ml) Amphetamines 300 Barbituates 200 Benzodiazepine metabolites 200 Cocaine metabolites 300 Cannabinoids 25 Opiates 200 Pcp 25 This is a screening procedure. Positive results are not confirmed. Specimen was received without chain of custody. Results should be used for medical purposes only. 28 The World Health Organization (WHO) Hepatitis B Immunoglobulin 1st International Reference Preparation (1976): The accepted criteria for immunity to HBV is anti-HBs activity greater than or equal to 10 mIU/mL. An Index Value of 1.00 is equivalent to 10 mIU/mL. Samples with an Index Value of 1.00 or greater are considered reactive (protective) in accordance with the CDC guidelines. 29 HDL Interpretation: Undesirable: High Risk: Less than 40 MG/DL Desirable: Low Risk: Greater than 60 MG/DL 30 LDL Interpretation: Low Risk Optimal Level: LDL Less than 100 MG/DL Near or Above Optimal: LDL 100-129 MG/DL Borderline High Risk: LDL 130-159 MG/DL High Risk: LDL 160-189 MG/DL Very High Risk: LDL Greater than 189 MG/DL 31 Serum levels of PSA measured using the [employer] DXI Hybritech immunoassay should not be interpreted [...] methods or kits cannot be used interchangeably. 32 PT IS FASTING 33 It is recognized that currently available assays [...] 95% confidence interval of 99.78 to 99.96%. 34 CHOLESTEROL INTERPRETATION: Desirable: Less than 200 MG/DL Borderline-High Risk: 200-239 MG/DL High-Risk: 240 MG/DL and over 35 HDL INTERPRETATION: Undesirable: High Risk: Less than 40 MG/DL Desirable: Low Risk: Greater than 60 MG/DL 36 LDL INTERPRETATION: Low Risk Optimal Level: LDL Less than 100 MG/DL Near or Above Optimal: LDL 100-129 MG/DL Borderline High Risk: LDL 130-159 MG/DL High Risk: LDL 160-189 MG/DL Very High Risk: LDL Greater than 189 MG/DL 37 The detection limit for VALPROIC ACID is 10.0 mcg/ml . Values less than 10.0 mcg/ml cannot be accurately measured. . 38 Anion gap measurement may be of limited value in the presence of any alkalosis, especially in a combined acid base disorder. . 39 A metabolite of Naproxen, O-desmethylnaproxen, has been shown to interfere with the Jendrassik-Ages method for measuring total bilirubin. Samples from patients who have taken Naproxen have shown spurious elevation in total bilirubin levels. 40 Because ethnic data is not always readily [...] 15-29 5 Kidney failure <15 (or dialysis) 41 Anion gap measurement may be of limited value in the presence of any alkalosis, especially in a combined acid base disorder. . 42 Note change in reference range as of 05/06/08. The change was based on recommendations from the [place] [employer]. 43 A metabolite of Naproxen, O-desmethylnaproxen, has been shown to interfere with the Jendrassik-Ages method for measuring total bilirubin. Samples from patients who have taken Naproxen have shown spurious elevation in total bilirubin levels. 44 Because ethnic data is not always readily [...] 15-29 5 Kidney failure <15 (or dialysis) 45 -- REFERENCE VALUE -- 25-HYDROXY D TOTAL (D2+D3) Optimum levels in the normal population are 25-80 Test Performed by: [facility] Dpt of Lab Med and Pathology [address] [place] [address] Calculus Tutor: Waqar Arredondo III, M.D. 46 The detection limit for VALPROIC ACID is 10.0 mcg/ml . Values less than 10.0 mcg/ml cannot be accurately measured. . 47 FASTING 48 Interpretation: 10-24 (mild to moderate deficiency) -- REFERENCE VALUE -- 25-HYDROXY D TOTAL (D2+D3) Optimum levels in the normal population are 25-80 Test Performed by: [facility] Dpt of Lab Med and Pathology [address] [place] [address] Calculus Tutor: Waqar Arredondo III, M.D. 49 Note change in reference range as of 05/06/08. The change was based on recommendations from the [place] [employer]. 50 The detection limit for VALPROIC ACID is 10.0 mcg/ml . Values less than 10.0 mcg/ml cannot be accurately measured. . 51 CHOLESTEROL INTERPRETATION: Desirable: Less than 200 MG/DL Borderline-High Risk: 200-239 MG/DL High-Risk: 240 MG/DL and over 52 HDL INTERPRETATION: Undesirable: High Risk: Less than 40 MG/DL Desirable: Low Risk: Greater than 60 MG/DL 53 LDL INTERPRETATION: Low Risk Optimal Level: LDL Less than 100 MG/DL Near or Above Optimal: LDL 100-129 MG/DL Borderline High Risk: LDL 130-159 MG/DL High Risk: LDL 160-189 MG/DL Very High Risk: LDL Greater than 189 MG/DL 54 Warning: A positive result is not useful for establishing a diagnosis of syphilis. In most situations, such a result may reflect a prior treated infection; a negative result can exclude a diagnosis of syphilis except for incubating or early primary disease. 55 Note change in reference range as of 05/06/08. The change was based on recommendations from the [place] [employer]. 56 CHOLESTEROL INTERPRETATION: Desirable: Less than 200 MG/DL Borderline-High Risk: 200-239 MG/DL High-Risk: 240 MG/DL and over 57 HDL INTERPRETATION: Undesirable: High Risk: Less than 40 MG/DL Desirable: Low Risk: Greater than 60 MG/DL 58 LDL INTERPRETATION: Low Risk Optimal Level: LDL Less than 100 MG/DL Near or Above Optimal: LDL 100-129 MG/DL Borderline High Risk: LDL 130-159 MG/DL High Risk: LDL 160-189 MG/DL Very High Risk: LDL Greater than 189 MG/DL 59 A metabolite of Naproxen, O-desmethylnaproxen, has been shown to interfere with the Jenshavonik-Ages method for measuring total bilirubin. Samples from patients who have taken Naproxen have shown spurious elevation in total bilirubin levels. 60 UNABLE TO CALCULATE IND.BILI D.BILI IS <0.1 61 The detection limit for VALPROIC ACID is 10.0 mcg/ml . Values less than 10.0 mcg/ml cannot be accurately measured. . 62 THE URINE SPECIMEN WAS TESTED AT THE LISTED CUTOFFS: DRUG CLASS TEST LEVEL (NG/ML) AMPHETAMINES 300 BARBITUATES 200 BENZODIAZEPINE METABOLITES 200 COCAINE METABOLITES 300 CANNABINOIDS 25 OPIATES 200 PCP 25 THIS IS A SCREENING PROCEDURE. POSITIVE RESULTS ARE NOT CONFIRMED. SPECIMEN WAS RECEIVED WITHOUT CHAIN OF CUSTODY. RESULTS SHOULD BE USED FOR MEDICAL PURPOSES ONLY. . 63 The detection limit for ETHANOL is 10.0 mg/dl . Values less than 10.0 mg/dl cannot be accurately measured. . 64 Anion gap measurement may be of limited value in the presence of any alkalosis, especially in a combined acid base disorder. . 65 Note change in reference range as of 05/06/08. The change was based on recommendations from the [place] [employer]. 66 Please note change in reference range effective 08 . Procedures Date Code Description Status 07/01/2013 06500 ECHO Transthorasic Realtime 2D W Doppler & Color Flow Hosp Completed Encounters Type Date Location Provider Dx Diagnosis Office Visit 12/08/2018 [facility] Internal Charles Forrester NP M25.511 Pain in right 4:20p Medicine shoulder Office Visit 07/31/2018 Orthopedic Armando Baltazar, M76.821 Posterior tibial 11:00a [facility] AT tendinitis, right [place] leg S93.601A Unspecified sprain of right foot, initial encounter M21.41 Flat foot [pes planus] (acquired), right foot Office Visit 06/24/2018 [facility], T38.7x5A Adverse effect 8:00a Endocrinology of MD of androgens and [facility] anabolic congeners, init F25.0 Schizoaffective disorder, bipolar type Z68.31 Body mass index (BMI) 31.0-31.9, adult Office Visit 06/18/2018 8:30a [facility] Internal Maria G T38.7x5A Adverse effect of Medicine - Shannon Estrella androgens and [place] anabolic congeners, init Office Visit 05/21/2018 10:00a [facility] Internal Crow Wilson M54.5 Low back pain Medicine - Shannon Andres [place] Office Visit 02/24/2018 10:10a [facility] Internal Rosas Sharpe L21.9 Seborrheic Medicine - Tbdionisio Osborn, dermatitis, Rd Shannon,FACP unspecified Office Visit 11/20/2017 3:40p [facility] Internal Zsofia E66.9 Obesity, Medicine - [place] Bubba, 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 Office Visit 06/21/2014 2:00p [facility] Internal Rosas Sharpe 257.2 Testicular Medicine Anurag, Rajwinderfunction Roya Ortega,FACP 296.89 Bipolar Disorder NEC 272.0 Hypercholesterolemia Pure V76.44 Screening For Malig Jamarcus Prostate Office Visit 06/07/2014 4:00p [facility] Internal Rosas Sharpe 257.2 Testicular Medicine Shannon Osborn,FACP Hypofunction Other 783.1 Weight Gain Abnormal v04.81 Need For Prophylactic Vaccination & Inoculation/Influenza Office Visit 04/22/2014 [facility] Internal Rosas Sharpe 257.2 Testicular 4:00p Medicine Montrell Osborn M.D.,FACP Office Visit 03/17/2014 Orthopedic Jennifer 842.13 Sprains & Strains 2:30p Services Of Curtis Mahoney M.D. Hand Interphalangeal AT [place] ([facility]) Office Visit 06/12/2013 [facility] Internal Yashira 296.89 Bipolar Disorder NEC 3:00p Medicine Sg, N.PPrimo 257.2 Testicular Hypofunction Other v04.81 Need For Prophylactic Vaccination & Inoculation/Influenza Office Visit 12/31/2012 1:00p [facility] Internal Rosas Sharpe 257.2 Testicular Medicine Shannon Osborn,FACP Hypofunction Other 573.3 Hepatitis Unspec Office Visit 11/05/2012 9:10a [facility] Internal Rosas Sharpe 257.2 Testicular Medicine Shannon Osborn,FACP Hypofunction Other 573.3 Hepatitis Unspec Office Visit 10/07/2012 9:50a [facility] Internal Nurse Visit 257.2 Testicular Medicine [place] Hypofunction Other Office Visit 10/02/2012 2:40p [facility] Internal Rosas Sharpe 257.2 Testicular Medicine Anurag, Hypofunction Roya Ortega,FACP 472.0 Rhinitis Chronic Office Visit 09/01/2012 3:00p [facility] Internal Rosas Sharpe 257.2 Testicular Medicine Shannon Osborn,FACP Hypofunction Other V58.83 Encounter For Therapeutic Drug Monitoring v04.81 Need For Prophylactic Vaccination & Inoculation/Influenza Office Visit 10/03/2011 [facility] Internal Inocencia V70.8 Examination 1:00p Medicine Emmy N.PPrimo [facility] Other Spec 296.89 Bipolar Disorder NEC 280.9 Iron Deficiency Anemia Unspec 268.9 Vitamin D Deficiency Unspec 477.9 Rhinitis Allergic Cause Unspec 272.1 Hypertriglyceridemia Pure Office Visit 09/01/2010 1:40p DO Not Use Curtis Sharpe 680.3 Carbuncle & AT Claudia Osborn M.D.,FACP Furuncle Upper Arm & Forearm Office Visit 07/28/2010 10:40a DO Not Use Curtis Sharpe 333.94 Restless Leg AT Claudia Osborn M.D.,FACP Syndrome 268.9 Vitamin D Deficiency Unspec 280.9 Iron Deficiency Anemia Unspec Office Visit 03/30/2010 9:40a DO Not Use [employer] AT Rosas Sharpe 786.59 Pain Chest Claudia Osborn M.D.,FACP Other 327.27 Central Sleep Apnea In Conditions Classified Elsewhere 296.89 Bipolar Disorder NEC 607.84 Impotence Organic Origin Office Visit 01/23/2010 9:40a DO Not Use [employer] Officer Rosas Sharpe 812.40 FX Humerus AT Claudia Osborn M.D.,FACP Lower End Closed Unspec Part 268.9 Vitamin D Deficiency Unspec Office Visit 09/20/2009 9:40a DO Not Use [employer] Officer AT Rosas Osborn, 780.93 Memory Loss Claudia Ortega,FACP 278.00 Obesity Unspec Office Visit 08/03/2009 11:40a DO Not Use [employer] Officer Rosas Sharpe 278.00 Obesity Unspec AT Claudia Osborn M.D.,FACP 296.62 Bipolar I Disorder Current Mixed Moderate Office Visit 05/04/2009 3:00p DO Not Use [employer] Officer Rosas Sharpe 296.62 Bipolar I AT Claudia Osborn M.D.,FACP Disorder Current Mixed Moderate 812.21 FX Humerus Shaft Closed 278.00 Obesity Unspec Office Visit 04/12/2009 11:20a DO Not Use [employer] AT Rosas Osborn, 723.1 Cervicalgia Claudia Ortega,FACP 296.89 Bipolar Disorder NEC Office Visit 07/14/2008 3:00p DO Not Use [employer] Officer Rosas Sharpe 300.00 Anxiety State AT Claudia Osborn M.D.,FACP Unspec 297.8 Paranoid States Other Spec Office Visit 03/30/2008 2:00p DO Not Use [employer] Officer Princess Tyler PA 847.0 Sprains & AT [facility] Strains Neck 300.00 Anxiety State Unspec Plan of Treatment 01/23/2019 - Charles Forrester NPZ02.0 Encounter for examination for admission to educational instiComments:I will write the letter we discussed and send it in next week.Follow up:CHELSEY: so we can mail letter to [facility].
[2019-02-15 22:35] LABS: Acetaminophen < 15 mcg/mL; Alcohol < 10 mg/dL (<10); Salicylate < 2.50 mg/dL (<30)
[2019-02-15 22:51] LABS: TSH (Thyroid Stimulating Horm) 1.29 mcIU/mL (0.34-5.60)
--- NOTE | 2019-02-16 02:30 | ED ---
Progress - Progress Note Progress Note: This patient is a sign-out from GEOVANNY Madison to Sourav Pandya MD at 0230 on 02/16/19 at shift change pending MHE and disposition. Course/Dx - Course Course Of Treatment: This patient is a sign-out from GEOVANNY Madison to Sourav Pandya MD at 0230 on 02/16/19 at shift change pending MHE and disposition. After MHE, patient will be discharged with dx of adjustment disorder. Patient understands and agrees with this plan. - Diagnoses Provider Diagnoses: Adjustment disorder Discharge - Sign-Out/Discharge Documenting (check all that apply): Patient Departure - Discharge, Receiving Sign-Out Receiving patient FROM: Samy Garcia - At shift change Patient Received Moderate/Deep Sedation with Procedure: No - Discharge Plan Condition: Stable Disposition: HOME Patient Education Materials: Stress (ED) [place] [facility] [place] [place]Outside] Additional Instructions: Per completion of a mental health evaluation, you are cleared for release and do not require inpatient psychiatric hospitalization at this time. Please go to nearest emergency room or call 911 if safety concerns arise or condition worsens. You need to follow up with outpatient counseling services: [facility] [phone] [place] [address] Walk-in hours are Saturday - Saturday, 9am - 2:30pm. Important Phone Numbers: [facility] ph:[phone] Suicide Prevention and Crisis Services ph:[phone] National Suicide Prevention Lifeline ph:193-798-RHEU (7617) [facility] ph:[phone] [facility] ([facility]) ph:[phone] Alcohol and Drug Dental Equipment Technician (ADC) ph:[phone] Alcoholics Anonymous ph:[phone] [facility] ph:[phone] [facility] Police ph:[phone] - Billing Disposition and Condition Condition: STABLE Disposition: Home - Attestation Statements Document Initiated by Scribe: Yes Documenting Scribe: Aubrey Britt Provider For Whom Scribe is Documenting (Include Credential): Sourav Pandya MD Scribe Attestation: Aubrey Zaragoza, scribed for Sourav Pandya MD on 02/16/19 at 8353. Scribe Documentation Reviewed: Yes Provider Attestation: The documentation as recorded by the scribe, Aubrey Britt accurately reflects the service I personally performed and the decisions made by me, Sourav Pandya MD Status of Scribe Document: Viewed
[2019-02-16 03:20] VITALS: BP 141/98
== END 2019-02-16 03:20 | disposition home or self-care (01) ==
LOC: ED 21:25
DX: F43.20 Adjustment disorder, unspecified (principal); R45.851 Suicidal ideations; F32.9 Major depressive disorder, single episode, unspecified
CPT/HCPCS: 36415; 80053; 80307; 80320; 80329; 81003; 84443; 85025; 99284; G0480

== ENCOUNTER 2019-05-24 16:49 | Emergency (ER) | payer MEDICARE, MEDICAID ==
[2019-05-24 17:05] VITALS: BP 130/86
--- NOTE | 2019-05-24 17:29 | UC ---
Hip/Pelvis Pain - HPI Summary HPI Summary: Pt presents with c/o right hip pain that began 4 weeks ago. Pt states that he likes to "work out" and does " lifts". Pt states that his right hip began to hurt ~ 4 weeks ago with strenuous exercise and now has stopped "working his legs" and still has right hip pain. Has not taken any NSAIDS for pain management. He denies injury current or past. denies rash or open sores. - History Of Current Complaint Chief Complaint: UCLowerExtremity Stated Complaint: RIGHT HIP CONCERN Time Seen by Provider: 05/24/19 17:08 Hx Obtained From: Patient Onset/Duration: Gradual Onset, Lasting Weeks - 4, Still Present Timing: Constant Severity Initially: Mild Severity Currently: Moderate Pain Intensity: 7 Location: Discrete At: - right hip and lower back Character Of Pain: Dull, Aching, Stiffness Aggravating Factor(s): Movement, Weight Bearing Alleviating Factor(s): Rest, Position Associated Signs And Symptoms: Positive: Other - hip pain - Risk Factors Septic Arthritis Risk Factor: Negative - Allergies/Home Medications Allergies/Adverse Reactions: Allergies Allergy/AdvReac Type Severity Reaction Status Date / Time ziprasidone [From Geodon] Allergy Unknown Verified 05/24/19 17:05 Reaction Details PMH/Surg Hx/FS Hx/Imm Hx Previously Healthy: Yes - Surgical History Surgical History: Yes Surgery Procedure, Year, and Place: Right Fifth Finger Tendon Repair, ~2002, [place] - Family History Known Family History: Positive: None, Cardiac Disease, Hypertension Negative: Diabetes, Blood Disorder - Social History Occupation: Disabled Lives: With Family Alcohol Use: Occasionally Alcohol Amount: "once every ccouple of weeks" Substance Use Type: None Smoking Status (MU): Never Smoked Tobacco Type: eCigarettes Have You Smoked in the Last Year: Yes - vaping - Immunization History Most Recent Influenza Vaccination: this fall of 2012, unable to recall specific date. Most Recent Tetanus Shot: unable to recall Most Recent Pneumonia Vaccination: unable to recall Hx Tetanus, Diphtheria Vaccination: No - unsure when last date Review of Systems All Other Systems Reviewed And Are Negative: Yes Constitutional: Positive: Negative Skin: Positive: Negative Eyes: Positive: Negative ENT: Positive: Negative Respiratory: Positive: Negative Cardiovascular: Positive: Negative Gastrointestinal: Positive: Negative Genitourinary: Positive: Negative Motor: Positive: Negative Neurovascular: Positive: Negative Musculoskeletal: Positive: Arthralgia - right hip, Myalgia - right hip Neurological: Positive: Negative Psychological: Positive: Negative Is Patient Immunocompromised?: No Physical Exam Triage Information Reviewed: Yes Appearance: Well-Appearing, No Pain Distress Vital Signs: Initial Vital Signs Temp 98.4 F 05/24/19 17:00 Pulse 80 05/24/19 17:00 Resp 16 05/24/19 17:00 BP 130/86 05/24/19 17:00 Pulse Ox 99 05/24/19 17:00 Vital Signs Reviewed: Yes Eye Exam: Normal ENT: Positive: Hearing grossly normal Dental Exam: Normal Neck exam: Normal Respiratory: Positive: No respiratory distress Musculoskeletal Exam: Normal, Other - c/o pain with ROM Musculoskeletal: Positive: Strength Intact, ROM Intact Neurological Exam: Normal Psychological Exam: Normal Skin Exam: Normal Hip Injury Course/Dx - Course Course Of Treatment: I discussed with the pt the need to f/u with either Dr. Baltazar and/or Dr. Reed for further evaluation and treatment. I discussed with the pt to stop doing activities that are painful and to engage in physical exercises that did not place stress on right hip. P tverbalized understanding and agreed to plan of care. - Differential Dx/Diagnosis Differential Diagnosis/HQI/PQRI: Arthritis, Bursitis, Sciatica, Tenosynovitis Provider Diagnosis: Right hip pain Discharge ED - Sign-Out/Discharge Documenting (check all that apply): Patient Departure All imaging exams completed and their final reports reviewed: No Studies - Discharge Plan Condition: Stable Disposition: HOME Patient Education Materials: Safe Use of NSAIDs (ED), Hip Pain (ED) Referrals: Armando Baltazar MD [Medical Doctor] - As Soon As Possible Kusum Reed MD [Medical Doctor] - As Soon As Possible Charles Forrester NP [Primary Care Provider] - If Needed - Billing Disposition and Condition Condition: STABLE Disposition: Home
== END 2019-05-24 17:38 | disposition home or self-care (01) ==
LOC: UCCORT 16:49
DX: M25.551 Pain in right hip (principal); M54.5 Low back pain; Z88.8 Allergy status to other drugs, medicaments and biological substances
CPT/HCPCS: 99211; G0463

== ENCOUNTER 2019-07-16 16:08 | Emergency (ER) | payer MEDICARE, MEDICAID ==
[2019-07-16 16:28] VITALS: BP 148/83
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
[2019-07-18 17:26] LABS: Herpes Source PENIS
--- NOTE | 2019-07-19 07:19 | UC ---
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 Nursing to call patient inform the patient of the results. This is a new diagnosis for the patient I have called and valacyclovir 1 g by mouth twice a day for 10 days. Patient is to follow-up his primary care doctor in the meantime to facilitate long-term treatment. Course/Dx - Diagnoses Provider Diagnoses: Laceration of penis Discharge ED - Sign-Out/Discharge Documenting (check all that apply): Patient Departure All imaging exams completed and their final reports reviewed: No Studies - Discharge Plan Condition: Stable Disposition: HOME Prescriptions: DOXYcycline CAP(*) [DOXYcycline 100MG CAP(*)] 100 mg PO BID #14 cap Valacyclovir HCl [Valacyclovir] 1 gm PO BID #20 tab Patient Education Materials: Laceration Without Closure (ED) Referrals: Charles Forrester NP [Primary Care Provider] - Additional Instructions: FOLLOW UP WITH YOUR DOCTOR IF NOT COMPLETELY IMPROVED. GET REEVALUATED SOONER IF NOT IMPROVING OR YOUR CONDITION WORSENS OR ANY QUESTIONS OR CONCERNS. - Billing Disposition and Condition Condition: STABLE Disposition: Home
[2019-07-20 19:17] LABS: Chlamydia trachomatis NAA Negative (Negative); Neisseria gonorrhoeae (GC) NAA Negative (Negative)
== END 2019-07-16 16:56 | disposition home or self-care (01) ==
LOC: UCCORT 16:08
DX: S31.21XA Laceration without foreign body of penis, initial encounter (principal); B00.9 Herpesviral infection, unspecified; Z88.8 Allergy status to other drugs, medicaments and biological substances; X58.XXXA Exposure to other specified factors, initial encounter; Y92.9 Unspecified place or not applicable
CPT/HCPCS: 81003; 87086; 87491; 87529; 87591; 99212; G0463

== ENCOUNTER 2019-07-25 21:37 | Emergency (ER) | payer MEDICARE, MEDICAID ==
[2019-07-25 22:09] LABS: ABS Eosinophils 0.2 10^3/ul (0-0.6); ABS Lymphocytes 2.8 10^3/ul (1.0-4.8); ABS Monocytes 0.6 10^3/ul (0-0.8); ABS Neutrophils 3.6 10^3/ul (1.5-7.7); Eosinophil % 2.9 %; Hematocrit 44 % (42-52); Hemoglobin 15.2 g/dL (14.0-18.0); Lymphocyte % 38.2 %; Mean Corpuscular HGB Conc 35 g/dL (31-36); Mean Corpuscular Hemoglobin 29 pg (27-31); Mean Corpuscular Volume 83 fL (80-94); Mean Platelet Volume 9.6 fL (7.4-10.4); Nucleated Red Blood Cells % 0.2; Platelet Count 251 10^3/uL (150-450); Red Blood Count 5.32 10^6 /uL (4.18-5.48); Red Cell Distribution Width 15 % (10-15); White Blood Count 7.3 10^3/uL (3.5-10.8)
[2019-07-25 22:26] LABS: ALT 23 U/L (7-52); AST 23 U/L (13-39); Albumin 4.3 g/dL (3.2-5.2); Albumin/Globulin Ratio 1.4 (1-3); Alkaline Phosphatase 35 U/L (34-104); Anion Gap 6 mmol/L (2-11); BUN/Creatinine Ratio 16.3 (8-20); Blood Urea Nitrogen 20 mg/dL (6-24); CO2 Carbon Dioxide 30 mmol/L (22-32); Calcium 9.4 mg/dL (8.6-10.3); Chloride 100 mmol/L (101-111); EGFR African American 80.6 (>60); EGFR Non-African American 66.6 (>60); Glucose 86 mg/dL (70-100); Potassium 3.7 mmol/L (3.5-5.0); Sodium 136 mmol/L (135-145); Total Protein 7.3 g/dL (6.4-8.9)
[2019-07-25 22:31] LABS: Acetaminophen < 15 mcg/mL; Alcohol < 10 mg/dL (<10); Salicylate < 2.50 mg/dL (<30)
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
[2019-07-25 22:46] LABS: TSH (Thyroid Stimulating Horm) 6.76 mcIU/mL (0.34-5.60)
[2019-07-25 23:09] LABS: Urine Appearance Clear; Urine Bilirubin Negative (Negative); Urine Blood Negative (Negative); Urine Color Yellow; Urine Glucose Negative (Negative); Urine Ketones Negative (Negative); Urine Nitrite Negative (Negative); Urine Protein Negative (Negative); Urine Specific Gravity 1.006 (1.010-1.030); Urine Urobilinogen Negative (Negative)
[2019-07-25 23:25] LABS: Urine Benzodiazepine Screen None Detected (None Detect); Urine Opiates Screen None Detected (None Detect)
[2019-07-26 00:30] VITALS: BP 152/103
[2019-07-26] MEDS ORDERED: DOXYcycline CAP(*) 100 MG PO SCH (09:00)
[2019-07-26] MEDS ORDERED: Divalproex ER TAB(*) 500 MG PO SCH (09:00)
== END 2019-07-26 00:26 | disposition home or self-care (01) ==
LOC: ED 21:37
DX: F43.20 Adjustment disorder, unspecified (principal); F25.9 Schizoaffective disorder, unspecified; Z87.891 Personal history of nicotine dependence; Z79.899 Other long term (current) drug therapy; Z88.8 Allergy status to other drugs, medicaments and biological substances
CPT/HCPCS: 36415; 80053; 80307; 80320; 80329; 81003; 84443; 85025; 99284; G0480

== ENCOUNTER 2019-10-12 12:49 | Emergency (ER) | payer MEDICARE, MEDICAID ==
--- OUTSIDE RECORDS SUMMARY | 2019-10-12 12:57 | XMS REPORT ---
:1980 Author Organization [facility] Care Team Providers Name Role Phone Carolin Barksdale Primary Care Physician Unavailable Allergies, Adverse Reactions, Alerts Allergy Code CodeSystem Reaction Severity Criticality Status Start Substance Date Moderate Medications Medication Medication Medication Start Stop Route Dose Status Fill Code CodeSystem Date Date Instructions hydroxyzine 082618 RxNorm 2019-01 oral 25 mg 1 active Take 1 tablet HCl -09 tablet four times a four day as needed times a for 30 day(s) day divalproex 0307718 RxNorm 2018-11 oral 500 mg active for 30 - tablet day(s) extended release 24 hr Abilify 4047002 RxNorm 2018-04 IM 400 mg active for 28 Maintena -03 suspensio day(s) n,extende d rel syring Problems Problem Name Code CodeSystem Alternate Alternate Start End Status Narrative Code CodeSystem Date Date Schizoaffective 32123026 SNOMED-CT 2019- Active disorder, manic 3-22 type Schizoaffective 46155013 SNOMED-CT 2019- Active disorder, manic 3-22 type Schizoaffective [id number] SNOMED-CT 2019-0 Active disorder, manic 3-22 type Relevant diagnostic tests/laboratory data Narrative No Information Procedures Procedure Code CodeSystem Target Date of Status Service Device Device Device Name Site Procedure Delivery Code Name UID Location Psychotherap [id number] SNOMED-CT () 2019-02-23 complete Mental y, 45 04 d Health- minutes with [address], [phone] Psychotherap 605860 SNOMED-CT () 2019-05-07 complete Mental y, 45 04 d Health- minutes with [facility] patient [address], [id number] [phone] Comprehensiv 385740 SNOMED-CT () 2019-01-09 complete Mental e medication 0 d Health- services, [facility] per [place] [address] [place], [place], [id number] [phone] Comprehensiv 397734 SNOMED-CT () 2019-02-06 complete Mental e medication 0 d Health- services, [place] per [place] minutes [address] [place], [place], [id number] [phone] Comprehensiv 469621 SNOMED-CT () 2019-05-07 complete Mental e medication 0 d Health- services, [facility] per [place] [address] [place], [place], [id number] [phone] Comprehensiv 756581 SNOMED-CT () 2019-06-05 complete Mental e medication 0 d Health- services, [facility] per [place] minutes [address] [place], [place], [id number] [phone] Comprehensiv 873397 SNOMED-CT () 2019-07-09 complete Mental e medication 0 d Health- services, [place] [address] [place], [place], [id number] [phone] Comprehensiv 512061 SNOMED-CT () 2019-03-10 complete Mental e medication 0 d Health- services, [facility] per [place] [address] [place], [place], [id number] [phone] Comprehensiv 365486 SNOMED-CT () 2019-04-09 complete Mental e medication 0 d Health- services, [place] per [address] [place] [address] [place] [address], [id number] [phone] Comprehensiv 529966 SNOMED-CT () 2019-08-06 complete Mental e medication 0 d Health- services, [place] [address] [place] [address] [place] [address], [id number] [phone] Comprehensiv 724255 SNOMED-CT () 2019-09-07 complete Mental e medication 0 d Health- services, [facility] per [address] [place] [address] [place] [address], [id number] [phone] Comprehensiv 964582 SNOMED-CT () 2019-10-06 complete Mental e medication 0 d Health- services, [place] per [address] [place] [address] [place] [address], [id number] [phone] Office or 828620 SNOMED-CT () 2019-02-04 complete Mental other 7 d Health- outpatient [facility] visit for [address], of an [place], established [phone] patient, [phone] which requires at least 2 of these 3 herzog components: An expanded problem focused history; An expanded problem focused examination; Medical decision making of low SNOMED-CT () 2019-07-23 complete Mental d Health- [address], [id number] [phone] SNOMED-CT () 2019-09-07 complete Mental d [address], [phone] Encounters/Encounter Diagnoses Encounter Encounter Diagnosis Diagnosis Name Diagnosis Date of Service Name Code Code CodeSystem Diagnosis Delivery Location Non-[place] [id number] [id number] Schizoaffective SNOMED-CT 2019-05-14 Behavioral e disorder, manic Health type Clinic , , , Vital Signs No Information Social History Element Description Description Start End Code CodeSystem AdditionalInfo Date Date SexAssignedAtBirth Male 1979- M AdministrativeGender 11 Hospital Discharge Instructions Reason For Referral Medical Equipment FDA Assessments
--- OUTSIDE RECORDS SUMMARY | 2019-10-12 12:57 | XMS REPORT ---
:1980 Author Organization [facility] Care Team Providers Name Role Phone Carolin Barksdale Primary Care Physician Unavailable Allergies, Adverse Reactions, Alerts Allergy Code CodeSystem Reaction Severity Criticality Status Start Substance Date Moderate Medications Medication Medication Medication Start Stop Route Dose Status Fill Code CodeSystem Date Date Instructions hydroxyzine 741702 RxNorm 2019-01 oral 25 mg 1 active Take 1 tablet HCl -09 tablet four times a four day as needed times a for 30 day(s) day divalproex 0755469 RxNorm 2018-11 oral 500 mg active for 30 - tablet day(s) extended release 24 hr Abilify 4347119 RxNorm 2018-04 IM 400 mg active for 28 Maintena -03 suspensio day(s) n,extende d rel syring Problems Problem Name Code CodeSystem Alternate Alternate Start End Status Narrative Code CodeSystem Date Date Schizoaffective 09200484 SNOMED-CT 2019-0 Active disorder, manic 3-22 type Schizoaffective 07131683 SNOMED-CT 2019-0 Active disorder, manic 3-22 type Schizoaffective 69487806 SNOMED-CT 2019-0 Active disorder, manic 3-22 type Relevant diagnostic tests/laboratory data Narrative No Information Procedures Procedure Code CodeSystem Target Date of Status Service Device Device Device Name Site Procedure Delivery Code Name UID Location Psychotherap [id number] SNOMED-CT () 2019-02-23 complete Mental y, 45 04 d Health- minutes with [address], [id number] [phone] Psychotherap 450160 SNOMED-CT () 2019-05-07 complete Mental y, 45 04 d Health- minutes with [place] patient [address], [phone] Comprehensiv 556101 SNOMED-CT () 2019-01-09 complete Mental e medication 0 d Health- services, [place] per [address] [place] [address] [place] [address], [phone] Comprehensiv 071494 SNOMED-CT () 2019-02-06 complete Mental e medication 0 d Health- services, [place] per [address] [place] [address] [place] [address], [phone] [phone] Comprehensiv 310753 SNOMED-CT () 2019-05-07 complete Mental e medication 0 d Health- services, [place] per [address] [place] [address] [place] [address], [id number] [phone] Comprehensiv 992558 SNOMED-CT () 2019-06-05 complete Mental e medication 0 d Health- services, [place] per [address] [place] [address] [place] [address], [id number] [phone] Comprehensiv 011168 SNOMED-CT () 2019-07-09 complete Mental e medication 0 d Health- services, [place] [address], [phone] Comprehensiv 355838 SNOMED-CT () 2019-03-10 complete Mental e medication 0 d Health- services, [place] per [address] [place] [address] [place] [address], [phone] [phone] Comprehensiv 992574 SNOMED-CT () 2019-04-09 complete Mental e medication 0 d Health- services, [place] [address], [phone] Comprehensiv 359835 SNOMED-CT () 2019-08-06 complete Mental e medication 0 d Health- services, [place] [address] [place] [address] [place] [address], [id number] [phone] Office or 550353 SNOMED-CT () 2019-02-04 complete Mental other 7 d Health- outpatient [place] visit for [address], of an [place], established [phone] patient, [phone] which requires at least 2 of these 3 herzog components: An expanded problem focused history; An expanded problem focused examination; Medical decision making of low SNOMED-CT () 2019-07-[address], [phone] Encounters/Encounter Diagnoses Encounter Encounter Diagnosis Diagnosis Name Diagnosis Date of Service Name Code Code CodeSystem Diagnosis Delivery Location Non-[place] [address]25 [id number] Schizoaffective SNOMED-CT 2019-05-14 Behavioral e disorder, manic Health type Clinic , , , Vital Signs No Information Social History Element Description Description Start End Code CodeSystem AdditionalInfo Date Date SexAssignedAtBirth Male 1979- M AdministrativeGender 10-27 Hospital Discharge Instructions Reason For Referral Medical Equipment FDA Assessments
[2019-10-12 12:58] VITALS: BP 155/100
--- NOTE | 2019-10-12 13:16 | ED ---
Skin Complaint - HPI Summary HPI Summary: 39-year-old male comes in with a chief complaint of swelling in the left side of his abdomen. A one week ago he did a subcutaneous injection of testosterone and he had a swelling in the area ever since that time. Is not gotten any bigger. It is mildly tender to palpation. He normally does testosterone injections IM so this was his first subcutaneous injection of testosterone. He also has had upper respiratory tract infection symptoms for several days with runny nose and sore throat. No fevers or chills. - History of Current Complaint Chief Complaint: UCGeneralIllness Time Seen by Provider: 10/12/19 13:04 Stated Complaint: SOFT TISSUE Pain Intensity: 5 - Additional Pertinent History Primary Care Physician: [id number] - Allergy/Home Medications Allergies/Adverse Reactions: Allergies Allergy/AdvReac Type Severity Reaction Status Date / Time ziprasidone [From Geodon] Allergy Unknown Verified 10/12/19 12:58 Reaction Details Home Medications: Home Medications Cholecalciferol (Vitamin D3) [Vitamin D3] 1 tab PO DAILY 10/12/19 [History Confirmed 10/12/19] PMH/Surg Hx/FS Hx/Imm Hx Previously Healthy: Yes Endocrine/Hematology History: Denies: Hx Diabetes, Hx Thyroid Disease Cardiovascular History: Denies: Hx Hypertension Respiratory History: Denies: Hx Asthma, Hx Chronic Obstructive Pulmonary Disease (COPD) GI History: Denies: Hx Ulcer History: Denies: Hx Dialysis Musculoskeletal History: Reports: Hx Orthopedic Injury - R Humerus fracture Sensory History: Reports: Hx Contacts or Glasses Denies: Hx Cataracts, Hx Deafness, Hx Hearing Aid Opthamlomology History: Reports: Hx Contacts or Glasses Denies: Hx Cataracts Neurological History: Denies: Hx Dementia Psychiatric History: Reports: Hx Schizophrenia - schizoaffective D/O, Hx Bipolar Disorder, Hx of Violent Episodes Against Others Denies: Hx Eating Disorder - Surgical History Surgery Procedure, Year, and Place: Right Fifth Finger Tendon Repair, ~2002, [place] Hx Anesthesia Reactions: No Infectious Disease History: No Infectious Disease History: Denies: Hx Clostridium Difficile, Hx Hepatitis, Hx Human Immunodeficiency Virus (HIV), Hx of Known/Suspected MRSA, Hx Shingles, Hx Tuberculosis, Hx Known/ Suspected VRE, Hx Known/Suspected VRSA, History Other Infectious Disease, Traveled Outside the [place] in Last 30 Days - Family History Known Family History: Positive: Cardiac Disease, Hypertension Negative: Diabetes, Blood Disorder - Social History Alcohol Use: Rare Alcohol Amount: "once every ccouple of weeks" Hx Substance Use: No Substance Use Type: Reports: None Substance Use Comment - Amount & Last Used: marijuana rarely Hx Tobacco Use: No Smoking Status (MU): Never Smoked Tobacco Type: eCigarettes Amount Used/How Often: quit a few years ago Have You Smoked in the Last Year: Yes - vaping Review of Systems Constitutional: Negative Eyes: Negative Positive: Nasal Discharge, Other - SEE HPI Cardiovascular: Negative Respiratory: Negative Gastrointestinal: Negative Musculoskeletal: Negative Positive: Other - SEE HPI Neurological: Negative Psychological: Normal All Other Systems Reviewed And Are Negative: No Physical Exam Triage Information Reviewed: Yes Vital Signs On Initial Exam: Initial Vitals Temp Pulse Resp BP Pulse Ox 98.5 F 99 18 155/100 100 10/12/19 12:54 10/12/19 12:54 10/12/19 12:54 10/12/19 12:54 10/12/19 12:54 Vital Signs Reviewed: Yes Appearance: Positive: Well-Appearing, No Pain Distress, Well-Nourished Skin: Positive: Warm, Dry, Other - On the left side of the abdomen there is a firm mildly fluctuant subcutaneous mass 2 cm wide by 3-1/2 cm long. There is no drainage minimal erythema no streaking. Eyes: Positive: EOMI, RUSSEL ENT: Positive: Pharyngeal erythema, Nasal congestion, Nasal drainage, TMs normal Neck: Positive: Supple Respiratory/Lung Sounds: Positive: Clear to Auscultation Cardiovascular: Positive: RRR Musculoskeletal: Positive: Normal, Strength/ROM Intact Neurological: Positive: Normal Psychiatric: Positive: Normal AVPU Assessment: Alert Diagnostics - Vital Signs Vital Signs Temp Pulse Resp BP Pulse Ox 10/12/19 12:54 98.5 F 99 18 155/100 100 - Laboratory Lab Statement: Any lab studies that have been ordered have been reviewed, and results considered in the medical decision making process. Course/Dx - Course Course Of Treatment: Patient reports the left-sided subcutaneous masses present ever since he did the subcutaneous injection of testosterone. At this time is unsure whether or not it's irritation from this testosterone versus an abscess. We discussed incision and drainage and also antibiotic treatment. At this time we will treat with Keflex and warm compresses. I let him know that if he got worse or to not improve he should get reevaluated. - Diagnoses Provider Diagnoses: Subcutaneous mass of abdominal wall, Upper respiratory infection Discharge ED - Sign-Out/Discharge Documenting (check all that apply): Patient Departure All imaging exams completed and their final reports reviewed: No Studies - Discharge Plan Condition: Stable Disposition: HOME Prescriptions: Cephalexin CAP* [Keflex CAP*] 500 mg PO QID #40 cap Patient Education Materials: Upper Respiratory Infection (ED), Abscess (ED), Cyst (ED) Referrals: Charles Forrester NP [Primary Care Provider] - Additional Instructions: FOLLOW UP WITH YOUR DOCTOR IF NOT COMPLETELY IMPROVED. GET REEVALUATED SOONER IF NOT IMPROVED OR WORSE OR ANY QUESTIONS OR CONCERNS. - Billing Disposition and Condition Condition: STABLE Disposition: Home
== END 2019-10-12 13:26 | disposition home or self-care (01) ==
LOC: UCEAST 12:49
DX: J06.9 Acute upper respiratory infection, unspecified (principal); R19.00 Intra-abdominal and pelvic swelling, mass and lump, unspecified site; Z88.8 Allergy status to other drugs, medicaments and biological substances
CPT/HCPCS: 99212; G0463

== ENCOUNTER 2024-08-17 13:11 | Inpatient (IN) ==
[2024-08-17] MEDS ORDERED: Al Hydrox/Mg Hydrox/Simet LIQ 30 ML UDC PO PRN (16:14)
[2024-08-17] MEDS ORDERED: Nicotine GUM 4MG FRUIT FLAVOR PO PRN (16:14)
[2024-08-18 08:55] LABS: Cholesterol 130 mg/dL; HDL Cholesterol 37.1 mg/dL; LDL Cholesterol 69 mg/dL; Triglycerides 119 mg/dL
[2024-08-18 15:02] LABS: ALT 18 U/L (7-52); AST 17 U/L (13-39); Albumin 3.7 g/dL (3.2-5.2); Albumin/Globulin Ratio 1.4 (1-3); Alcohol, S < 13 mg/dL (<13); Alkaline Phosphatase 36 U/L (35-149); Anion Gap 9 mmol/L (2-16); Blood Urea Nitrogen 18 mg/dL (6-24); CO2 Carbon Dioxide 26 mmol/L (22-32); Calcium 8.9 mg/dL (8.6-10.3); Chloride 104 mmol/L (101-111); Creatinine, Serum 1.25 mg/dL (0.67-1.17); Globulin 2.6 g/dL (2-4); Glucose 93 mg/dL (70-100); Potassium 4.7 mmol/L (3.5-5.0); Sodium 139 mmol/L (135-145); Total Bilirubin 0.5 mg/dL (0.2-1.0); Total Protein 6.3 g/dL (6.4-8.9); eGFR CKD-EPI 74.2 (>60)
[2024-08-18 15:17] LABS: TSH Ultra Thyroid Stim Horm 1.82 mcIU/mL (0.34-5.60)
[2024-08-18 18:04] LABS: ABS Eosinophils 0.2 10^3/uL (0.0-0.5); ABS Lymphocytes 1.8 10^3/uL (1.0-4.8); ABS Monocytes 0.7 10^3/uL (0.0-1.1); ABS Nucleated RBC 0.02 10^3/ul; Eosinophil % 3.7 %; Hematocrit 44.6 % (38-53); Hemoglobin 14.9 g/dL (13.2-16.3); Lymphocyte % 26.3 %; Mean Corpuscular Hgb Conc 33.3 g/dL (31-36); Mean Platelet Volume 8.8 fL (7.5-11.2); Nucleated Red Blood Cells % 0.3 %/100WBC (0.0-0.8); Platelet Count 276 10^3/uL (150-450); Red Blood Count 5.12 10^6/uL (4.06-5.63); Red Cell Distribution Width 14.3 % (12-17); White Blood Count 6.7 10^3/uL (3.6-10.2)
[2024-08-19] MEDS ORDERED: ARIPiprazole LAUROXIL 882mg/3.2 ml SYRINGE IM ONE (10:21)
[2024-08-19] MEDS ORDERED: ARIPiprazole LAUROXIL INITIO 675 MG/2.4 ML SYRINGE IM ONE (10:21)
[2024-08-20] MEDS: ARIPIPRAZOLE 960 MG/3.2 ML IM ONE (15:40)
[2024-08-20] MEDS: OLANZapine 10 mg TAB*ODT ONE (18:47)
[2024-08-20] MEDS: OLANZapine 10 mg TAB*ODT PO ONE (20:21)
[2024-08-27 10:15] VITALS: BP 144/97
== END 2024-08-27 12:00 | disposition home or self-care (01) | DRG 885 ==
LOC: ED 13:11 → EDHOLD 16:14 → BSU 17:52
PROVIDERS: ADMIT Psychiatry & Neurology Psychiatry; ATTEND Psychiatry & Neurology Psychiatry